=== PATIENT | male | born 1990 | race Caucasian/White ===

== ENCOUNTER → 2017-12-02 12:16 | Outpatient (CLI) | payer OTHER, SELFPAY ==
--- NOTE | 2017-12-02 | VAS_PTH ---
PATIENT: GINA HADDAD LOC: [facility] U#:[id number] AGE/SX: 34/M ROOM: RE12/02/[address]: Dr. Bay Chacon MD : 1990 BED: DIS: SPEC #: [id number] RECD: 12/02/17 12:16 STATUS: CONNOR DORSEY #: [id number] PEEWEE: 12/02/17 00:[address]: Bay Chacon DEPT: SURGICAL PATHOLOGY RECD BY: Yuliya Gillespie ENTERED: 12/02/17 14:01 SP TYPE: VAS OTHR DR: Vannessa Primary Care Phys Tissues: A - Vas deferens, NOS B - Vas deferens, NOS Procedures: Surgery Specimen Level II HEADER OPERATION: Bilateral partial vasectomy PRE-OP DIAGNOSIS: Sterilization TISSUE SUBMITTED: A ? Right vas deferens, B ? Left vas deferens MICROSCOPIC DIAGNOSIS A. Right vas deferens: Completely transected segment of vas deferens, no pathologic diagnosis. B. Left vas deferens: Completely transected segment of vas deferens, no pathologic diagnosis. ROSELYN:alonso 12/03/16 MICROSCOPIC DESCRIPTION Slides are reviewed. GROSS DESCRIPTION A - Received in fixative is one container labeled with the patient's name and designated right vas deferens. The specimen consists of a tubular piece of branch soft tissue measuring 0.6 cm in length and 0.2 cm in diameter. The specimen is totally submitted in one cassette. The specimen will be sectioned at the time of embedding. B - Received in fixative is one container labeled with the patient's name and designated left vas deferens. The specimen consists of a U-shaped piece of branch tubular tissue measuring 1.5 cm in length and 0.2 cm in diameter. The specimen is totally submitted in one cassette. The specimen will be sectioned at the time of embedding. / ROSELYN:alonso 12/02/17 TC:4 CPT: 52000 x2
== END ==
PROVIDERS: Visit Provider Surgery
DX: Z30.2 Encounter for sterilization (principal)
CPT/HCPCS: 88302

== ENCOUNTER → 2020-01-04 15:46 | Outpatient (CLI) | payer OTHER, SELFPAY ==
[2019-07-30 08:21] VITALS: BMI 34.0
[2020-01-04 18:10] LABS: Absolute Lymphocyte Count 2.32 X10^3/uL (0.83-4.51); Absolute Neutrophil Count 4.5 X10^3/uL (2.0-7.7); Basophil# 0.04 X10^3/uL; Basophil% 0.5 % (0-1); Eosinophil# 0.27 X10^3/uL; Eosinophils% 3.5 % (0-5); Hemoglobin 15.1 g/dL (13.0-16.5); Lymphocyte # 2.32 X10^3/ul (4.0); Lymphocyte % 30.4 % (19-41); Mean Corp Hgb Conc 32.8 g/dL (32-36); Mean Corpuscular Hgb 28.8 pg (27.0-32.0); Mean Corpuscular Volume 87.8 fL (80-94); Mean Platelet Vol. 9.6 fl (6.2-12.0); Monocyte# 0.49 X10^3/uL; Monocyte% 6.4 % (0-10); NRBC Flagged by Analyzer 0 % (0-5); Neutrophil % 58.9 % (47-70); Platelet Count 236 K/mm3 (150-450); RBC Distribution Width CV 12.7 % (11.6-14.6); Red Blood Count 5.24 M/mm3 (4.6-6.2); White Blood Count 7.6 K/mm3 (4.4-11.0)
[2020-01-04 18:38] LABS: ALB/GLOB Ratio 1.2 RATIO (0.9-2.4); AST(SGOT) 21 U/L (15-37); Alanine Aminotransfer ALT/SGPT 38 U/L (16-61); Alkaline Phosphatase 86 U/L (45-117); Anion Gap 4 (5-15); BUN 19 mg/dL (7-18); Calcium,Total 8.9 mg/dL (8.5-10.1); Chloride 108 mmol/L (98-107); Cholesterol 180 mg/dL (200); Creatinine, Serum 1.12 mg/dL (0.70-1.30); EST Glomerular Filtration Rate 82 mL/min (>60); Est Glom Filt Rate - Afr Amer 100 mL/min (>60); Globulin 3.3 g/dL (2.2-4.2); Glucose 109 mg/dL (74-106); High Density Lipoprotein 58 mg/dL; Potassium 4.1 mmol/L (3.5-5.1); Protein, Total 7.3 g/dL (6.4-8.2); Sodium Level 141 mmol/L (136-145); Thyroid Stim Hormone (TSH) 2.02 uIU/mL (0.358-3.74)
[2020-01-04 18:42] LABS: Microalbumin:Creatinine Ratio 8.1 mg/g CRE (<30 mg/g CRE)
== END ==
PROVIDERS: PCP Family Medicine; Referring Provider Family Medicine; Visit Provider Family Medicine
DX: I10 Essential (primary) hypertension (principal)
CPT/HCPCS: 36415; 80053; 82043; 82465; 82570; 83718; 84443; 85025

== ENCOUNTER 2020-08-17 11:43 | Observation (INO) | payer OTHER, SELFPAY ==
[2019-07-30 08:21] VITALS: BMI 34.0
[2020-08-17] VITALS (14 sets, daily range): BP systolic 130–167; BP diastolic 69–106; PULSE 57–102; RESP 16–18; TEMP 35.9–36.9; O2SAT 93–99; BMI 37.3
--- NOTE | 2020-08-17 11:49 | CT_ITS ---
STUDY: CT ABDOMEN AND PELVIS WITH CONTRAST REASON FOR EXAM: Male, 29 years old. RLQ PAIN X 3 DAYS RADIATION DOSAGE (If Supplied By Facility): CTDIvol = ( 16.94 ) mGy, DLP = ( 1346.00 ) mGycm TECHNIQUE: Transaxial images were obtained from the dome of the diaphragm to the symphysis pubis without oral contrast. IV 100mL Isovue-300 was administered. Sagittal and coronal images were reconstructed. Individualized dose optimization techniques were used for this CT. COMPARISON: None. FINDINGS: The visualized lung bases are unremarkable. The visualized portions of the heart are within normal limits. Normal liver. The gallbladder is contracted. Normal spleen. Normal pancreas. Normal bilateral adrenal glands. There is a 4.3 cm x 4.4 cm cyst in the inferior midportion of the right kidney. There is a 1.7 cm cyst in the anterior midportion of the right kidney. Normal left kidney. Normal visualized stomach. Normal small intestine. Normal colon. Mild degree of periappendiceal inflammatory changes along its proximal aspect. There is dilatation of the proximal aspect of the appendix. There is also evidence of small retroperitoneal lymph nodes in the right lower quadrant. Normal abdominal aorta. Normal inferior vena cava. There is borderline retroperitoneal lymphadenopathy with enlarged nodes no greater than 10mm in the short axis diameter. Normal urinary bladder. Normal abdominal wall. Normal osseous structures. CT/Abdomen/Pelvis W IV Cont ONLY IMPRESSION: Findings suggestive of early acute noncomplicated appendicitis. Electronically Signed: Harvinder Ventura, at 13:56 EDT , Service support ,
--- NOTE | 2020-08-17 11:53 | ED.VIS.GEN ---
History of Present Illness Chief Complaint: Abd Pain Informant: Patient Narrative: 29-year-old male with past medical history of hypertension presents with concern for right lower quadrant pain. States that 2 days ago he began having diffuse abdominal pain which was aching and nonspecific. States that it is to his right lower quadrant yesterday. Describes a sharp and worse with movement. Admits to nausea without vomiting. Denies any constipation or diarrhea. Denies any urinary symptoms. Denies any trauma. Past Medical History - Allergies and Home Meds Allergies/Adverse Reactions: Allergies No Known Allergies Allergy (Verified 08/17/20 11:45) Past Medical History: - - HTN Surgical History: tonsillectomy Lives: With Family Smoking Status: Former smoker Alcohol: None Drugs: None - Family History Maternal Family History: Family History (Last Reviewed 07/30/19 @ 08:20 by Marian Jenkins) Mother Diabetes Hypertension Father Hypertension Review of Systems General: Denies: Chills, Fever, Sweats Eyes: Denies: Visual changes - bilaterally, Diplopia ENT: Denies: Rhinorrhea, Sore throat Cardiovascular: Denies: Chest pain, Palpitations Respiratory: Denies: Dyspnea, Cough, Dyspnea on exertion Gastrointestinal: Reports: Abdominal pain, Nausea. Denies: Vomiting, Diarrhea, Melena, Hematochezia Genitourinary: Denies: Dysuria, Hematuria, Frequency Musculoskeletal: Denies: Back pain, Extremity Pain Skin: Denies: Rash, Wounds Neurological: Denies: Headache, Weakness, Numbness Physical Exam Vital Signs/Narrative: Vital Signs Temp Pulse Resp BP Pulse Ox 08/17/20 11:44 98 F 102 H 16 156/69 H 98 General: Well nourished, Well developed, No Acute Distress Head: Normocephalic, Atraumatic Eyes: Perrl, EOMI ENT: Moist mucous membranes, No rhinorrhea Neck: Supple, Nontender Cardiovascular: Regular rate, Regular rhythm, No murmurs Respiratory: No distress, CTA bilaterally, Chest nontender Abdomen: Soft, Nondistended, Normal bowel sounds, - - TTP in the RLQ. Back: Nontender, Normal Inspection Extremities: Nontender, No edema Skin: Normal color, No rash Neurological: Alert, Oriented x3, Cranial nerves II-XII grossly intact, Normal Strength, Normal Sensation Psychological: Normal affect, Normal Mood Diagnostic/Tx/Re-eval Clinical Impression(s) from Imaging Studies Abdomen/Pelvis CT 08/17/20 11:49 IMPRESSION: Findings suggestive of early acute noncomplicated appendicitis. Electronically Signed: Harvinder Ventura, at 13:56 EDT , Service support , Laboratory Data 08/17/20 08/17/20 08/17/20 12:00 12:00 12:00 WBC 7.5 RBC 5.70 Hgb 16.8 H Hct 48.8 MCV 85.6 MCH 29.5 MCHC 34.4 RDW Std Deviation 36.6 RDW Coeff of Lor 11.9 Plt Count 224 MPV 9.0 Immature Gran % (Auto) 0.300 Neut % (Auto) 68.3 Lymph % (Auto) 20.4 [place] % (Auto) 7.7 Eos % (Auto) 2.9 Baso % (Auto) 0.4 Absolute Neuts (auto) 5.1 Absolute Lymphs (auto) 1.53 Nucleated RBC % 0 Sodium 141 Potassium 3.9 Chloride 109 H Carbon Dioxide 23.0 Anion Gap 9 BUN 27 H Creatinine 1.11 Estim Creat Clear Calc 107.78 Est GFR (MDRD) Af Amer 100 Est GFR (MDRD) Non-Af 83 BUN/Creatinine Ratio 24.3 H Glucose 107 H Lactic Acid 1.4 Calcium 9.4 Total Bilirubin 0.60 Direct Bilirubin 0.14 AST 16 ALT 37 Alkaline Phosphatase 78 Total Protein 8.1 Albumin 4.4 Globulin 3.7 Albumin/Globulin Ratio 1.2 Urine Color Urine Clarity Urine pH Ur Specific [place] Urine Protein Urine Glucose (UA) Urine Ketones Urine Occult Blood Urine Nitrite Urine Bilirubin Urine Urobilinogen Ur Leukocyte Esterase Urine RBC Urine WBC Ur Squamous Epith Cells Urine Bacteria Urine Mucus 08/17/20 13:30 WBC RBC Hgb Hct MCV MCH MCHC RDW Std Deviation RDW Coeff of Lor Plt Count MPV Immature Gran % (Auto) Neut % (Auto) Lymph % (Auto) [place] % (Auto) Eos % (Auto) Baso % (Auto) Absolute Neuts (auto) Absolute Lymphs (auto) Nucleated RBC % Sodium Potassium Chloride Carbon Dioxide Anion Gap BUN Creatinine Estim Creat Clear Calc Est GFR (MDRD) Af Amer Est GFR (MDRD) Non-Af BUN/Creatinine Ratio Glucose Lactic Acid Calcium Total Bilirubin Direct Bilirubin AST ALT Alkaline Phosphatase Total Protein Albumin Globulin Albumin/Globulin Ratio Urine Color Straw Urine Clarity Clear Urine pH 6.0 Ur Specific [place] 1.020 Urine Protein 15 H Urine Glucose (UA) Normal Urine Ketones Negative Urine Occult Blood Negative Urine Nitrite Negative Urine Bilirubin Negative Urine Urobilinogen Normal Ur Leukocyte Esterase Negative Urine RBC 0 SEEN Urine WBC 0-5 SEEN Ur Squamous Epith Cells 0 SEEN Urine Bacteria 1+ Urine Mucus 0 SEEN - Medical Decision Making Patient appears well nontoxic. Vital signs within normal limits. Tenderness to palpation in the right lower quadrant. Lab work within normal limits. Patient was given 1 L of normal saline, morphine, Zofran. CT shows evidence of acute appendicitis. Patient was given Zosyn. Woke with surgeon on-call Dr. Stuart, who was agreeable to taking the patient to the operating room. Admitted in stable condition. Impression: 1. Acute appendicitis ED Disposition - Plan for ED Patient: Disposition: Acute Care [facility]
[2020-08-17] MEDS: Ondansetron 4 MG/2 ML Vial IV (12:14)
[2020-08-17] MEDS: 0.9% Normal Saline 1,000 ML 1000 ML IV (12:14)
[2020-08-17] MEDS: Morphine 4 MG/ML Syringe IV (12:14)
[2020-08-17 12:18] LABS: Absolute Lymphocyte Count 1.53 X10^3/uL (0.83-4.51); Absolute Neutrophil Count 5.1 X10^3/uL (2.0-7.7); Basophil# 0.03 X10^3/uL; Basophil% 0.4 % (0-1); Eosinophil# 0.22 X10^3/uL; Eosinophils% 2.9 % (0-5); Hematocrit 48.8 % (40-54); Hemoglobin 16.8 g/dL (13.0-16.5); Lymphocyte # 1.53 X10^3/ul (4.0); Lymphocyte % 20.4 % (19-41); Mean Corp Hgb Conc 34.4 g/dL (32-36); Mean Corpuscular Hgb 29.5 pg (27.0-32.0); Mean Corpuscular Volume 85.6 fL (80-94); Monocyte# 0.58 X10^3/uL; Monocyte% 7.7 % (0-10); NRBC Flagged by Analyzer 0 % (0-5); Neutrophil # 5.12 X10^3/uL (2.7-7.7); Neutrophil % 68.3 % (47-70); Platelet Count 224 K/mm3 (150-450); RBC Distribution Width CV 11.9 % (11.6-14.6); RBC Distribution Width SD 36.6 fl (35.1-43.9); White Blood Count 7.5 K/mm3 (4.4-11.0)
[2020-08-17 12:46] LABS: Lactic Acid 1.4 mmol/L (0.4-1.9)
[2020-08-17 12:54] LABS: ALB/GLOB Ratio 1.2 RATIO (0.9-2.4); AST(SGOT) 16 U/L (15-37); Alanine Aminotransfer ALT/SGPT 37 U/L (16-61); Albumin, Serum 4.4 g/dL (3.2-5.0); Alkaline Phosphatase 78 U/L (45-117); Anion Gap 9 (5-15); BUN 27 mg/dL (7-18); BUN/Creat Ratio 24.3 RATIO (10-20); Bilirubin, Direct 0.14 mg/dL (0.00-0.30); Calcium,Total 9.4 mg/dL (8.5-10.1); Chloride 109 mmol/L (98-107); Creatinine, Serum 1.11 mg/dL (0.70-1.30); EST Glomerular Filtration Rate 83 mL/min (>60); Est Glom Filt Rate - Afr Amer 100 mL/min (>60); Estimated Creatinine Clearance 107.78 ml/min; Globulin 3.7 g/dL (2.2-4.2); Glucose 107 mg/dL (74-106); Potassium 3.9 mmol/L (3.5-5.1); Protein, Total 8.1 g/dL (6.4-8.2); Sodium Level 141 mmol/L (136-145)
[2020-08-17 13:37] LABS: Mucous, Urine 0 SEEN /hpf (<or=2+); Red Blood Cells-Urine 0 SEEN /hpf (0-5); Squamous Epithelial Cells - UA 0 SEEN /hpf (0-5)
[2020-08-17 13:38] LABS: Color, Urine Straw (Yellow); Glucose, Dipstick Normal (Normal); Ketone-Dipstick Negative (Negative); Leukocyte Esterase-Dipstick Negative /ul (Negative); Nitrite-Dipstick Negative (Negative); Occult Blood-Urine Negative /ul (Negative); Protein-Dipstick 15 mg/dl (Negative); Urine Bilirubin Dipstick Negative (Negative); Urine Clarity Clear (Clear); Urine Urobilinogen Normal (Normal)
[2020-08-17 13:55] LABS: Bacteria 1+ /hpf (None Seen); White Blood Cells 0-5 SEEN /hpf (0-5)
[2020-08-17] MEDS: fentaNYL 100 MCG/2 ML Ampul IV (14:37)
--- NOTE | 2020-08-17 14:54 | HP.PCM_ITS ---
Problem List (1) Acute appendicitis Status: Acute Qualifiers: Acute appendicitis type: unspecified acute appendicitis type Qualified Code(s): K35.80 - Unspecified acute appendicitis History of Present Illness Date of Admission: 08/17/20 The patient is a 29 year old M presented with abdominal pain. CT scan revealed acute appendicitis. The patient reports no nausea or vomiting only pain in the right lower quadrant. Past Medical History Medical History: Medical History (Last Reviewed 07/30/19 @ 08:20 by Marian Jenkins) Epididymitis (Acute) N45.1 Encounter for sterilization (Acute) Z30.2 Allergies No Known Allergies Allergy (Verified 08/17/20 11:45) Home Medications: Ambulatory Orders Medication Instructions Recorded Unobtainable 08/17/20 Surgical History: Surgical History (Last Updated 07/30/19 @ 08:20 by Marian Jenkins) History of tonsillectomy Z98.890, Z90.89 S/P vasectomy Z98.52 Surgical History: tonsillectomy Lives: With Family Smoking Status: Former smoker Alcohol: None Drugs: None - *Family History Maternal Family History: Family History (Last Reviewed 07/30/19 @ 08:20 by Marian Jenkins) Mother Diabetes Hypertension Father Hypertension Review of Systems Constitutional: Denies: Anorexia, Fever HEENT: Denies: Difficulty Swallowing Cardiovascular: Denies: Chest Pain Respiratory: Denies: Cough, Shortness of Breath Gastrointestinal: Reports: Abdominal Pain. Denies: Nausea, Vomiting Musculoskeletal: Denies: Joint Pain Skin: Denies: Dryness, Jaundice Psychiatric: Denies: Anxiety Hematologic/ Lymphatic: Denies: Anemia VTE Information - Inpt Only VTE Present on Admission: No VTE Mechan Device Prophylaxis: SCD's - Physical Exam Vitals/I&O's: Vital Signs Temp Pulse Resp BP Pulse Ox 98 F 80 16 140/76 H 98 08/17/20 11:44 08/17/20 13:34 08/17/20 11:44 08/17/20 13:34 08/17/20 11:44 Oxygen Delivery Method Room Air Weight: 275 lb Body Mass Index (BMI) 37.3 Intake and Output for Last 24 Hours 08/15/20 08/16/20 08/17/20 23:59 23:59 23:59 Intake Total 1000 / 1000 Balance 1000 / 1000 General: Alert, Oriented x3 Neck: No JVD Lungs: Normal air movement Cardiovascular: Regular rate, Regular Rhythm Abdomen: Soft, Non-Distended, Tender - Tender right lower quadrant Musculoskeletal: No Muscle Wasting Neurological: Cranial nerves II-XII grossly intact Psych/Mental Status: Normal Affect Laboratory Results 08/17/20 12:00: WBC 7.5, RBC 5.70, Hgb 16.8 H, Hct 48.8, MCV 85.6, MCH 29.5, MCHC 34.4, RDW Std Deviation 36.6, RDW Coeff of Lor 11.9, Plt Count 224, MPV 9.0, Immature Gran % (Auto) 0.300, Neut % (Auto) 68.3, Lymph % (Auto) 20.4, [place] % (Auto) 7.7, Eos % (Auto) 2.9, Baso % (Auto) 0.4, Absolute Neuts (auto) 5.1, Absolute Lymphs (auto) 1.53, Nucleated RBC % 0 08/17/20 12:00: Sodium 141, Potassium 3.9, Chloride 109 H, Carbon Dioxide 23.0, Anion Gap 9, BUN 27 H, Creatinine 1.11, Estim Creat Clear Calc 107.78, Est GFR (MDRD) Af Amer 100, Est GFR (MDRD) Non-Af 83, BUN/Creatinine Ratio 24.3 H, Glucose 107 H, Calcium 9.4, Total Bilirubin 0.60, Direct Bilirubin 0.14, AST 16, ALT 37, Alkaline Phosphatase 78, Total Protein 8.1, Albumin 4.4, Globulin 3.7, Albumin/Globulin Ratio 1.2 08/17/20 12:00: Lactic Acid 1.4 08/17/20 13:30: Urine Color Straw, Urine Clarity Clear, Urine pH 6.0, Ur Specific [place] 1.020, Urine Protein 15 H, Urine Glucose (UA) Normal, Urine Ketones Negative, Urine Occult Blood Negative, Urine Nitrite Negative, Urine Artem irubin Negative, Urine Urobilinogen Normal, Ur Leukocyte Esterase Negative, Urine RBC 0 SEEN, Urine WBC 0-5 SEEN, Ur Squamous Epith Cells 0 SEEN, Urine Bacteria 1+, Urine Mucus 0 SEEN Clinical Impression(s) from Imaging Studies Abdomen/Pelvis CT 08/17/20 11:49 IMPRESSION: Findings suggestive of early acute noncomplicated appendicitis. Electronically Signed: Harvinder Ventura, at 13:56 EDT , Service support , Assessment/Plan All Active Problems (Last Reviewed 07/30/19 @ 08:20 by Marian Jenkins) Acute appendicitis (Acute) Epididymitis (Acute) Encounter for sterilization (Acute) 29-year-old male with acute appendicitis 1. The patient has acute appendicitis based on CT scan. I discussed this with the patient in detail. The patient has very proximal inflammation of his appendix. I discussed with the patient that this may necessitate conversion to open therapy and ileocecectomy if I was unable to staple across the base of the appendix. I also discussed laparoscopic appendectomy with the patient in detail as well as the risks including but not limited to bleeding, infection, injury to surrounding organs such as the bowel, bladder, ureter. The patient understands all the risks and is well to proceed. Patient was given Zosyn in the emergency room will be taken out of the OR as soon as possible. Gerry Sims MD Pager: [facility] [address] [place] [address], [address] [place] [address] Office:
[2020-08-17] MEDS: Lactated Ringers 1,000 ML 100 ML IV (16:00)
[2020-08-17] MEDS: Bupiv/Epi 0.25% 30 ML Vial (16:48)
--- NOTE | 2020-08-17 16:55 | OP.PCM_ITS ---
Problem List (1) Acute appendicitis Status: Acute Qualifiers: Acute appendicitis type: unspecified acute appendicitis type Qualified Code(s): K35.80 - Unspecified acute appendicitis Report of Operation Date of Procedure: 08/17/20 Pre-Operative Diagnosis: Acute appendicitis Post-Operative Diagnosis: Same Surgery/Procedure Performed:: Laparoscopic appendectomy Specimen's removed: Appendix Description of Procedure: The patient was brought into the operating room and general anesthesia was induced. The left arm was tucked and the abdomen was prepped and draped in usual sterile fashion. A small midline incision was made superior to the umbilicus and deepened to the level of the fascia. The fascia was elevated and incised. The peritoneum was also elevated and incised. A finger sweep was performed and a balloon trocar was placed into the abdomen and inflated. The abdomen was insufflated to 15 mmHg and the camera was inserted and the abdomen was inspected for any injuries upon entering the abdomen. There were none. The patient was placed in Trendelenburg position and a 5 mm ports placed in the left lower quadrant and suprapubic areas under direct visualization. Next using atraumatic bowel graspers the appendix was identified. The appendix was grasped and elevated and Enseal was used to take down the mesoappendix. A stapler was used to come across the base of the appendix. The appendix was then placed in Endo Catch bag and removed through the umbilical incision. The staple line was inspected and found to be hemostatic and intact. The 2 5 mm ports are removed under direct visualization. The balloon trocar was deflated and removed and all the air was removed from the abdomen. The umbilical incision fascia was closed with an 0 Vicryl [id number] suture. The incisions were then irrigated with saline and dried. Local anesthetic was injected into the incision sites. The skin incisions were then closed with interrupted 4-0 Monocryl suture and Steri- Strips. Bandages were applied and the patient was awoken and taken to PACU in stable condition. Patient tolerated the procedure well. - Admit VTE Documentation VTE Mechan Device Prophylaxis: SCD's
[2020-08-17] MEDS: 0.9% Normal Saline 1,000 ML 100 ML IV (18:25)
[2020-08-17] MEDS: Ketorolac 15 MG/ML Vial IV (19:53)
--- NOTE | 2020-08-17 20:28 | NURSING ---
pt stood and ambulated to brp and voided without difficulty
[2020-08-18 03:34] VITALS: BP 128/78; PULSE 90; RESP 16; TEMP 36.6; O2SAT 98
[2020-08-18] MEDS: oxyCODONE 5 MG Tablet PO ×2 (03:44→08:19)
[2020-08-18] MEDS: 0.9% Normal Saline 1,000 ML 100 ML IV (03:44)
--- NOTE | 2020-08-18 07:11 | PCM.WORK.EX ---
Work/School Excuse Work/School Excuse for:: Patient Please excuse this person from:: Work From: 08/18/20 through: 08/22/20 - May return to light duty on 08/23. No lifting over 20 lbs or strenuous activity. May return to full duty work 08/31 Restrictions: Light Duty
--- NOTE | 2020-08-18 07:12 | DCINST_ITS ---
Discharge Diet: Light diet - advance as tolerated Discharge Activity: May Not Drive - for 3-5 days or while taking narcotic pain meds. May shower in (days): 1 Lifting Restrictions: 20 lbs for 2 weeks Call your doctor if your incision/area has: Continuous Slow Oozing, Sudden Increased Bleeding, Increased Pain/ Swelling, Increased Redness, Foul Smelling Discharge Call your doctor if you observe: Fever of 101 or Higher Suture Line Care: Avoid Pulling/Pushing, Avoid Pinching/Bending Additional Dressing/Incision Instructions:: Keep dressing clean and dry. Change or remove dressing in 2 days. Leave steri strips for 1 week. May protect with a gauze bandaid. Medications to take at Discharge Quinapril HCl [Accupril] 5 mg PO QHS 08/17/20 Docusate Sodium [Colace] 100 mg PO BID 10 Days #20 cap 08/18/20 Oxycodone HCl/Acetaminophen [Percocet 5-325 mg Tablet] 1 - 2 tab PO Q6H PRN PRN 5 Days #30 tablet 08/18/20 Allergies/Adverse Reactions: Allergies No Known Allergies Allergy (Verified 08/17/20 11:45) The following prescriptions were given: Docusate Sodium [Colace] 100 mg PO BID 10 Days #20 cap Transmission Status: Pending to [facility] Oxycodone HCl/Acetaminophen [Percocet 5-325 mg Tablet] 1 - 2 tab PO Q6H PRN PRN 5 Days #30 tablet PRN Reason: Pain Score 4-10/10 Transmission Status: Sent to [facility] Test Results: Test results from this visit will be discussed in further detail at your follow- up appointment, if applicable. Please Follow Up With: Gerry Sims MD When: Please call to schedule 2 week follow up appointment. [phone]
[2020-08-18 08:14] VITALS: BP 137/74; PULSE 83; RESP 18; TEMP 36.4; O2SAT 96
--- NOTE | 2020-08-19 17:50 | APP_PTH ---
PATIENT: GINA HADDAD LOC: [facility] U#:[id number] AGE/SX: 29/M ROOM: MS313 RE08/17/[address]: Dr. Gerry Sims MD : 1990 BED: 1 DIS: 08/18/2020 SPEC #: [id number] RECD: 08/20/20 07:19 STATUS: CONNOR WILLIAN #: [id number] PEEWEE: 08/19/20 17:[address]: Gerry Sims DEPT: SURGICAL PATHOLOGY RECD BY: Yuliya Gillespie ENTERED: 08/20/20 09:11 SP TYPE: APPENDIX OTHR DR: Dr. Quintin Mathis MD Tissues: Appendix, NOS Procedures: Surgery Specimen Level III HEADER OPERATION: Laparoscopic appendectomy PRE-OP DIAGNOSIS: Acute appendicitis TISSUE SUBMITTED: Appendix MICROSCOPIC DIAGNOSIS Appendix, appendectomy: Appendix, negative for acute inflammation in the lumen or appendicular wall. See comment. ROSELYN:alonso 08/22/20 COMMENT The entire appendix is submitted. Multiple levels are examined. Focal fibrous lumimal obliteration of the lumen is noted. Case has been reviewed in consultation with Dr. Downs who concurs with the above diagnosis. IDC:AM MICROSCOPIC DESCRIPTION Slides are reviewed. GROSS DESCRIPTION Received in fixative is one container labeled with the patient's name and designated appendix. The specimen consists of an appendix with attached periappendiceal adipose tissue measuring 3.8 cm in length and up to 1 cm in diameter. The attached periappendiceal adipose tissue measures up to 3.5 cm in width. No obvious perforation is identified. The lumen contains small amount of fecal material. No fecalith is identified. Entry Level Administrative Assistant sections are submitted in one cassette. / SJ:alonso 08/20/20 The rest of the appendix is submitted in one more cassettes, #2. / SJ:alonso 08/21/20 TC:4 CPT: 21812
== END 2020-08-18 10:01 | disposition home or self-care (01) ==
LOC: ED 14:14 → MS3 08-20 10:54
PROVIDERS: Admitting Provider Surgery; Emergency Provider Emergency Medicine; PCP Family Medicine; Visit Provider Surgery
PROC: 0DTJ4ZZ Resection of Appendix, Percutaneous Endoscopic Approach (ICD-10-PCS; CPT 44970; principal; 2020-08-17 17:30)
DX: K35.80 Unspecified acute appendicitis (principal); I10 Essential (primary) hypertension; Z87.891 Personal history of nicotine dependence
CPT/HCPCS: 00840; 44970; 74177; 80053; 80076; 81001; 83605; 85025; 88304; 96361; 96365; 96375; 99218; 99284; J7030; J7050; J7120; Q9967; A4216; C1760; G0378; J2405

== ENCOUNTER → 2020-09-18 16:56 | Outpatient (CLI) | payer OTHER, SELFPAY ==
[2020-08-17 19:21] VITALS: BMI 37.3
[2020-09-18 17:50] LABS: Absolute Lymphocyte Count 1.87 X10^3/uL (0.83-4.51); Absolute Neutrophil Count 7.4 X10^3/uL (2.0-7.7); Basophil# 0.02 X10^3/uL; Basophil% 0.2 % (0-1); Eosinophil# 0.11 X10^3/uL; Eosinophils% 1.1 % (0-5); Hematocrit 45.4 % (40-54); Hemoglobin 15.4 g/dL (13.0-16.5); Lymphocyte # 1.87 X10^3/ul (4.0); Lymphocyte % 18.3 % (19-41); Mean Corp Hgb Conc 33.9 g/dL (32-36); Mean Corpuscular Hgb 28.7 pg (27.0-32.0); Mean Corpuscular Volume 84.5 fL (80-94); Mean Platelet Vol. 8.8 fl (6.2-12.0); Monocyte# 0.73 X10^3/uL; Monocyte% 7.2 % (0-10); NRBC Flagged by Analyzer 0 % (0-5); Neutrophil # 7.44 X10^3/uL (2.7-7.7); Neutrophil % 72.9 % (47-70); Platelet Count 204 K/mm3 (150-450); RBC Distribution Width CV 11.8 % (11.6-14.6); RBC Distribution Width SD 35.8 fl (35.1-43.9); Red Blood Count 5.37 M/mm3 (4.6-6.2); White Blood Count 10.2 K/mm3 (4.4-11.0)
[2020-09-18 18:20] LABS: ALB/GLOB Ratio 1.3 RATIO (0.9-2.4); AST(SGOT) 20 U/L (15-37); Alanine Aminotransfer ALT/SGPT 37 U/L (16-61); Albumin, Serum 4.2 g/dL (3.2-5.0); Alkaline Phosphatase 95 U/L (45-117); Anion Gap 5 (5-15); BUN 19 mg/dL (7-18); BUN/Creat Ratio 18.6 RATIO (10-20); Calcium,Total 9.3 mg/dL (8.5-10.1); Chloride 105 mmol/L (98-107); Creatinine, Serum 1.02 mg/dL (0.70-1.30); EST Glomerular Filtration Rate 91 mL/min (>60); Est Glom Filt Rate - Afr Amer 110 mL/min (>60); Globulin 3.3 g/dL (2.2-4.2); Glucose 89 mg/dL (74-106); Potassium 3.9 mmol/L (3.5-5.1); Protein, Total 7.5 g/dL (6.4-8.2); Sodium Level 137 mmol/L (136-145)
[2020-09-21 16:07] LABS: ANTINUCLEAR ANTIBODIES DIRECT Negative (Negative)
[2020-09-22 08:04] LABS: Immunoglobulin E 181 IU/mL (6-495)
== END ==
PROVIDERS: PCP Family Medicine; Referring Provider Family Medicine; Visit Provider Family Medicine
DX: L50.9 Urticaria, unspecified (principal); R79.82 Elevated C-reactive protein (CRP)
CPT/HCPCS: 36415; 80053; 82785; 85025; 86038; 86140

== ENCOUNTER → 2021-09-03 09:36 | Outpatient (CLI) | payer OTHER, SELFPAY ==
--- NOTE | 2021-09-03 09:38 | US_ITS ---
STUDY: SCROTUM ULTRASOUND REASON FOR EXAM: Male, 30 years old. Left testicular pain. TECHNIQUE: Ultrasound evaluation of the scrotum was performed with color Doppler and static carbajal-scale imaging. COMPARISON: None. FINDINGS: RIGHT TESTICLE INTRATESTICULAR: There is a normal size of the right testicle. The right testicle measures 4.6 cm x 3 cm x 2.5 cm. There is a homogenous echotexture. There is normal arterial and normal venous vascularity. There is no demonstrated right testicular mass or cyst. EXTRATESTICULAR: The epididymis is normal in size. The epididymis head measures 1.5 cm x 0.9 cm x 0.6 cm. There is normal vascularity of the epididymis. There is no demonstrated epididymal cystic structure. There is no demonstrated hydrocele. There is no demonstrated varicocele. There is no demonstrated extratesticular mass or cyst. LEFT TESTICLE INTRATESTICULAR: There is a normal size of the left testicle. The left testicle measures 4.4 cm x 3.2 cm x 2.4 cm. There is a homogenous echotexture. There is normal arterial and normal venous vascularity. There is no demonstrated left testicular mass or cyst. EXTRATESTICULAR: The epididymis is normal in size. The epididymis head measures 1 cm x 0.7 cm x 1 cm. There is normal vascularity of the epididymis. There is no demonstrated epididymal cystic structure. There is no demonstrated hydrocele. There is no demonstrated varicocele. There is no demonstrated extratesticular mass or cyst. US/Testicular with Arterial Flow IMPRESSION: Normal bilateral testicles. Electronically Signed: Harvinder Ventura MD at 13:46 EST , Service support ,
== END ==
PROVIDERS: PCP Family Medicine; Referring Provider Surgery; Visit Provider Surgery
DX: N50.812 Left testicular pain (principal); N45.1 Epididymitis
CPT/HCPCS: 76870; 93976

== ENCOUNTER → 2022-07-31 | Outpatient (CLI) | payer OTHER, SELFPAY ==
[2022-07-31 18:33] LABS: ALB/GLOB Ratio 1.2 RATIO (0.9-2.4); AST(SGOT) 20 U/L (15-37); Alanine Aminotransfer ALT/SGPT 38 U/L (16-61); Alkaline Phosphatase 79 U/L (45-117); Anion Gap 5 (5-15); BUN 21 mg/dL (7-18); BUN/Creat Ratio 17.4 RATIO (10-20); Calcium,Total 9.2 mg/dL (8.5-10.1); Chloride 108 mmol/L (98-107); Creatinine, Serum 1.21 mg/dL (0.70-1.30); EST Glomerular Filtration Rate 74 mL/min (>60); Est Glom Filt Rate - Afr Amer 90 mL/min (>60); Globulin 3.2 g/dL (2.2-4.2); Glucose 80 mg/dL (74-106); Potassium 4.2 mmol/L (3.5-5.1); Protein, Total 7.2 g/dL (6.4-8.2); Sodium Level 140 mmol/L (136-145)
== END | disposition home or self-care (01) ==
PROVIDERS: PCP Family Medicine; Referring Provider Family Medicine; Visit Provider Nurse Practitioner Family
DX: R10.9 Unspecified abdominal pain (principal)
CPT/HCPCS: 36415; 80053

== ENCOUNTER → 2022-12-18 | Outpatient (CLI) | payer OTHER, SELFPAY ==
--- NOTE | 2022-12-18 06:30 | MRI_ITS ---
STUDY: MRI LEFT ANKLE WITHOUT CONTRAST REASON FOR EXAM: Male, 32 years old. Fall. Ankle pain. TECHNIQUE: Standardized fat and water weighted pulse sequences were obtained in all 3 orthogonal planes. COMPARISON: X-rays of the right ankle dated June 11, 2013 FINDINGS: Normal subcutis adipose space. Normal posterior tibialis tendon. Normal flexor digitorum longus tendon. Normal flexor hallucis longus tendon. Normal peroneus longus and brevis tendons. Normal tibialis anterior tendon. Normal extensor hallucis longus tendon. Normal extensor digitorum longus tendons. Normal Achilles tendon and teno-osseous insertion. Normal plantar fascia. Normal plantar calcaneal tubercles. Normal intrinsic muscles of the rearfoot. Normal distal tibiofibular syndesmotic ligamentous complex. Normal lateral ligamentous complex. Normal subtalar ligaments and sinus tarsi. Normal deltoid ligamentous complexes. Normal plantar calcaneonavicular (spring) ligament. Moderate arthrosis of the tibiotalar joint with a moderate-sized tibiotalar joint effusion. Bone marrow edema in the talar dome (sagittal series 7 image 16). Moderate arthrosis of the subtalar joint with reactive bone marrow edema and osteophytes (sagittal series 7 images 8-14). Mild arthrosis of the talonavicular joint. Normal calcaneocuboid articulation. Normal navicular-cuneiform articulations. 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 Focal bone marrow edema in the talar dome. No other abnormality. Electronically Signed: Schuyler Mandujano, at 10:04 EST ,
== END | disposition home or self-care (01) ==
PROVIDERS: PCP Family Medicine; Referring Provider Podiatrist Foot & Ankle Surgery; Visit Provider Podiatrist Foot & Ankle Surgery
DX: S92.132A Displaced fracture of posterior process of left talus, initial encounter for closed fracture (principal)
CPT/HCPCS: 73721

== ENCOUNTER → 2023-04-30 | Outpatient (CLI) | payer OTHER, SELFPAY ==
[2023-04-30 18:13] LABS: Microalbumin,Random Urine 22.5 mg/L (NO RANGE EST.); Microalbumin:Creatinine Ratio 6.7 mg/g CRE (<30 mg/g CRE)
[2023-04-30 18:29] LABS: ALB/GLOB Ratio 1.1 RATIO (0.9-2.4); AST(SGOT) 14 U/L (15-37); Alanine Aminotransfer ALT/SGPT 29 U/L (16-61); Albumin, Serum 3.9 g/dL (3.2-5.0); Alkaline Phosphatase 89 U/L (45-117); Anion Gap 8 (5-15); BUN 15 mg/dL (7-18); BUN/Creat Ratio 14.6 RATIO (10-20); Calcium,Total 9.1 mg/dL (8.5-10.1); Chloride 107 mmol/L (98-107); Creatinine, Serum 1.03 mg/dL (0.70-1.30); EST Glomerular Filtration Rate 89 mL/min (>60); Est Glom Filt Rate - Afr Amer 107 mL/min (>60); Globulin 3.6 g/dL (2.2-4.2); Glucose 98 mg/dL (74-106); Potassium 3.7 mmol/L (3.5-5.1); Protein, Total 7.5 g/dL (6.4-8.2); Sodium Level 137 mmol/L (136-145); Thyroid Stim Hormone (TSH) 2.05 uIU/mL (0.358-3.74)
== END | disposition home or self-care (01) ==
LOC: MFPLAB 17:02
PROVIDERS: PCP Family Medicine; Visit Provider Family Medicine
DX: I10 Essential (primary) hypertension (principal)
CPT/HCPCS: 36415; 80053; 82043; 82570; 84443

== ENCOUNTER → 2024-06-23 | Outpatient (CLI) | payer OTHER, SELFPAY ==
[2024-06-23 17:44] LABS: Hematocrit 42.2 % (40-54); Hemoglobin 14.7 g/dL (13.0-16.5); Mean Corp Hgb Conc 34.8 g/dL (32-36); Mean Corpuscular Hgb 29.4 pg (27.0-32.0); Mean Corpuscular Volume 84.4 fL (80-94); Mean Platelet Vol. 9.3 fl (6.2-12.0); Platelet Count 261 K/mm3 (150-450); RBC Distribution Width SD 36.1 fl (35.1-43.9); White Blood Count 9.7 K/mm3 (4.4-11.0)
[2024-06-23 18:17] LABS: ALB/GLOB Ratio 1.2 RATIO (0.9-2.4); AST(SGOT) 20 U/L (15-37); Alanine Aminotransfer ALT/SGPT 43 U/L (16-61); Alkaline Phosphatase 76 U/L (45-117); Anion Gap 7 (5-15); BUN 19 mg/dL (7-18); BUN/Creat Ratio 19.3 RATIO (10-20); Calcium,Total 9.2 mg/dL (8.5-10.1); Chloride 107 mmol/L (98-107); Cholesterol 204 mg/dL (200); Creatinine, Serum 0.98 mg/dL (0.70-1.30); EST Glomerular Filtration Rate 93 mL/min (>60); Est Glom Filt Rate - Afr Amer 112 mL/min (>60); Globulin 3.2 g/dL (2.2-4.2); Glucose 94 mg/dL (74-106); High Density Lipoprotein 52 mg/dL; Potassium 3.8 mmol/L (3.5-5.1); Protein, Total 7.2 g/dL (6.4-8.2); Sodium Level 137 mmol/L (136-145); Triglycerides 205 mg/dL; Very Low Density Lipoprotein 41 mg/dL (5-40)
[2024-06-23 18:31] LABS: Microalbumin,Random Urine 11.4 mg/L (NO RANGE EST.); Microalbumin:Creatinine Ratio 7.5 mg/g CRE (<30 mg/g CRE)
== END | disposition home or self-care (01) ==
LOC: MFPLAB 15:44
PROVIDERS: PCP Family Medicine; Visit Provider Family Medicine
DX: I10 Essential (primary) hypertension (principal); E66.01 Morbid (severe) obesity due to excess calories
CPT/HCPCS: 36415; 80053; 80061; 82043; 82570; 84443; 85027

== ENCOUNTER 2024-07-06 09:17 | Emergency (ER) | payer OTHER, SELFPAY ==
[2024-07-06 09:17] VITALS: BP 131/93; PULSE 74; RESP 16; TEMP 35.9; O2SAT 94; BMI 40.8
--- NOTE | 2024-07-06 09:48 | EX.ED.GENINJ ---
HPI History of Present Illness Chief Complaint: Laceration Detail of Chief Complaint: Laceration dorsal surface right ring finger, PIP joint Informant: patient Onset/Context/Timing Onset: Hours Mechanism/Context: Blunt Injury Location of pain/injuries: - (Right ring finger) Quality of Pain: - (None unless patient moves) Location: Dorsal surface right ring finger, PIP joint Current Severity: Gone Maximum Severity: Mild Worsened by: Movement Relieved by: Rest Associated Symptoms Associated Symptoms: Negative for Parasthesias, Weakness, Loss of function or Inability to ambulate Narrative Narrative: Patient is a 33-year-old [id number] male who presents with laceration that occurred at work to the dorsal surface of his right ring finger. This over the PIP joint. He denies paresthesia, anesthesia motors. He was seen at [facility] and sent to the emergency room since there is no physician until 1 PM. He is on no antithrombotic or anticoagulant. He is on blood pressure medication. Tetanus Immunization: Unknown Prior similar symptoms: No Recent Illness/Hospitalization: No [facility] Medical History (Updated 07/06/24 @ 10:[address] Ivan Hauser MD) Epididymitis Encounter for sterilization Home Medications ?Medication ?Instructions ?Recorded ?Last Taken ?Type quinapril 5 mg tablet 5 mg PO QHS blood pressure 08/17/20 08/16/20 History sulfamethoxazole 800 1 tab PO BID #14 tabs 08/28/21 Unknown Rx mg-trimethoprim 160 mg tablet (Bactrim DS) Allergy/AdvReac Type Severity Reaction Status Date / Time No Known Allergies Allergy Verified 07/06/24 09:19 Family History Mother Diabetes Hypertension Father Hypertension Surgical History S/P appendectomy S/P vasectomy History of tonsillectomy Social History Smoking Status: Former smoker alcohol intake: never ROS ROS ED Musculoskeletal Musculoskeletal: Reports other Details: Laceration dorsal surface right ring finger over the PIP joint Neurologic Neurologic: Denies paresthesias or weakness Hematologic/Lymphatic Hematologic/Lymphatic: Denies easy bleeding or easy bruising EXAM Physical Exam Const Vital Signs: 07/06/24 09:17 Temperature 96.7 F L Temperature Source Temporal Pulse Rate 74 Respiratory Rate 16 Blood Pressure 131/93 H Blood Pressure Mean 105 Pulse Ox 94 Oxygen Delivery Method Room Air Positive well nourished and well developed General Appearance ED: well developed and NAD HEENT HEENT Narrative: Head is normocephalic. atraumatic Eyes PERRL and EOMs intact bilaterally Resp normal respiratory effort Cardio regular rhythm Rate: regular rate Extremity full ROM; Negative for normal to inspection Extremity Narrative: The extensor commonness tendon is functionally intact. The laceration does not appear to penetrate the joint capsule. Will evaluate more closely after patient has been anesthetized. Sensation is normal. Neuro oriented x3 and CN's II-XII intact bilaterally Neuro Narrative: Median, radial and ulnar function intact. Capillary refill is normal. Psych mental status grossly normal and thought process normal Skin Skin Narrative: Curvilinear laceration over the PIP joint dorsal surface right ring finger PROC Procedures Other Procedures Procedure(s): Patient was prepped draped sterile manner. The wound was incised with 1% lidocaine. There is also a linear laceration noted that was 6 mm in length. The wounds were irrigated with 100 cc of normal saline. Using 5-0 Ethilon a total of 3 stitches placed. 2 per the curvilinear laceration 1 for the linear. 1 was placed in the linear because every time the patient flex his finger it with open the wound and would begin to bleed. Patient tolerated procedure. MDM MDM MDM Narrative Medical decision making narrative: Wound that gapes when he flexes his fingers. Will anesthetize and suture. Please see procedure note in my opinion there is no indication for imaging. Discharge Plan Triage Chief Complaint: Laceration ED Provider: Ivan Hauser Dx/Rx/DC Orders Clinical Impression: Laceration of right ring finger, Hypertension Instructions: ED Laceration, Hand: All Closures Prescriptions: No Action sulfamethoxazole-trimethoprim [Bactrim DS] 800-160 mg tablet 1 tab PO BID Qty: 14 0RF quinapril 5 MG tablet 5 mg PO QHS Primary Care Provider: Quintin Mathis Referrals: Quintin Mathis MD [Primary Care Provider] - [facility] - 10 Day for suture removal Print Language: Portuguese Disposition Disposition: Home, Self Care
[2024-07-06] MEDS: Lidocaine 1% (20 ml mdv) 20 ML Vial INFILT (09:58)
== END 2024-07-06 10:54 | disposition home or self-care (01) ==
LOC: ED 10:14
PROVIDERS: Emergency Provider Emergency Medicine; PCP Family Medicine; Visit Provider Emergency Medicine
DX: S61.214A Laceration without foreign body of right ring finger without damage to nail, initial encounter (principal); I10 Essential (primary) hypertension; Z87.891 Personal history of nicotine dependence; X58.XXXA Exposure to other specified factors, initial encounter
CPT/HCPCS: 12001; 99282

== ENCOUNTER → 2025-03-23 | Outpatient (CLI) | payer OTHER, SELFPAY ==
[2025-03-23 18:01] LABS: ALB/GLOB Ratio 1.7 RATIO (0.9-2.4); AST(SGOT) 24 U/L (<=37); Alanine Aminotransfer ALT/SGPT 32 U/L (<=46); Albumin, Serum 4.7 g/dL (3.5-5.0); Alkaline Phosphatase 82 U/L (40-129); Anion Gap 13 (5-15); BUN 17 mg/dL (4-19); BUN/Creat Ratio 17.6 RATIO (10-20); Calcium,Total 9.9 mg/dL (7.6-11.0); Carbon Dioxide 22.4 mmol/L (21.0-32.0); Chloride 102 mmol/L (98-108); Creatinine, Serum 0.97 mg/dL (0.70-1.20); EST Glomerular Filtration Rate 105 (>60); Globulin 2.7 g/dL (2.2-4.2); Glucose 96 mg/dL (70-99); Potassium 3.8 mmol/L (3.3-5.1); Protein, Total 7.4 g/dL (5.9-8.4); Sodium Level 138 mmol/L (133-145); Total Bilirubin 0.44 mg/dL (0.00-1.30)
== END | disposition home or self-care (01) ==
LOC: MTLAB 16:58
PROVIDERS: PCP Family Medicine; Referring Provider Family Medicine; Visit Provider Family Medicine
DX: I10 Essential (primary) hypertension (principal)
CPT/HCPCS: 36415; 80053

== ENCOUNTER 2025-09-06 18:36 | Emergency (ER) | payer OTHER, SELFPAY ==
[2025-09-06 18:38] VITALS: BP 170/111; PULSE 83; RESP 16; TEMP 36.1; O2SAT 99; BMI 41.3
[2025-09-06 23:40] VITALS: PULSE 74; RESP 18; O2SAT 99
--- OUTSIDE RECORDS SUMMARY | 2025-09-06 23:55 | XMS RPT_ITS | CCD ---
Author Organization [facility] Care Team Providers Care Gsa Coordinator Name Role Phone Dr. Micah Mathis Primary Care Provider Dr. Micah Mathis Referring Provider SUMMER Fair Attending Provider Unavailable Primary Care Provider UnavailMICAH Luo MD Primary Care Physician [phone] SUPPEAMON DPM, GUSTAVO Mccarty Attending Unavailable MICAH MATHIS MD Primary Care Unavailable SUPPEAMON DPM, GUSTAVO Mccarty Attending Unavailable MICAH MATHIS MD Primary Care Unavailable Micah Mathis MD Primary Care Provider [phone] MICAH MATHIS Primary Care Unavailable MICAH MATHIS Primary Care Unavailable Dr. Micah Mathis MD Primary Care Provider Dr. Micah Mathis MD Attending Provider Dr. Micah Mathis MD Referring Provider Micah Mathis Attending Micah Weston Primary Care Unavailable Micah Mathis Primary Care Unavailable Micah Mathis Referring Micah Weston Attending Unavailable Ivan Hauser Attending Unavailable Micah Mathis Primary Care Unavailable Medications Current Medications Medication Drug Class(es) Dates Sig (Normalized) Sig (Original) [id number] 200 actuat albuterol 0.09 mg/actuat metered dose inhaler (6 sources) beta2-Adrenergic Agonist Start: 10-07-2022 take 2 puff(s) by inhalation every four hours as needed albuterol HFA (PROVENTIL HFA, VENTOLIN HFA) 90 mcg/actuation inhaler Indications: SOB (shortness of breath) Inhale 2 Puffs as instructed every 4 hours as needed. 1 Each 1 10/07/2022 Active Comment on above: Inhale 2 Puffs as in structed every 4 hours as needed. amoxicillin 875 mg / clavulanate 125 mg oral tablet (1 source) Penicillin-class Antibacterial Start: 04-15-2024 End: 04-22-2024 take 1 tablet by mouth twice daily amoxicillin-clavula helen potassium (AUGMENTIN) 875-125 mg per tablet Indications: Bacterial sinusitis Take 1 tablet by mouth two times a day for 7 days. 14 tablet 0 04/15/2024 04/22/2024 Active betamethasone 0.5 mg/ml / clotrimazole 10 mg/ml topical cream (6 sources) Azole Antifungal, Corticosteroid Start: 06-19-2011 clotrimazole-betame thasone (LOTRISONE) TOPICAL cream Indications: Rash Apply 1 application to affected area twice daily. UNTIL CLEAR FOR UP TO 2-3 WEEKS 30 g 1 06/19/2011 Active Comment on above: Apply 1 application to affected area twice daily. UNTIL CLEAR FOR UP TO 2-3 WEEKS cyclobenzaprine hydrochloride 10 mg oral tablet (6 sources) Muscle Relaxant Start: 11-18-2018 take 1 tablet by mouth every eight hours as needed cyclobenzaprine (FLEXERIL) 10 mg tablet Take 1 tablet by mouth three times daily as needed for Muscle Spasm. 15 tablet 11/18/2018 Active Comment on above: Take 1 tablet by edi three times daily as needed for Muscle Spasm. dextromethorphan hydrobromide 3 mg/ml / promethazine hydrochloride 1.25 mg/ml oral solution (6 sources) Phenothiazine, Uncompetitive Y-orltkl-B-aspartat e Receptor Antagonist, Sigma-1 Agonist Start: 10-07-2022 take 5 mL by mouth four times daily as needed for cough Promethazine-DM (PHENERGAN-DM) 6.25-15 mg/5 mL syrup Indications: Flu-like symptoms , SOB (shortness of breath) Take 5 mL by mouth four times daily as needed for cough. 120 mL 1 10/07/2022 Active Comment on above: Take 5 mL by mouth f our times daily as needed for cough. escitalopram 5 mg oral tablet (4 sources) Serotonin Reuptake Inhibitor Start: 09-18-2023 take 1 tablet by mouth once escitalopram oxalate (LEXAPRO) 5 mg tablet Take 1 tablet by mouth every afternoon. 09/18/2023 Active fluticasone propionate 0.05 mg/actuat metered dose nasal spray (4 sources) Corticosteroid Start: 04-15-2024 take 2 spray(s) by mouth once daily fluticasone (FLONASE) 50 mcg/actuation nasal spray Indications: Bacterial sinusitis Use 2 Sprays in each nostril once daily. Rinse mouth after use. 1 Each 04/15/2024 Active predniSONE 20 mg oral tablet (2 sources) Start: 10-07-2022 End: 10-12-2022 take 2 tablets by mouth once daily predniSONE (DELTASONE) 20 mg tablet Indications: Flu-like symptoms Take 2 tablets by mouth once daily for 5 days. 10 tablet 0 10/07/2022 10/12/2022 Active Comment on above: Take 2 tablets by [facility] once daily for 5 days. quinapril 5 mg oral tablet (10 sources) Angiotensin Converting Enzyme Inhibitor Start: 08-17-2020 take 1 tablet by mouth at bedtime Quinapril 5 MG tablet Active 5 mg PO AT BEDTIME August 17, 2020 12:00am Comment on above: Take 5 mg by mouth. ramipril 5 mg oral capsule (6 sources) Angiotensin Converting Enzyme Inhibitor Start: 09-17-2023 take 1 capsule by mouth once ramipril (ALTACE) 5 mg capsule Take 1 capsule by mouth every afternoon. 09/17/2023 Active Start: 03-04-2023 take 1 capsule by [facility] once daily ramipril 5 mg oral capsule TAKE 1 CAPSULE BY MOUTH EVERY DAY Start Date: 03/04/23 Status: Ordered sulfamethoxazole 800 mg / trimethoprim 160 mg oral tablet (10 sources) Dihydrofolate Reductase Inhibitor Antibacterial, Sulfonamide Antimicrobial Start: 06-19-2011 Sulfamethoxazole-Trimethopri m (Bactrim Ds) 800-160 mg tablet Active 1 {tbl} PO TWICE A DAY August 28, 2021 12:00am Comment on above: Take 2 tablets by [facility] twice daily. tiZANidine 4 mg oral tablet (6 sources) Central alpha-2 Adrenergic Agonist Start: 06-05-2019 take 1 tablet by mouth every six hours as needed tiZANidine (ZANAFLEX) 4 mg tablet Take 1 tablet by mouth every 6 hours as needed. 15 tablet 06/05/2019 Active Comment on above: Take 1 tablet by [facility] every 6 hours as needed. Completed/Discontinued Medications Medication Drug Class(es) Dates Sig (Normalized) Sig (Original) acetaminophen 300 mg / codeine phosphate 30 mg oral tablet (4 sources) Opioid Agonist Start: 12-01-2017 End: 12-09-2017 Acetaminophen-Codei ne (Tylenol-Codeine #3) 300-30 mg tablet Discontinued 1 {tbl} PO EVERY 6 HOURS as needed for pain December 01, 2017 1:00am December 09, 2017 4:43pm acetaminophen 325 mg / oxyCODONE hydrochloride 5 mg oral tablet (8 sources) Opioid Agonist Start: 08-18-2020 End: 08-23-2020 Oxycodone-Acetamino phen 1 EACH tablet Discontinued 1 - 2 {tbl} PO EVERY 6 HOURS NEEDED as needed for Pain Score 4-10/10 24 03August 18, 2020 August 22, 2020 12:00am August 23, 2020 12:03am Start: 08-18-2020 End: 08-23-2020 take 1 tablet by mouth every six hours as needed Oxycodone-Acetaminophen Discontinued 1 - 2 TABLET PO EVERY 6 HOURS NEEDED 24 03August 18, 2020 August 23, 2020 12:03am Start: 12-29-2015 End: 11-25-2017 Oxycodone-Acetaminophen 1 TA BLET tablet Discontinued 1 - 2 {tbl} PO EVERY 4 HOURS NEEDED as needed for Pain December 29, 2015 1:00am November 25, 2017 2:11pm Start: 12-29-2015 End: 11-25-2017 take 1 tablet by mouth every four hours as needed Oxycodone-Acetaminophen Discontinued 1 - 2 TABLET PO EVERY 4 HOURS NEEDED December 29, 2015 1:00am November 25, 2017 2:11pm ciprofloxacin 500 mg oral tablet (16 sources) Quinolone Antimicrobial Start: 08-27-2021 End: 08-28-2021 take 1 tablet by mouth twice daily Ciprofloxacin Hcl (Cipro) 500 mg tablet Discontinued 500 mg PO TWICE A DAY August 27, 2021 12:00am August 28, 2021 2:00pm Start: 07-21-2018 End: 08-02-2019 take 1 tablet by mouth twice daily Ciprofloxacin Hcl (Cipro) 500 mg tablet Discontinued 500 mg PO TWICE A DAY 07 30July 28, 2019 12:00am August 01, 2019 12:00am August 02, 2019 12:07am dicyclomine hydrochloride 20 mg oral tablet (4 sources) Anticholinergic Start: 12-23-2013 End: 11-25-2017 take 1 tablet by mouth four times daily Dicyclomine 20 MG tablet Discontinued 20 mg PO 4 TIMES DAILY December 23, 2013 1:00am November 25, 2017 2:11pm docusate sodium 100 mg oral capsule (4 sources) Start: 08-18-2020 End: 08-28-2020 take 1 capsule by mouth twice daily Docusate Sodium 100 MG capsule Discontinued 100 mg PO TWICE A DAY 14 08August 18, 2020 12:00am August 27, 2020 1:00am August 28, 2020 1:02am LORazepam 1 mg oral tablet (4 sources) Benzodiazepine Start: 11-24-2017 End: 12-09-2017 take 1 tablet by mouth once Lorazepam (Ativan) 1 mg tablet Discontinued 1 mg PO As Directed November 24, 2017 1:00am December 09, 2017 4:43pm 1 hour prior to procedure penicillin v potassium 500 mg oral tablet (4 sources) Start: 12-29-2015 End: 11-25-2017 take 1 tablet by mouth four times daily Penicillin V Potassium 500 MG tablet Discontinued 500 mg PO 4 TIMES DAILY December 29, 2015 1:00am November 25, 2017 2:11pm Problems Active Problems Problem Classification Problem Date Documented Da te Episodic/Chronic Appendicitis and other appendiceal conditions (4 sources) Acute appendicitis; Translations: [Unspecified acute appendicitis] 08-17-2020 Episodic Contraceptive and procreative management (4 sources) Patient encounter status; Translations: [Encounter for sterilization] 12-09-2017 Episodic Essential hypertension (5 sources) Hypertensive disorder; Translations: [Essential (primary) hypertension] Onset: 03-28-2025 06-18-2021 Chronic Fracture of lower limb (2 sources) Displaced fracture of posterior process of left talus, subsequent encounter for fracture with delayed healing; Translations: [Displaced fracture of posterior process of left talus, subsequent encounter for fracture with delaye] Onset: 03-20-2023 Episodic Immunizations and screening for infectious disease (4 sources) Contact with or exposure to other viral diseases; Translations: [Exposure to COVID-19 virus] 06-18-2021 Episodic Inflammatory conditions of male genital organs (4 sources) Epididymitis; Translations: [Epididymitis] 07-21-2018 Episodic Other eye disorders (1 source) Discharge from eye; Translations: [Other specified disorders of eye and adnexa] 04-15-2024 Episodic Other lower respiratory disease (1 source) Dyspnea; Translations: [Shortness of breath] Episodic Other male genital disorders (4 sources) Pain of left testicle; Translations: [Left testicular pain] 08-28-2021 Episodic Other upper respiratory disease (4 sources) Respiratory tract congestion; Translations: [Nasal congestion] 07-04-2021 Episodic Other upper respiratory disease (1 source) Other specified disorders of nose and nasal sinuses; Translations: [Other disease of nasal cavity and sinuses] 04-15-2024 Episodic Other upper respiratory infections (1 source) Bacterial sinusitis; Translations: [Chronic sinusitis, unspecified] 04-15-2024 Chronic Other upper respiratory infections (5 sources) Acute upper respiratory infection; Translations: [Acute upper respiratory infection, unspecified] 06-18-2021 Episodic Residual codes; unclassified (1 source) Influenza-like symptoms; Translations: [Other general symptoms and signs] Episodic Past or Other Problems Problem Classification Problem Date Documented Da te Episodic/Chronic Open wounds of extremities (2 sources) Laceration of right ring finger; Translations: [Laceration without foreign body of right ring finger without damage to nail, initial encounter] Onset: 07-27-2024 07-14-2024 Episodic Results Test Name Value Interpretation Reference Range Facility Anion gap in Serum or Plasma Ordered By: Micah Mathis on 03-23-2025 Anion gap [Moles/Vol] 13 mmol/L 5-15 [facility] BUN/creatinine ratioOrdered By: Micah Mathis on 03-23-2025 Urea nitrogen/Creatinine [Mass ratio] 17.6 mg/mg 10- [facility] Bilirubin, totalOrdered By: Micah Mathis on 03-23-2025 Bilirubin [Mass/Vol] 0.44 mg/dL 0.00-1.30 [facility] Carbon dioxide, total [Moles /volume] in Central venous bloodOrdered By: Micah Mathis on 03-23-2025 CO2 [Moles/Vol] 22.4 mmol/L 21.0-32.0 [facility] Chloride assayOrdered By: Mao Mathis on 03-23-2025 Chloride [Moles/Vol] 102 mmol/L 98-108 [facility] Comprehensive Metabolic Prof ilon 03-23-2025 Albumin [Mass/Vol] 4.7 g/dL Normal 3.5-5.0 [facility] Comment on above: Order Comment: Order Date: 03/23/25 Order Info: 0786-1 - CMP Performed By: #### [id number] #### [facility] [address] [place], [address] Albumin/Globulin [Mass ratio] 1.7 {ratio} Normal 0.9-2.4 [facility] Comment on above: Order Comment: Order Date: 03/23/25 Order Info: 0786-1 - CMP Performed By: #### [id number] #### [facility] [address] [place], [address] ALK PHOS 82 U/L Normal 40-129 [facility] Comment on above: Order Comment: Order Date: 03/23/25 Order Info: 0786-1 - CMP Performed By: #### [id number] #### [facility] [address] [place], [address] ALT [Catalytic activity/Vol] 32 U/L Normal <=46 [facility] Comment on above: Order Comment: Order Date: 03/23/25 Order Info: 0786-1 - CMP Performed By: #### [id number] #### [facility] [address] [place], [address] AST [Catalytic activity/Vol] 24 U/L Normal <=37 [facility] Comment on above: Order Comment: Order Date: 03/23/25 Order Info: 0786-1 - CMP Performed By: #### [id number] #### [facility] [address] [place], [address] Bilirubin [Mass/Vol] 0.44 mg/dL Normal 0.00-1.30 [facility] Comment on above: Order Comment: Order Date: 03/23/25 Order Info: 0786-1 - CMP Performed By: #### [id number] #### [facility] [address] [place], [address] BUN/CRE 17.6 RATIO Normal 10-20 [facility] Comment on above: Order Comment: Order Date: 03/23/25 Order Info: 0786-1 - CMP Performed By: #### [id number] #### [facility] [address] [place], [address] Calcium [Mass/Vol] 9.9 mg/dL Normal 7.6-11.0 [facility] Comment on above: Order Comment: Order Date: 03/23/25 Order Info: 0786-1 - CMP Performed By: #### [id number] #### [facility] [address] [place], [address] Chloride [Moles/Vol] 102 mmol/L Normal 98-108 [facility] Comment on above: Order Comment: Order Date: 03/23/25 Order Info: 0786-1 - CMP Performed By: #### L [id number] #### [facility] [address] [place], [address] CO2 [Moles/Vol] 22.4 mmol/L Normal 21.0-32.0 [facility] Comment on above: Order Comment: Order Date: 03/23/25 Order Info: 0786-1 - CMP Performed By: #### L [id number] #### [facility] [address] [place], [address] Creatinine [Mass/Vol] 0.97 mg/dL Normal 0.70-1.20 [facility] Comment on above: Order Comment: Order Date: 03/23/25 Order Info: 0786-1 - CMP Performed By: #### L [id number] #### [facility] [address] [place], [address] GAP 13 Normal 5-15 [facility] Comment on above: Order Comment: Order Date: 03/23/25 Order Info: 0786-1 - CMP Performed By: #### L [id number] #### [facility] [address] [place] [place], [address] GFR/1.73 sq M.predicted among non-blacks MDRD (S/P/Bld) [Vol rate/Area] 105 mL/min/{1.73_m2} Normal >60 [facility] Comment on above: Order Comment: Order Date: 03/23/25 Order Info: 0786-1 - CMP Result Comment: mL/m in/1.73m2 CKD-EPI Creatinine Equation (2020) Performed By: #### L [id number] #### [facility] [address] [place], [address] Globulin (S) [Mass/Vol] 2.7 g/dL Normal 2.2-4.2 [facility] Comment on above: Order Comment: Order Date: 03/23/25 Order Info: 0786-1 - CMP Performed By: #### L [id number] #### [facility] [address] [place], [address] Glucose [Mass/Vol] 96 mg/dL Normal 70-99 [facility] Comment on above: Order Comment: Order Date: 03/23/25 Order Info: 0786-1 - CMP Performed By: #### L [id number] #### [facility] [address] [place], [address] Potassium [Moles/Vol] 3.8 mmol/L Normal 3.3-5.1 [facility] Comment on above: Order Comment: Order Date: 03/23/25 Order Info: 0786-1 - CMP Performed By: #### L [id number] #### [facility] [address] [place], [address] Sodium [Moles/Vol] 138 mmol/L Normal 133-145 [facility] Comment on above: Order Comment: Order Date: 03/23/25 Order Info: 0786-1 - CMP Performed By: #### L [id number] #### [facility] [address] [place] [place], [address] T PROT 7.4 g/dL Normal 5.9-8.4 [facility] Comment on above: Order Comment: Order Date: 03/23/25 Order Info: 0786-1 - CMP Performed By: #### L [id number] #### [facility] [address] [place], [address] Urea nitrogen [Mass/Vol] 17 mg/dL Normal 4-19 [facility] Comment on above: Order Comment: Order Date: 03/23/25 Order Info: 0786-1 - CMP Performed By: #### L [id number] #### [facility] [address] [place], [address] Glomerular filtration rate ( GFR) estimation/1.73 sq m using serum, plasma, or whole bOrdered By: Micah Mathis on 03-23-2025 GFR/1.73 sq M.predicted among non-blacks MDRD (S/P/Bld) [Vol rate/Area] 105 mL/min/{1.73_m2} >60 [facility] Comment on above: mL/min/1.73m2 CKD-EP I Creatinine Equation (2020) Laboratory - Chemistry and C hemistry - challengeOrdered By: Micah Mathis on 03-23-2025 AST [Catalytic activity/Vol] 24 U/L <38 [facility] Potassium measurement (mass/ volume)Ordered By: Micah Mathis on 03-23-2025 Potassium (Unsp spec) [Mass/Vol] 3.8 mmol/L 3.3-5.1 [facility] Serum creatinine measurement (mass/volume)Ordered By: Micah Mathis on 03-23-2025 Creatinine [Mass/Vol] 0.97 mg/dL 0.70-1.20 [facility] Serum globulin measurementOr dered By: Micah Mathis on 03-23-2025 Globulin (S) [Mass/Vol] 2.7 g/dL 2.2-4.2 [facility] Serum glucose measurement (m ass/volume)Ordered By: Micah Mathis on 03-23-2025 Glucose [Mass/Vol] 96 mg/dL 70-99 [facility] Serum or plasma alanine vo otransferase (ALT) measurementOrdered By: Micah Mathis on 03-23-2025 ALT [Catalytic activity/Vol] 32 U/L <47 [facility] Serum or plasma albumin ev urement (mass/volume)Ordered By: Micah Mathis on 03-23-2025 Albumin [Mass/Vol] 4.7 g/dL 3.5-5.0 [facility] Serum or plasma albumin/glob ulin mass ratioOrdered By: Micah Mathis on 03-23-2025 Albumin/Globulin [Mass ratio] 1.7 {ratio} 0.9-2.4 [facility] Serum or plasma alkaline suman sphatase measurementOrdered By: Micah Mathis on 03-23-2025 ALP [Catalytic activity/Vol] 82 U/L 40-129 [facility] Serum or plasma calcium ev urement (mass/volume)Ordered By: Micah Mathis on 03-23-2025 Calcium [Mass/Vol] 9.9 mg/dL 7.6-11.0 [facility] Serum or plasma urea nitroge n measurement (mass/volume)Ordered By: Micah Mathis on 03-23-2025 Urea nitrogen [Mass/Vol] 17 mg/dL 4-19 [facility] Sodium levelOrdered By: Micah Mathis on 03-23-2025 Sodium [Moles/Vol] 138 mmol/L 133-145 [facility] Total proteinOrdered By: Dyan Mathis on 03-23-2025 Protein [Mass/Vol] 7.4 g/dL 5.9-8.4 [facility] CNOVon 02-06-2025 CNOV Office Visit ([facility]) GINA GILMAN ([id number]) 1990 M Date Time Provider Department 02/06/25 9:00 AM [facility]CE [facility] During your visit today, we recorded the following information about you: Temperature Pulse Respiration Blood pressure 97 degrees 75/minute 16/minute 122/78 Weight 133.7 kg Angie Arce APRN.[facility] 02/06/2025 9:39 AM Signed [facility] Subjective Gina Gilman is a 34 year old male. Patient presents with: Cough: Cough, chest congestion, bodyaches and RAE x 1 day Cough Associated symptoms include chills, headaches, sore throat and wheezing. Pertinent negatives include no chest pain and no shortness of breath. patient is a 34-year-old male with no major medical history that presents with bodyaches, cough and a headache that came on gradually for 1 day. He denies any changes in his vision, fever. He did take some Tylenol last night. That did seem to help with the symptoms. There has been flu and COVID at work and just wants to be sure that not what it is. He denies any chest pain shortness of breath no nausea vomiting or abdominal pain. Review of Systems Constitutional: Positive for chills and fatigue. HENT: Positive for congestion and sore throat. Respiratory: Positive for cough and wheezing. Negative for shortness of breath. Cardiovascular: Negative for chest pain. Neurological: Positive for headaches. Objective BP 122/78 Pulse 75 Temp 36.1 ?C (97 ?F) (Tympanic) Resp 16 Wt 133.7 kg (294 lb 12.1 oz) SpO2 96% Physical Exam Vitals reviewed. Constitutional: Appearance: Normal appearance. HENT: Head: Normocephalic and atraumatic. Right Ear: Tympanic membrane, ear canal and external ear normal. Left Ear: Tympanic membrane, ear canal and external ear normal. Nose: Congestion present. No rhinorrhea. Mouth/Throat: Mouth: Mucous membranes are moist. Pharynx: Oropharynx is clear. No oropharyngeal exudate or posterior oropharyngeal erythema. Cardiovascular: Rate and Rhythm: Normal rate and regular rhythm. Pulses: Normal pulses. Heart sounds: Normal heart sounds. Pulmonary: Effort: Pulmonary effort is normal. No respiratory distress. Breath sounds: Normal breath sounds. No stridor. Chest: Chest wall: No tenderness. Abdominal: General: Bowel sounds are normal. Lymphadenopathy: Cervical: No cervical adenopathy. Neurological: Mental Status: He is alert. {ASSESSMENT/PLAN: 1. Viral URI with cough - ICD9: 465.9, ICD10: J06.9 - Discussed viral etiology and rationale for treatment. - Symptomatic treatment with prn analgesia - Supportive care with fluids and rest - The patient may also use OTC cough and cold meds as needed, warm salt water gargles, throat lozenges and/or OTC throat spray as needed, nasal saline gtts and suction prn, and Flonase/Nasicort. - COVID AND INFLUENZA A/B AND RSV PCR, ROUTINE Angie Arce APRN.CNP History and Record Review External record(s) reviewed: prior outpatient record. Findings from review of outpatient records: previous urgent care record Differential Diagnoses - viral infection is more likely for the following reason(s): suggested by HANDP - pneumonia is less likely for the following reason(s): HANDP not suggestive Additional Tests or Interventions The following testing was considered but ultimately not selected after discussion with patient/family: Chest x-ray not clinically indicated The following medication(s) were considered but not ordered: Antibiotics not clinically indicated at this time. Disposition The patient was discharged. OTC Medications were advised: Tylenol ibuprofen, Nasacort Flonase, decongestant such as Claritin-D patient is well-appearing nontoxic in no acute respiratory distress. He presents with a viral upper respiratory infection. No concern for pneumonia or acute cardiopulmonary process today. COVID and flu are pending. Recommend [id number] symptom management such as Tylenol ibuprofen Flonase Nasacort decongestants as needed. Return with any new or worsening symptoms patient verbalized understanding discharged home. Angie Arce APRN.CNP 02/06/2025 9:39 AM Signed Patient presents with: Cough: Cough, chest congestion, bodyaches and RAE x 1 day I recommend you follow up with your Primary Care Provider (Physician, Nurse Practitioner, or Physician [facility]). YOU SHOULD SEEK MEDICAL ATTENTION IMMEDIATELY AT THE NEAREST EMERGENCY DEPARTMENT IF ANY OF THE FOLLOWING OCCURS Call 911 if you have chest pain, heaviness or discomfort Fever (temperature higher than 100.4? F / 38? C) and it doesn't go away or gets worse after 2-3 days of antibiotics Unusual or increasing pain Lightheadedness Feeling sicker at any time or not getting better as expected Can't catch your breath or have shortness of breath Were seen for eye problems and have eye pain, marlene (more content not included)... [facility]) GINA GILMAN ([id number]) 1990 M Date Time Provider Department 02/06/25 ANGIE ARCE [facility] During your visit today, we recorded the following information about you: Fahad Puente, CARMELO 02/06/2025 3:32 PM Signed Pt called in asking for the results of his Covid test. I let him know that were not back, and they they would call him once they cam in. Pt verbalized understanding. Allergies As of Date: 02/06/2025 (No Known Allergies) Date Reviewed: 02/06/2025 Reviewed by: Rossy Connors LPN - Fully Assessed Reason for Visit: Results [95] Prescriptions as of 02/06/2025 - fluticasone (FLONASE) 50 mcg/actuation nasal spray Use 2 Sprays in each nostril once daily. Rinse mouth after use. - escitalopram oxalate (LEXAPRO) 5 mg tablet Take 1 tablet by mouth every afternoon. - ramipril (ALTACE) 5 mg capsule Take 1 capsule by mouth every afternoon. - quinapril (ACCUPRIL) 5 mg tablet Take 5 mg by mouth. - Promethazine-DM (PHENERGAN-DM) 6.25-15 mg/5 mL syrup Take 5 mL by mouth four times daily as needed for cough. - albuterol HFA (PROVENTIL HFA, VENTOLIN HFA) 90 mcg/actuation inhaler Inhale 2 Puffs as instructed every 4 hours as needed. - tiZANidine (ZANAFLEX) 4 mg tablet Take 1 tablet by mouth every 6 hours as needed. - cyclobenzaprine (FLEXERIL) 10 mg tablet Take 1 tablet by mouth three times daily as needed for Muscle Spasm. - sulfamethoxazole-tri methoprim (BACTRIM DS) 800-160 mg ORAL per tablet Take 2 tablets by mouth twice daily. - clotrimazole-betamet hasone (LOTRISONE) TOPICAL cream Apply 1 application to affected area twice daily. UNTIL CLEAR FOR UP TO 2-3 WEEKS Problem List As Of Date: 02/06/2025 (None) Encounter Status:Closed by FAHAD PUENTE on 02/06/25 [facility] Emergency Department Summary on 07-06-2024 Emergency Department Summary [facility] Medical Records Department [address] [place] [address] Emergency Department Summary 07/06/24 MR#: [id number] Acct: [id number] Name: GINA GILMAN Rep #: [id number] : 1990 33 From: Ivan Hauser MD PCP: Dr. Micah Mathis MD Status:PRE ER Location: ED HPI History of Present Illness Chief Complaint: Laceration Detail of Chief Complaint: Laceration dorsal surface right ring finger, PIP joint Informant: patient Onset/Context/Timing Onset: Hours Mechanism/Context: Blunt Injury Location of pain/injuries: - (Right ring finger) Quality of Pain: - (None unless patient moves) Location: Dorsal surface right ring finger, PIP joint Current Severity: Gone Maximum Severity: Mild Worsened by: Movement Relieved by: Rest Associated Symptoms Associated Symptoms: Negative for Parasthesias, Weakness, Loss of function or Inability to ambulate Narrative Narrative: Patient is a 33-year-old vrzwr-zttf-ldqfjkvd male who presents with laceration that occurred at work to the dorsal surface of his right ring finger. This over the PIP joint. He denies paresthesia, anesthesia motors. He was seen at [facility] and sent to the emergency room since there is no physician until 1 PM. He is on no antithrombotic or anticoagulant. He is on blood pressure medication. Tetanus Immunization: Unknown Prior similar symptoms: No Recent Illness/Hospitalizat ion: No [facility] Medical History (Updated 07/06/24 @ 10:[address] Ivan Hauser MD) Epididymitis Encounter for sterilization Home Medications ???Medication ???Instructions ???Recorded ???Last Taken ???Type quinapril 5 mg tablet 5 mg PO QHS blood pressure 08/17/20 08/16/20 History sulfamethoxazole 800 1 tab PO BID #14 tabs 08/28/21 Unknown Rx mg-trimethoprim 160 mg tablet (Bactrim DS) Allergy/AdvReac Type Severity Reaction Status Date / Time No Known Allergies Allergy Verified 07/06/24 09:19 Family History Mother Diabetes Hypertension Father Hypertension Surgical History S/P appendectomy S/P vasectomy History of tonsillectomy Social History Smoking Status: Former smoker alcohol intake: never ROS ROS ED Musculoskeletal Musculoskeletal: Reports other Details: Laceration dorsal surface right ring finger over the PIP joint Neurologic Neurologic: Denies paresthesias or weakness Hematologic/Lymphati c Hematologic/Lymphati c: Denies easy bleeding or easy bruising EXAM Physical Exam Const Vital Signs: 07/06/24 09:17 Temperature 96.7 F L Temperature Source Temporal Pulse Rate 74 Respiratory Rate 16 Blood Pressure 131/93 H Blood Pressure Mean 105 Pulse Ox 94 Oxygen Delivery Method Room Air Positive well nourished and well developed General Appearance ED: well developed and NAD HEENT HEENT Narrative: Head is normocephalic. atraumatic Eyes PERRL and EOMs intact bilaterally Resp normal respiratory effort Cardio regular rhythm Rate: regular rate Extremity full ROM; Negative for normal to inspection Extremity Narrative: The extensor commonness tendon is functionally intact. The laceration does not appear to penetrate the joint capsule. Will evaluate more closely after patient has been anesthetized. Sensation is normal. Neuro oriented x3 and CN's II-XII intact bilaterally Neuro Narrative: Median, radial and ulnar function intact. Capillary refill is normal. Psych mental status grossly normal and thought process normal Skin Skin Narrative: Curvilinear laceration over the PIP joint dorsal surface right ring finger PROC Procedures Other Procedures Procedure(s): Patient was prepped draped sterile manner. The wound was incised with 1% lidocaine. There is also a linear laceration noted that was 6 mm in length. The wounds were irrigated with 100 cc of normal saline. Using 5-0 Ethilon a total of 3 stitches placed. 2 per the curvilinear laceration 1 for the linear. 1 was placed in the linear because every time the patient flex his finger it with open the wound and would begin to bleed. Patient tolerated procedure. MDM MDM MDM Narrative Medical decision making narrative: Wound that gapes when he flexes his fingers. Will anesthetize and suture. Please see procedure note in my opinion there is no indication for imaging. Discharge Plan Triage Chief Complaint: Laceration ED Provider: Ivan Hauser Dx/Rx/DC Orders Clinical Impression: Laceration of right ring finger, Hypertension Instructions: ED Laceration, Hand: All Closures Prescriptions: No Action sulfamethoxazole-tri methoprim [Bactrim DS] 800-160 mg tablet 1 tab PO BID Qty: 14 0RF quinapril 5 MG tablet (more content not included)... Normal [facility] CBC-Complete Blood Cnt No Di ffon 06-23-2024 Erythrocyte distribution width (RBC) [Ratio] 12.0 % Normal 11.6-14.6 [facility] Comment on above: Order Comment: Order Date: 06/20/24 Order Info: [id number] - CBC Performed By: #### L 100.0500, L501.9520, L500.4050, L502.0250 #### [facility] [address] [place] [place], [address] (362) Hematocrit (Bld) [Volume fraction] 42.2 % Normal 40-54 [facility] Comment on above: Order Comment: Order Date: 06/20/24 Order Info: [id number] - CBC Performed By: #### L 100.0500, L501.9520, L500.4050, L502.0250 #### [facility] [address] [place], [address] Hemoglobin (Bld) [Mass/Vol] 14.7 g/dL Normal 13.0-16.5 [facility] Comment on above: Order Comment: Order Date: 06/20/24 Order Info: [id number] - CBC Performed By: #### L 100.0500, L501.9520, L500.4050, L502.0250 #### [facility] [address] [place], [address] MCH (RBC) [Entitic mass] 29.4 pg Normal 27.0-32.0 [facility] Comment on above: Order Comment: Order Date: 06/20/24 Order Info: [id number] - CBC Performed By: #### L 100.0500, L501.9520, L500.4050, L502.0250 #### [facility] [address] [place], [address] MCHC (RBC) [Mass/Vol] 34.8 g/dL Normal 32-36 [facility] Comment on above: Order Comment: Order Date: 06/20/24 Order Info: [id number] - CBC Performed By: #### L 100.0500, L501.9520, L500.4050, L502.0250 #### [facility] [address] [place], [address] MCV (RBC) [Entitic vol] 84.4 fL Normal 80-94 [facility] Comment on above: Order Comment: Order Date: 06/20/24 Order Info: [id number] - CBC Performed By: #### L 100.0500, L501.9520, L500.4050, L502.0250 #### [facility] [address] [place], [address] Platelet mean volume (Bld) [Entitic vol] 9.3 fL Normal 6.2-12.0 [facility] Comment on above: Order Comment: Order Date: 06/20/24 Order Info: [id number] - CBC Performed By: #### L 100.0500, L501.9520, L500.4050, L502.0250 #### [facility] [address] [place], [address] Platelets (Bld) [#/Vol] 261 10*3/uL Normal 150-450 [facility] Comment on above: Order Comment: Order Date: 06/20/24 Order Info: [id number] - CBC Performed By: #### L 100.0500, L501.9520, L500.4050, L502.0250 #### [facility] [address] [place], [address] RBC (Bld) [#/Vol] 5.00 10*6/uL Normal 4.6-6.2 [facility] Comment on above: Order Comment: Order Date: 06/20/24 Order Info: [id number] - CBC Performed By: #### L 100.0500, L501.9520, L500.4050, L502.0250 #### [facility] [address] [place], [address] RDW SD 36.1 fl Normal 35.1-43.9 [facility] Comment on above: Order Comment: Order Date: 06/20/24 Order Info: [id number] - CBC Performed By: #### L 100.0500, L501.9520, L500.4050, L502.0250 #### [facility] [address] [place], [address] WBC (Bld) [#/Vol] 9.7 10*3/uL Normal 4.4-11.0 [facility] Comment on above: Order Comment: Order Date: 06/20/24 Order Info: [id number] - CBC Performed By: #### L 100.0500, L501.9520, L500.4050, L502.0250 #### [facility] [address] [place], [address] Comprehensive Metabolic Prof ilon 06-23-2024 Albumin [Mass/Vol] 4.0 g/dL Normal 3.2-5.0 [facility] Comment on above: Order Comment: Order Date: 06/20/24 Order Info: 785-1 - CMP Order Info: [id number] - LIPID Order Info: [id number] - TSH Performed By: #### L 100.0500, L501.9520, L500.4050, L502.0250 #### [facility] [address] [place], [address] Albumin/Globulin [Mass ratio] 1.2 {ratio} Normal 0.9-2.4 [facility] Comment on above: Order Comment: Order Date: 06/20/24 Order Info: [id number] - CMP Order Info: [id number] - LIPID Order Info: 3 - TSH Performed By: #### L 100.0500, L501.9520, L500.4050, L502.0250 #### [facility] [address] [place], [address] ALK P 76 U/L Normal 45-117 [facility] Comment on above: Order Comment: Order Date: 06/20/24 Order Info: [id number]- - CMP Order Info: [id number] - LIPID Order Info: [id number] - TSH Performed By: #### L 100.0500, L501.9520, L500.4050, L502.0250 #### [facility] [address] [place], [address] ALT [Catalytic activity/Vol] 43 U/L Normal 16-61 [facility] Comment on above: Order Comment: Order Date: 06/20/24 Order Info: [id number] - CMP Order Info: [id number] - LIPID Order Info: 3 - TSH Performed By: #### L 100.0500, L501.9520, L500.4050, L502.0250 #### [facility] [address] [place], [address] AST [Catalytic activity/Vol] 20 U/L Normal 15-37 [facility] Comment on above: Order Comment: Order Date: 06/20/24 Order Info: [id number] - CMP Order Info: - LIPID Order Info: [id number] - TSH Performed By: #### L 100.0500, L501.9520, L500.4050, L502.0250 #### [facility] [address] [place], [address] Bilirubin [Mass/Vol] 0.50 mg/dL Normal 0.20-1.00 [facility] Comment on above: Order Comment: Order Date: 06/20/24 Order Info: 785-10 - CMP Order Info: - LIPID Order Info: [id number] - TSH Result Comment: For patients on eltrombopag therapy, use of Dimension [place] TBIL is not recommended. Performed By: #### L 100.0500, L501.9520, L500.4050, L502.0250 #### [facility] [address] [place], [address] BUN/CRE 19.3 RATIO Normal 10-20 [facility] Comment on above: Order Comment: Order Date: 06/20/24 Order Info: [id number] - CMP Order Info: - LIPID Order Info: [id number] - TSH Performed By: #### L 100.0500, L501.9520, L500.4050, L502.0250 #### [facility] [address] [place], [address] CA,Total 9.2 mg/dL Normal 8.5-10.1 [facility] Comment on above: Order Comment: Order Date: 06/20/24 Order Info: 07 - CMP Order Info: - LIPID Order Info: [id number] - TSH Performed By: #### L 100.0500, L501.9520, L500.4050, L502.0250 #### [facility] [address] [place], [address] Chloride [Moles/Vol] 107 mmol/L Normal 98-107 [facility] Comment on above: Order Comment: Order Date: 06/20/24 Order Info: [id number] - CMP Order Info: - LIPID Order Info: [id number] - TSH Performed By: #### L 100.0500, L501.9520, L500.4050, L502.0250 #### [facility] [address] [place], [address] CO2 [Moles/Vol] 23.0 mmol/L Normal 21.0-32.0 [facility] Comment on above: Order Comment: Order Date: 06/20/24 Order Info: [id number] - CMP Order Info: - LIPID Order Info: [id number] - TSH Performed By: #### L 100.0500, L501.9520, L500.4050, L502.0250 #### [facility] [address] [place], [address] Creatinine [Mass/Vol] 0.98 mg/dL Normal 0.70-1.30 [facility] Comment on above: Order Comment: Order Date: 06/20/24 Order Info: 785-10 - CMP Order Info: - LIPID Order Info: [id number] - TSH Result Comment: The validity of the calculated GFR GFRAA in patients over 70 years has not been determined. Clinical correlation is essential. Performed By: #### L 100.0500, L501.9520, L500.4050, L502.0250 #### [facility] [address] [place], [address] EST GFR - AA 112 mL/min Normal >60 [facility] Comment on above: Order Comment: Order Date: 06/20/24 Order Info: 785-10 - CMP Order Info: - LIPID Order Info: [id number] - TSH Result Comment: Afri can Russian GFR Calc Performed By: #### L 100.0500, L501.9520, L500.4050, L502.0250 #### [facility] [address] [place], [address] GAP 7 Normal 5-15 [facility] Comment on above: Order Comment: Order Date: 06/20/24 Order Info: 785- - CMP Order Info: - LIPID Order Info: [id number] - TSH Performed By: #### L 100.0500, L501.9520, L500.4050, L502.0250 #### [facility] [address] [place], [address] GFR/1.73 sq M.predicted among non-blacks MDRD (S/P/Bld) [Vol rate/Area] 93 mL/min/{1.73_m2} Normal >60 [facility] Comment on above: Order Comment: Order Date: 06/20/24 Order Info: [id number] - CMP Order Info: - LIPID Order Info: [id number] - TSH Result Comment: Non- GFR Calc Performed By: #### L 100.0500, L501.9520, L500.4050, L502.0250 #### [facility] [address] [place], [address] Globulin (S) [Mass/Vol] 3.2 g/dL Normal 2.2-4.2 [facility] Comment on above: Order Comment: Order Date: 06/20/24 Order Info: [id number] - CMP Order Info: - LIPID Order Info: [id number] - TSH Performed By: #### L 100.0500, L501.9520, L500.4050, L502.0250 #### [facility] [address] [place], [address] Glucose [Mass/Vol] 94 mg/dL Normal 74-106 [facility] Comment on above: Order Comment: Order Date: 06/20/24 Order Info: 07 - CMP Order Info: - LIPID Order Info: 3 - TSH Performed By: #### L 100.0500, L501.9520, L500.4050, L502.0250 #### [facility] [address] [place], [address] Potassium [Moles/Vol] 3.8 mmol/L Normal 3.5-5.1 [facility] Comment on above: Order Comment: Order Date: 06/20/24 Order Info: 785-10 - CMP Order Info: [id number] - LIPID Order Info: 3015-12 - TSH Performed By: #### L 100.0500, L501.9520, L500.4050, L502.0250 #### [facility] [address] [place], [address] Sodium [Moles/Vol] 137 mmol/L Normal 136-145 [facility] Comment on above: Order Comment: Order Date: 06/20/24 Order Info: 785-10 - CMP Order Info: - LIPID Order Info: [id number] - TSH Performed By: #### L 100.0500, L501.9520, L500.4050, L502.0250 #### [facility] [address] [place], [place], [address] T PROT 7.2 g/dL Normal 6.4-8.2 [facility] Comment on above: Order Comment: Order Date: 06/20/24 Order Info: 785-10 - CMP Order Info: - LIPID Order Info: [id number] - TSH Performed By: #### L 100.0500, L501.9520, L500.4050, L502.0250 #### [facility] [address] [place], [address] Urea nitrogen [Mass/Vol] 19 mg/dL High 7-18 [facility] Comment on above: Order Comment: Order Date: 06/20/24 Order Info: 785-10 - CMP Order Info: - LIPID Order Info: 3015-12 - TSH Performed By: #### L 100.0500, L501.9520, L500.4050, L502.0250 #### [facility] [address] [place], [address] Lipid Profileon 06-23-2024 Cholesterol [Mass/Vol] 204 mg/dL High 200 [facility] Comment on above: Order Comment: Order Date: 06/20/24 Order Info: 785-10 - CMP Order Info: - LIPID Order Info: 3015-12 - TSH Result Comment: <200 mg/dL Desirable 200-240 mg/dL Borderline >240 mg/dL High Risk Performed By: #### L 500.4100 #### [facility] [address] [place], [address] Cholesterol in HDL [Mass/Vol] 52 mg/dL Normal [facility] Comment on above: Order Comment: Order Date: 06/20/24 Order Info: 785-10 - CMP Order Info: - LIPID Order Info: [id number] - TSH Result Comment: The drugs N-Acetylcysteine and Metamizole may falsely depress this assay. Reference Range HDL <40 mg/dL Low HDL Cholesterol HDL >or= 60 mg/dL High HDL Cholesterol Performed By: #### L 500.4100 #### [facility] [address] [place], [address] Cholesterol in LDL [Mass/Vol] 111 mg/dL Normal 0-130 [facility] Comment on above: Order Comment: Order Date: 06/20/24 Order Info: 785-10 - CMP Order Info: - LIPID Order Info: [id number] - TSH Performed By: #### L 500.4100 #### [facility] [address] [place], [address] Cholesterol in VLDL [Mass/Vol] 41 mg/dL High 5-40 [facility] Comment on above: Order Comment: Order Date: 06/20/24 Order Info: 785-10 - CMP Order Info: - LIPID Order Info: [id number] - TSH Performed By: #### L 500.4100 #### [facility] [address] [place], [address] Triglyceride [Mass/Vol] 205 mg/dL High [facility] Comment on above: Order Comment: Order Date: 06/20/24 Order Info: 0786-1 - CMP Order Info: [id number] - LIPID Order Info: 3016-3 - TSH Result Comment: The drugs N-Acetylcysteine and Metamizole may falsely depress this assay. Serum Triglycerides Reference Interval Normal <150 mg/dL Borderline high 150 - 199 mg/dL High 200 - 499 mg/dL Very High > or = 500 mg/dL Performed By: #### L 500.4100 #### [facility] [address] [place], [address] Microalb:Creat Ratio,Random URon 06-23-2024 Creatinine [Mass/Vol] 152.00 mg/dL Normal NO RANGE EST . [facility] Comment on above: Order Comment: Order Date: 06/20/24 Order Info: 0779-1 - MIACRE Performed By: #### L 100.0500, L501.9520, L500.4050, L502.0250 #### [facility] [address] [place], [address] MALB:CRE 7.5 mg/g CRE Normal <30 mg/g CRE [facility] Comment on above: Order Comment: Order Date: 06/20/24 Order Info: 0779-1 - MIACRE Performed By: #### L 100.0500, L501.9520, L500.4050, L502.0250 #### [facility] [address] [place], [address] MICROALBUMIN,UR 11.4 mg/L Normal NO RANGE EST. [facility] Comment on above: Order Comment: Order Date: 06/20/24 Order Info: 0779-1 - MIACRE Performed By: #### L 100.0500, L501.9520, L500.4050, L502.0250 #### [facility] [address] [place], [address] Thyroid Stim Hormone (TSH)on 06-23-2024 TSH 1.270 uIU/mL Normal 0.358-3.740 [facility] Comment on above: Order Comment: Order Date: 06/20/24 Order Info: 0786-1 - CMP Order Info: [id number] - LIPID Order Info: [id number] - TSH Performed By: #### L 100.0500, L501.9520, L500.4050, L502.0250 #### [facility] [address] [place] [place], [address] CNOVon 04-15-2024 CNOV Office Visit (UCWSTR) GINA GILMAN ([id number]) 1990 M Date Time Provider Department 04/15/24 1:15 PM RENATA SHERMAN [facility] During your visit today, we recorded the following information about you: Temperature Pulse Respiration Blood pressure 98.1 degrees 73/minute 16/minute 146/74 Weight 140 kg Renata Sherman, LULU 04/15/2024 1:14 PM Signed ASSESSMENT/PLAN: 1. Bacterial sinusitis - ICD9: 473.9, 041.9, ICD10: J32.9, B96.89 (primary diagnosis) - Will begin treatment with as per antibiotic as written, see orders - Supportive care with plenty of fluids, rest, and analgesia prn. - AMOXICILLIN 875 MG-POTASSIUM CLAVULANATE 125 MG TABLET - FLUTICASONE PROPIONATE 50 MCG/ACTUATION NASAL SPRAY,SUSPENSION 2. Eye drainage - ICD9: 379.93, ICD10: H57.89 - low suspicion for pinkeye, likely due to sinusitis and should respond to antibiotic treatment. 3. Sinus pressure - ICD9: 478.19, ICD10: J34.89 - flonase nasal spray as prescribed. - Follow-up with your PCP in 3-5 days if symptoms have not improved or sooner if symptoms worsen - Discussed red flags and need for immediate medical evaluation if any occur. - Discussed supportive care treatment with fluids, rest and analgesia. - Discussed expected course of illness Renata Sherman APRN.MURALI Adult Sinusitis Patient Education What is Sinusitis? Sinusitis [rwsa-mso-esqk-tis] is inflammation of the sinuses or swelling of the lining of the sinus cavity or nose. During an infection the sinuses become blocked with fluid causing swelling of the lining of the sinuses. Symptoms: (viral and bacterial infections) Stuffy nose Runny nose Postnasal drip Fever Toothache Headache Tiredness Cough Sore throat Face and head pressure and or pain Common causes: 98% of sinus infections are viral caused by viruses. Risk Factors of Sinusitis Include: Allergies, air pollution, indoor humidity and outdoor temperature changes, andstructural changes in the nose may contribute to sinus pain, pressure and congestion. When to get help? Temperature greater than 100.4 ?F Symptoms lasting more than 10 days or worsening symptoms greater than 7-10 days. If you do not improve or worsen after a course of antibiotics, you should be re-examined. Diagnosis and Treatment: Your healthcare provider will ask a number of questions about your symptoms and how long they have occurred. If symptoms of sinusitis persist greater than 10 days, it is possible you have a bacterial sinus infection and an antibiotic is prescribed. If it is viral, antibiotics will not help. You may be instructed to take zyky-uxa-zocjqki medications for symptoms. including fever reducers acetaminophen or ibuprofen, nasal saline spray, cough and cold preparations and decongestants as prescribed by the physician, nurse practitioner or physician administrative assistant data entry. Self-Care and Prevention: Rest Fluids for hydration Good hand washing Humidifier Avoid smoking and exposure to second hand smoke Avoid sick contacts Renata Sherman APRN.CENTRAL SUPPLY TECHNICIAN SUPERVISOR 04/15/2024 1:18 PM Signed Subjective Cough Associated symptoms include headaches and sore throat. Pertinent negatives include no chest pain, no chills, no ear pain, no myalgias, no shortness of breath and no eye redness. Gina Gilman is a 33 year old male who presents with one month of sinus congestion, pressure, headache, sinus drainage. States he was eating Chipotle a month ago and sneezed, "pretty sure I got a piece of rice stuck in my nose". He has been using Netti Pot at home. No fever. Last night he started having discharge from his left eye. Denies eye redness or pain or loss of vision. Review of Systems Constitutional: Negative for chills, fever and malaise/fatigue. HENT: Positive for congestion, sinus pain and sore throat. Negative for ear pain. Eyes: Positive for discharge. Negative for photophobia, pain and redness. Respiratory: Negative for cough, sputum production and shortness of breath. Cardiovascular: Negative for chest pain. Gastrointestinal: Negative for diarrhea, nausea and vomiting. Musculoskeletal: Negative for myalgias. Neurological: Positive for headaches. BP 146/74 Pulse 73 Temp 36.7 ?C (98.1 ?F) Resp 16 Wt (!) 140 kg (308 lb 10.3 oz) SpO2 97% PAST MEDICAL HISTORY Diagnosis Date NEGATIVE MEDICAL HISTORY PAST SURGICAL HISTORY Procedure Laterality Date ADENOIDECTOMY PRIMARY Adenoidectomy TONSILLECTOMY PRIMARY/SECONDARY Tonsillectomy ALLERGIES Patient has no known allergies. MEDICATIONS escitalopram oxalate (LEXAPRO) 5 mg tablet Take 1 tablet by mouth every afternoon. ramipril (ALTACE) 5 mg capsule Take 1 capsule by mouth every afternoon. amoxicillin-clavulan ate potassium (AUGMENTIN) 875-125 mg per tablet Take 1 tablet by mouth two times a day for 7 days. fluticasone (FLON (more content not included)... Normal [facility] [place] Basophil percentageOrdered B y: Micah Mathis on 04-30-2023 Bilirubin [Mass/Vol] 0.30 mg/dL 0.20-1.00 [facility] Comment on above: For patients on eltr ombopag therapy, use of Dimension [place] TBIL is not recommended. Chloride [Moles/Vol] 107 mmol/L 98-107 [facility] Glucose [Mass/Vol] 98 mg/dL 74-106 [facility] Potassium [Moles/Vol] 3.7 mmol/L 3.5-5.1 [facility] Protein [Mass/Vol] 7.5 g/dL 6.4-8.2 [facility] Sodium [Moles/Vol] 137 mmol/L 136-145 [facility] Laboratory - Chemistry and C hemistry - challengeOrdered By: Micah Mathis on 04-30-2023 ALP [Catalytic activity/Vol] 89 U/L 45-117 [facility] ALT [Catalytic activity/Vol] 29 U/L 16-61 [facility] CO2 [Moles/Vol] 22.0 mmol/L 21.0-32.0 [facility] Globulin (S) [Mass/Vol] 3.6 g/dL 2.2-4.2 [facility] Urea nitrogen/Creatinine [Mass ratio] 14.6 mg/mg 10-20 [facility] No Panel InformationOrdered By: Micah Mathis on 04-30-2023 Estimated GFR (MDRD) Amer 107 mL/min >60 [facility] Comment on above: GFR Calc Estimated GFR (MDRD) Non-Af Amer 89 mL/min >60 [facility] Comment on above: Non- GFR Calc Thyroid Stimulating Hormone (TSH) 2.05 uIU/mL 0.358-3.74 [facility] Urine Microalbumin/Creatinine Ratio 6.7 mg/g CRE <30 [facility] Serum or plasma albumin ev urement (mass/volume)Ordered By: Micah Mathis on 04-30-2023 Albumin [Mass/Vol] 3.9 g/dL 3.2-5.0 [facility] Serum or plasma albumin/glob ulin mass ratioOrdered By: Micah Mathis on 04-30-2023 Albumin/Globulin [Mass ratio] 1.1 {ratio} 0.9-2.4 [facility] Serum or plasma calcium ev urement (mass/volume)Ordered By: Micah Mathis on 04-30-2023 Calcium [Mass/Vol] 9.1 mg/dL 8.5-10.1 [facility] Serum or plasma creatinine m easurement (mass/volume)Ordered By: Micah Mathis on 04-30-2023 Creatinine [Mass/Vol] 1.03 mg/dL 0.70-1.30 [facility] Comment on above: The validity of the calculated GFR & GFRAA in patients over 70 years has not been determined. Clinical correlation is essential. Serum or plasma urea nitroge n measurement (mass/volume)Ordered By: Micah Mathis on 04-30-2023 Urea nitrogen [Mass/Vol] 15 mg/dL 7-18 [facility] Thin prep Papanicolaou smear with manual screeningOrdered By: Micah Mathis on 04-30-2023 Thin prep Papanicolaou smear with manual screening 14 U/L 15-37 [facility] Thin prep Papanicolaou smear with manual screening 8 5-15 [facility] Thin prep Papanicolaou smear with manual screening 22.5 mg/L NO RANGE EST. [facility] Urine creatinine measurement (mass/volume)Ordered By: Micah Mathis on 04-30-2023 Creatinine (U) [Mass/Vol] 337.00 mg/dL NO RANGE EST. [facility] Basophil percentageon 2021 Bilirubin [Mass/Vol] 0.50 mg/dL 0.20-1.00 [facility] Work Phone: Comment on above: For patients on eltr ombopag therapy, use of Dimension [place] TBIL is not recommended. Chloride [Moles/Vol] 108 mmol/L 98-107 [facility] Work Phone: Glucose [Mass/Vol] 80 mg/dL 74-106 [facility] Work Phone: Potassium [Moles/Vol] 4.2 mmol/L 3.5-5.1 [facility] Work Phone: Protein [Mass/Vol] 7.2 g/dL 6.4-8.2 [facility] Work Phone: [phone] Sodium [Moles/Vol] 140 mmol/L 136-145 [facility] Work Phone: [phone] Laboratory - Chemistry and C hemistry - challengeon 07-31-2022 ALP [Catalytic activity/Vol] 79 U/L 45-117 [facility] Work Phone: [phone] ALT [Catalytic activity/Vol] 38 U/L 16-61 [facility] Work Phone: CO2 [Moles/Vol] 27.0 mmol/L 21.0-32.0 [facility] Work Phone: Globulin (S) [Mass/Vol] 3.2 g/dL 2.2-4.2 [facility] Work Phone: Urea nitrogen/Creatinine [Mass ratio] 17.4 mg/mg 10-20 [facility] Work Phone: No Panel Informationon 07-31 Estimated GFR (MDRD) Amer 90 mL/min >60 [facility] Work Phone: Comment on above: GFR Calc Estimated GFR (MDRD) Non-Af Amer 74 mL/min >60 [facility] Work Phone: Comment on above: Non- GFR Calc Serum or plasma albumin ev urement (mass/volume)on 07-31-2022 Albumin [Mass/Vol] 4.0 g/dL 3.2-5.0 [facility] Work Phone: Serum or plasma albumin/glob ulin mass ratioon 07-31-2022 Albumin/Globulin [Mass ratio] 1.2 {ratio} 0.9-2.4 [facility] Work Phone: Serum or plasma calcium ev urement (mass/volume)on 07-31-2022 Calcium [Mass/Vol] 9.2 mg/dL 8.5-10.1 [facility] Work Phone: Serum or plasma creatinine m easurement (mass/volume)on 07-31-2022 Creatinine [Mass/Vol] 1.21 mg/dL 0.70-1.30 [facility] Work Phone: Comment on above: The validity of the calculated GFR & GFRAA in patients over 70 years has not been determined. Clinical correlation is essential. Serum or plasma urea nitroge n measurement (mass/volume)on 07-31-2022 Urea nitrogen [Mass/Vol] 21 mg/dL 7-18 [facility] Work Phone: Thin prep Papanicolaou smear with manual screeningon 07-31-2022 Thin prep Papanicolaou smear with manual screening 20 U/L 15-37 [facility] Work Phone: Thin prep Papanicolaou smear with manual screening 5 5-15 [facility] Work Phone: Laboratory - Microbiology an d Antimicrobial susceptibilityon 06-09-2022 SARS-CoV-2 (COVID-19) RNA THONY+probe Ql (Unsp spec) Not detected [facility] Work Phone: No Panel Informationon 06-09 POC Nasal Swab Influenza A,B Not detected [facility] Work Phone: POC Nasal Swab RSV Not detected [facility] Work Phone: Vital Signs Date Time Vital Sign Value Performing Clinician Facility 02-06-2025 09:04-0400 Body temperature 97 [degF] Angie Swank MRI SUPERVISOR.CENTRAL SUPPLY TECHNICIAN SUPERVISOR Work Phone: [facility] 02-06-2025 09:04-0400 Body weight 133.7 kg Angie Swank MRI SUPERVISOR.CENTRAL SUPPLY TECHNICIAN SUPERVISOR Work Phone: [facility] 02-06-2025 09:04-0400 Diastolic blood pressure 78 mm[Hg] Angie Swank MRI SUPERVISOR.CENTRAL SUPPLY TECHNICIAN SUPERVISOR Work Phone: [facility] 02-06-2025 09:04-0400 Heart rate 75 /min Angie Swank MRI SUPERVISOR.CENTRAL SUPPLY TECHNICIAN SUPERVISOR Work Phone: [facility] 02-06-2025 09:04-0400 Respiratory rate 16 /min Angie Swank MRI SUPERVISOR.CENTRAL SUPPLY TECHNICIAN SUPERVISOR Work Phone: [facility] 02-06-2025 09:04-0400 SaO2% (BldA) [Mass fraction] 96 % Angie Swank MRI SUPERVISOR.CENTRAL SUPPLY TECHNICIAN SUPERVISOR Work Phone: [facility] 02-06-2025 09:04-0400 Systolic blood pressure 122 mm[Hg] Angie Swank MRI SUPERVISOR.CENTRAL SUPPLY TECHNICIAN SUPERVISOR Work Phone: [facility] 04-15-2024 12:56-0400 Body temperature 98.1 [degF] Renata Praisler-Wood MRI SUPERVISOR.CENTRAL SUPPLY TECHNICIAN SUPERVISOR Work Phone: [facility] 04-15-2024 12:56-0400 Body weight 140 kg Renata Praisler-Wood MRI SUPERVISOR.CENTRAL SUPPLY TECHNICIAN SUPERVISOR Work Phone: [facility] 04-15-2024 12:56-0400 Diastolic blood pressure 74 mm[Hg] Renata Praisler-Wood MRI SUPERVISOR.CENTRAL SUPPLY TECHNICIAN SUPERVISOR Work Phone: [facility] 04-15-2024 12:56-0400 Heart rate 73 /min Renata Praisler-Wood MRI SUPERVISOR.CENTRAL SUPPLY TECHNICIAN SUPERVISOR Work Phone: [facility] 04-15-2024 12:56-0400 Respiratory rate 16 /min Renata Praisler-Wood MRI SUPERVISOR.CENTRAL SUPPLY TECHNICIAN SUPERVISOR Work Phone: [facility] 04-15-2024 12:56-0400 SaO2% (BldA) [Mass fraction] 97 % Renata Praisler-Wood MRI SUPERVISOR.CENTRAL SUPPLY TECHNICIAN SUPERVISOR Work Phone: [facility] 04-15-2024 12:56-0400 Systolic blood pressure 146 mm[Hg] Renata Praisler-Wood MRI SUPERVISOR.CENTRAL SUPPLY TECHNICIAN SUPERVISOR Work Phone: [facility] 03-20-2023 10:26-0400 Diastolic Blood Pressure Non-Invasive 62 1 GUSTAVO SUPPAN DPM [facility] 03-20-2023 10:26-0400 Heart rate 65 /min GUSTAVO SUPPAN DPM [facility] 03-20-2023 10:26-0400 Respiratory rate 15 /min GUSTAVO SUPPAN DPM [facility] 03-20-2023 10:26-0400 Systolic Blood Pressure Non-Invasive 108 1 GUSTAVO SUPPAN DPM [facility] 03-20-2023 10:15-0400 Diastolic Blood Pressure Non-Invasive 60 1 GUSTAVO SUPPAN DPM [facility] 03-20-2023 10:15-0400 Heart rate 70 /min GUSTAVO SUPPAN DPM [facility] 03-20-2023 10:15-0400 Respiratory rate 14 /min GUSTAVO SUPPAN DPM [facility] 03-20-2023 10:15-0400 Systolic Blood Pressure Non-Invasive 104 1 GUSTAVO SUPPAN DPM [facility] 03-20-2023 10:00-0400 Diastolic Blood Pressure Non-Invasive 58 1 GUSTAVO SUPPAN DPM [facility] 03-20-2023 10:00-0400 Heart rate 85 /min GUSTAVO SUPPAN DPM [facility] 03-20-2023 09:23-0400 Body temperature 96.8 [degF] GUSTAVO SUPPAN DPM [facility] 03-20-2023 09:15-0400 Respiratory Rate - Anes 20 br/min GUSTAVO SUPPAN DPM [facility] 03-20-2023 09:10-0400 Respiratory Rate - Anes 19 br/min GUSTAVO SUPPAN DPM [facility] 03-20-2023 09:05-0400 Respiratory Rate - Anes 18 br/min GUSTAVO SUPPAN DPM [facility] 03-20-2023 07:15-0400 Body height 185.4 cm GUSTAVO SUPPAN DPM [facility] 03-20-2023 07:15-0400 Body temperature 97.34 [degF] GUSTAVO SUPPAN DPM [facility] 03-20-2023 07:15-0400 Body weight 131.8 kg GUSTAVO SUPPAN DPM [facility] 03-20-2023 07:15-0400 Heart rate 68 /min GUSTAVO SUPPAN DPM [facility] 03-04-2023 14:00-0400 Blood Pressure Cuff Size GUSTAVO SUPPAN DPM [facility] 03-04-2023 14:00-0400 Blood Pressure Location GUSTAVO SUPPAN DPM [facility] 03-04-2023 14:00-0400 Blood Pressure Method GUSTAVO SUPPAN DPM [facility] 03-04-2023 14:00-0400 Body height 185.4 cm GUSTAVO SUPPAN DPM [facility] 03-04-2023 14:00-0400 Body weight 135.4 kg GUSTAVO SUPPAN DPM [facility] 03-04-2023 14:00-0400 Body weight 39.39 kg/m2 GUSTAVO SUPPAN DPM [facility] 03-04-2023 14:00-0400 Diastolic Blood Pressure Non-Invasive 76 1 GUSTAVO SUPPAN DPM [facility] 03-04-2023 14:00-0400 Heart rate 75 /min GUSTAVO SUPPAN DPM [facility] 03-04-2023 14:00-0400 Systolic Blood Pressure Non-Invasive 126 1 GUSTAVO SUPPAN DPM [facility] 10-07-2022 19:30-0500 Body temperature 99.39 [degF] Elyse Denbow PA-C Work Phone: [facility] 10-07-2022 19:30-0500 Body weight 139.71 kg Elyse Denbow PA-C Work Phone: [facility] 10-07-2022 19:30-0500 Diastolic blood pressure 86 mm[Hg] Elyse Denbow PA-C Work Phone: [facility] 10-07-2022 19:30-0500 Heart rate 102 /min Elyse Denbow PA-C Work Phone: [facility] 10-07-2022 19:30-0500 Respiratory rate 16 /min Elyse Denbow PA-C Work Phone: [facility] 10-07-2022 19:30-0500 SaO2% (BldA) [Mass fraction] 96 % Elyse Denbow PA-C Work Phone: [facility] 10-07-2022 19:30-0500 Systolic blood pressure 136 mm[Hg] Elyse Denbow PA-C Work Phone: [facility] Encounters Encounter Date Encounter Type Care Provider Facility Start: 03-23-2025 End: 03-23-[address] Micah Mathis MD Work Phone: [facility] Work Phone: Start: 03-23-2025 End: 03-23-[address] Micah Mathis MD [facility] Work Phone: Start: 03-23-2025 End: 03-23-2025 ambulatory Micah Mathis Facility:[facility] Start: 02-07-2025 End: 02-07-2025 Follow-up encounter Angie Arce APRN.CNP Work Phone: [facility] Start: 02-06-2025 End: 02-06-2025 Telephone encounter Angie Arce APRN.CNP Work Phone: [facility] Comment on above: Results Start: 02-06-2025 End: 02-06-2025 ambulatory MICAH Viraj MATHIS Facility:[facility] Start: 02-06-2025 End: 02-06-2025 Patient encounter procedure Angie Arce APRN.CENTRAL SUPPLY TECHNICIAN SUPERVISOR Work Phone: [facility] Comment on above: Viral URI with cough (Primary Dx) Start: 07-06-2024 End: 07-06-2024 Emergency department patient visit Ivan Hauser Facility:[facility] Start: 06-23-2024 End: 06-23-2024 ambulatory Micah Mathis Facility:[facility] Start: 04-15-2024 End: 04-15-2024 ambulatory MICAH Viraj MATHIS Facility:[facility] Start: 04-15-2024 End: 04-15-2024 Patient encounter procedure Renata Sherman APRN.CENTRAL SUPPLY TECHNICIAN SUPERVISOR Work Phone: [facility] Comment on above: Bacterial sinusitis (Primary Dx); Eye drainage; Sinus pressure Start: 04-30-2023 End: 04-30-2023 ambulatory [facility] Work Phone: Start: 04-30-2023 End: 04-30-2023 Patient encounter procedure [facility] Start: 03-20-2023 End: 03-20-2023 ambulatory GUSTAVO N LILIANAAN DPM Facility:B Start: 03-20-2023 End: 03-20-2023 SAME DAY STAY GUSTAVO N SUPPAN DPM [facility] Start: 03-04-2023 End: 03-05-2023 ambulatory GUSTAVO N SUPPAN DPM Facility:[facility] Start: 03-04-2023 End: 03-04-2023 Admission to establishment GUSTAVO N SUPPAN DPM [facility] Start: 12-18-2022 End: 12-18-2022 ambulatory [facility] Work Phone: Start: 12-18-2022 End: 12-18-2022 Patient encounter procedure [facility] Start: 10-08-2022 Telephone encounter Denice Webb LULU Work Phone: [facility] Comment on above: Results Start: 10-07-2022 End: 10-07-2022 Patient encounter procedure Elyse Akbar PA-C Work Phone: [facility] Comment on above: Flu-like symptoms (P rimary Dx); SOB (shortness of breath) Start: 07-31-2022 End: 07-31-[address] Micah Mathis Work Phone: [facility] Work Phone: Start: 07-31-2022 End: 07-31-[address] Micah Mathis Work Phone: [facility] Start: 06-09-2022 End: 06-09-[address] Micah Mathis Work Phone: [facility] Procedures Date Procedure Procedure Detail Performing Clinician Start: 12-18-2022 MRI of joint of lowe r extremity Appendectomy GUSTAVO TAVERA M Tonsillectomy GUSTAVO PLATA D PM Vasectomy GUSTAVO PLATA DP M Plan of Treatment Date Care Activity Detail Author Start: 04-30-2033 Urine microalbumin profile DTaP,Tdap,Td Vaccine (2 - Td or Tdap) [facility] Start: 06-26-2024 Covid-19 Vaccine () Covid-19 Vaccine () [facility] Start: 06-26-2024 Influenza vaccination C [facility] Start: 10-26-2023 Behavioral Health Screening Behavioral Health Screening [facility] Start: 06-26-2023 Covid-19 Vaccine () Covid-19 Vaccine () [facility] Start: 10-07-2022 End: 10-21-2022 Influenza virus A and B RNA and SARS-CoV-2 (COVID-19) N gene panel - Respiratory specimen by THONY with probe detection COVID WITH FLUA+B, ROUTINE Microbiology Routine Flu-like symptoms SOB (shortness of breath) Expected: 10/07/2022, Expires: 10/21/2022 [facility] Work Phone: Comment on above: Expected: 10/07/2022 , Expires: 10/21/2022 Start: 06-26-2022 Influenza vaccination INFLUENZA (#1) [facility] Start: 10-26-2021 DEPRESSION ASSESSMENT DEPRESSION ASS ESSMENT [facility] Start: 2009 Urine microalbumin profile DTAP,TDAP,TD (1 - Tdap) [facility] Start: 2008 Anxiety Screening Anxiety Screening [facility] Start: 2008 Depression Screening Depression Scre ening [facility] Start: 2008 HEPATITIS C SCREENING HEPATITIS C [facility] Start: 2008 Hepatitis C screening Hepatitis C [facility] Start: 2008 HIV SCREENING HIV SCREENING [facility] Start: 2008 HIV screening HIV Screening [facility] Start: 09-27-2004 Hepatitis B Vaccine (2 of 3 - 3-dose series) Hepatitis B Vaccine (2 of 3 - 3-dose series) [facility] Start: 03-22-1991 COVID-19 VACCINE (#1) COVID-19 VACCI NE (#1) [facility] Start: 1990 HEPATITIS B (1 of 3 - 3-dose series) HEPATITIS B (1 of 3 - 3-dose series) [facility] COVID & INFLUENZA A/ B & RSV PCR, ROUTINE COVID & INFLUENZA A/B & RSV PCR, ROUTINE Microbiology Routine Viral URI with cough 02/06/2025 11:27 AM EDT [facility] Work Phone: Immunizations Immunization Date Immunization Notes Care Provider Fa cility 04-30-2023 tetanus toxoid, redu kassy diphtheria toxoid, and acellular pertussis vaccine, adsorbed Dr. Mciah Mathis MD Work Phone: [facility] 08-14-[address] Micah Mathis Work Phone: [facility] 08-14-2020 influenza virus vaccine, unspecified formulation Renata Sherman APRN.CNP Work Phone: [facility] Payers Date Payer Category Payer Unknown [id number] 2024 Self-pay [id number] 2018 Private Health Insurance [id number] 2018 Private Health Insurance [id number] 1990 Unknown [id number] 1990 Unknown [id number] Private Health Insurance [employer] [id number] Unknown ANTHEM [id number] Unknown [id number] Unknown [id number] Unknown [id number] Social History Date Type Detail Facility Start: 11-10-2021 End: 11-10-2021 Tobacco smoking status VTIS Unknown if ever smoked [facility] Start: 08-17-2020 None [facility] Start: 08-17-2020 With Family [facility] Start: 08-17-2020 Cigarettes [facility] Start: 1990 Sex Assigned At Male [facility] Start: 10-07-2022 End: 07-06-2024 Tobacco smoking status VTIS Ex-smoker [facility] Work Phone: End: 01-02-2013 History of tobacco use Current smoker [facility] Work Phone: End: 01-02-2013 History of tobacco use Cigarette Smoker [facility] Work Phone: Start: 10-03-2020 End: 10-07-2022 Cigarettes smoked current (pack per day) - Reported 0.5 [facility] Start: 10-07-2022 Tobacco use and exposure Smokeless tobacco non-user [facility] Work Phone: Start: 10-07-2022 End: 02-06-2025 Alcohol intake Current non-drinker of alcohol (finding) [facility] Start: 1990 Sex Assigned At Not on file [facility] Start: 03-04-2023 Tobacco smoking status Never s moked tobacco (finding) [facility] Start: 10-03-2020 End: 04-15-2024 Tobacco use panel [facility] National Score (1-10 0), lower number is lower risk Not on file [facility] Medical Equipment Procedure Code Equipment Code Equipment Origin al Text Equipment Identifier Dates Appendectomy, laparoscopic 45mm Standard Reload FDA Start: 08-17-2020 Appendectomy, laparoscopic 45mm Standard Reload FDA Start: 08-17-2020 Appendectomy, laparoscopic 45mm Standard Reload FDA Start: 08-17-2020 Appendectomy, laparoscopic 45mm Standard Reload FDA Start: 08-17-2020 Functional Status Date Assessment Result Facility 03-20-2023 Functional Status Activity Status ADL Leonor ke [facility] 03-20-2023 Functional Status elevated on pi clarkews, ice on [facility] 03-20-2023 Functional Status Maintained [facility] 03-04-2023 Functional Status Sensory Deficits None A [facility] Mental Status Date Assessment Result Facility 03-20-2023 Mental Status Oriented x 4 [facility] 03-20-2023 Mental Status [facility] Clinical Notes 10-07-2022 to 02-07-2025 Telephone Encounter - Rossy Connors LPN - 02/07/2025 7:54 AM EDTTelephone Encounter - Rossy Connors LPN - 02/07/2025 7:54 AM EDTPatient InstructionsPatient Instructions Note Date & Type Note Facility 02-07-2025 Telephone encounter Note Left message for patient with negative results.Rossy Connors LPN [facility] 02-07-2025 Telephone encounter Note ----- Message from Angie Arce APRN.CENTRAL SUPPLY TECHNICIAN SUPERVISOR sent at 02/07/2025 7:09 AM EDT ----- Please advise patient of negative flu/covid/rsv [facility] 02-07-2025 Miscellaneous Notes Left message for patient with negative results.Rossy Connors LPN ----- Message from Angie Arce APRN.CENTRAL SUPPLY TECHNICIAN SUPERVISOR sent at 02/07/2025 7:09 AM EDT ----- Please advise patient of negative flu/covid/rsv documented in this encounter [facility] 02-06-2025 Telephone encounter Note Pt called in asking for the results of his Covid test. I let him know that were not back, and they they would call him once they cam in. Pt verbalized understanding. [facility] 02-06-2025 Miscellaneous Notes Pt called in asking for the results of his Covid test. I let him know that were not back, and they they would call him once they cam in. Pt verbalized understanding. documented in this encounter [facility] 02-06-2025 Note SARS-COV-2 (AGENT OF COVID-19) RNA: Not detected INFLUENZA A RNA: Not detected INFLUENZA B RNA: Not detected RESPIRATORY SYNCYTIAL VIRUS (RSV) RNA: Not detected [facility] Comment on above: Performed By: #### 9 [id number] #### [facility] CLIA [id number] [address] [place] [address] [place] 02-06-2025 Instructions Angie Arce APRN.CENTRAL SUPPLY TECHNICIAN SUPERVISOR - 02/06/2025 9:39 AM EDT Patient presents with: Cough: Cough, chest congestion, bodyaches and RAE x 1 day I recommend you follow up with your Primary Care Provider (Physician, Nurse Practitioner, or Physician [facility]). YOU SHOULD SEEK MEDICAL ATTENTION IMMEDIATELY AT THE NEAREST EMERGENCY DEPARTMENT IF ANY OF THE FOLLOWING OCCURS Call 911 if you have chest pain, heaviness or discomfort Fever (temperature higher than 100.4 F / 38 C) and it doesn't go away or gets worse after 2-3 days of antibiotics Unusual or increasing pain Lightheadedness Feeling sicker at any time or not getting better as expected Can't catch your breath or have shortness of breath Were seen for eye problems and have eye pain, changes/blurring of vision, or the light hurts your eyes and/or you have a fever Were seen for wound/skin infection issues and your wound/infection has increasing redness/swelling/pain, red streaking towards your heart, or green/yellow drainage Were seen for a headache and have any worsening of headache/dizziness or you develop a stiff neck or any other concerns about your headache Were seen for stomach/abdominal complaints and your diarrhea/vomiting/pain worsens and/or you don't urinate in an 8 hour period of time Develop swelling of your lips/face/tongue/throat or think you are having an allergic reaction to any medications Please read all pharmacy handouts regarding possible medication side effects and/or adverse reactions. Call your Primary Care Provider with any questions or concerns. Follow up with your Primary Care Provider if you require any follow up care. Urgent/Express Care and Walk In Clinics do not provide follow up care. documented in this encounter [facility] 02-06-2025 Note HNO ID: [id number] Author: ANGIE ARCE APRN.CNP Service: ? Author Type: Nurse Practitioner Type: Progress Notes Filed: 02/06/2025 09:39 Note Text: [facility] Subjective Gina Gilman is a 34 year old male. Patient presents with: Cough: Cough, chest congestion, bodyaches and RAE x 1 day Cough Associated symptoms include chills, headaches, sore throat and wheezing. Pertinent negatives include no chest pain and no shortness of breath. patient is a 34-year-old male with no major medical history that presents with bodyaches, cough and a headache that came on gradually for 1 day. He denies any changes in his vision, fever. He did take some Tylenol last night. That did seem to help with the symptoms. There has been flu and COVID at work and just wants to be sure that not what it is. He denies any chest pain shortness of breath no nausea vomiting or abdominal pain. Review of Systems Constitutional: Positive for chills and fatigue. HENT: Positive for congestion and sore throat. Respiratory: Positive for cough and wheezing. Negative for shortness of breath. Cardiovascular: Negative for chest pain. Neurological: Positive for headaches. Objective BP 122/78 Pulse 75 Temp 36.1 ?C (97 ?F) (Tympanic) Resp 16 Wt 133.7 kg (294 lb 12.1 oz) SpO2 96% Physical Exam Vitals reviewed. Constitutional: Appearance: Normal appearance. HENT: Head: Normocephalic and atraumatic. Right Ear: Tympanic membrane, ear canal and external ear normal. Left Ear: Tympanic membrane, ear canal and external ear normal. Nose: Congestion present. No rhinorrhea. Mouth/Throat: Mouth: Mucous membranes are moist. Pharynx: Oropharynx is clear. No oropharyngeal exudate or posterior oropharyngeal erythema. Cardiovascular: Rate and Rhythm: Normal rate and regular rhythm. Pulses: Normal pulses. Heart sounds: Normal heart sounds. Pulmonary: Effort: Pulmonary effort is normal. No respiratory distress. Breath sounds: Normal breath sounds. No stridor. Chest: Chest wall: No tenderness. Abdominal: General: Bowel sounds are normal. Lymphadenopathy: Cervical: No cervical adenopathy. Neurological: Mental Status: He is alert. {ASSESSMENT/PLAN: 1. Viral URI with cough - ICD9: 465.9, ICD10: J06.9 - Discussed viral etiology and rationale for treatment. - Symptomatic treatment with prn analgesia - Supportive care with fluids and rest - The patient may also use OTC cough and cold meds as needed, warm salt water gargles, throat lozenges and/or OTC throat spray as needed, nasal saline gtts and suction prn, and Flonase/Nasicort. - COVID AND INFLUENZA A/B AND RSV PCR, ROUTINE Angie Arce APRN.CENTRAL SUPPLY TECHNICIAN SUPERVISOR History and Record Review External record(s) reviewed: prior outpatient record. Findings from review of outpatient records: previous urgent care record Differential Diagnoses - viral infection is more likely for the following reason(s): suggested by HANDP - pneumonia is less likely for the following reason(s): HANDP not suggestive Additional Tests or Interventions The following testing was considered but ultimately not selected after discussion with patient/family: Chest x-ray not clinically indicated The following medication(s) were considered but not ordered: Antibiotics not clinically indicated at this time. Disposition The patient was discharged. OTC Medications were advised: Tylenol ibuprofen, Nasacort Flonase, decongestant such as Claritin-D patient is well-appearing nontoxic in no acute respiratory distress. He presents with a viral upper respiratory infection. No concern for pneumonia or acute cardiopulmonary process today. COVID and flu are pending. Recommend [id number] symptom management such as Tylenol ibuprofen Flonase Nasacort decongestants as needed. Return with any new or worsening symptoms patient verbalized understanding discharged home. [facility] 02-06-2025 History of Presen t illness Narrative [facility] Subjective Gina Gilman is a 34 year old male. Patient presents with: Cough: Cough, chest congestion, bodyaches and RAE x 1 day Cough Associated symptoms include chills, headaches, sore throat and wheezing. Pertinent negatives include no chest pain and no shortness of breath. patient is a 34-year-old male with no major medical history that presents with bodyaches, cough and a headache that came on gradually for 1 day. He denies any changes in his vision, fever. He did take some Tylenol last night. That did seem to help with the symptoms. There has been flu and COVID at work and just wants to be sure that not what it is. He denies any chest pain shortness of breath no nausea vomiting or abdominal pain. Review of Systems Constitutional: Positive for chills and fatigue. HENT: Positive for congestion and sore throat. Respiratory: Positive for cough and wheezing. Negative for shortness of breath. Cardiovascular: Negative for chest pain. Neurological: Positive for headaches. Objective BP 122/78 Pulse 75 Temp 36.1 C (97 F) (Tympanic) Resp 16 Wt 133.7 kg (294 lb 12.1 oz) SpO2 96% Physical Exam Vitals reviewed. Constitutional: Appearance: Normal appearance. HENT: Head: Normocephalic and atraumatic. Right Ear: Tympanic membrane, ear canal and external ear normal. Left Ear: Tympanic membrane, ear canal and external ear normal. Nose: Congestion present. No rhinorrhea. Mouth/Throat: Mouth: Mucous membranes are moist. Pharynx: Oropharynx is clear. No oropharyngeal exudate or posterior oropharyngeal erythema. Cardiovascular: Rate and Rhythm: Normal rate and regular rhythm. Pulses: Normal pulses. Heart sounds: Normal heart sounds. Pulmonary: Effort: Pulmonary effort is normal. No respiratory distress. Breath sounds: Normal breath sounds. No stridor. Chest: Chest wall: No tenderness. Abdominal: General: Bowel sounds are normal. Lymphadenopathy: Cervical: No cervical adenopathy. Neurological: Mental Status: He is alert. {ASSESSMENT/PLAN: 1. Viral URI with cough - ICD9: 465.9, ICD10: J06.9 - Discussed viral etiology and rationale for treatment. - Symptomatic treatment with prn analgesia - Supportive care with fluids and rest - The patient may also use OTC cough and cold meds as needed, warm salt water gargles, throat lozenges and/or OTC throat spray as needed, nasal saline gtts and suction prn, and Flonase/Nasicort. - COVID & INFLUENZA A/B & RSV PCR, ROUTINE Angie Arce APRN.CENTRAL SUPPLY TECHNICIAN SUPERVISOR History and Record Review External record(s) reviewed: prior outpatient record. Findings from review of outpatient records: previous urgent care record Differential Diagnoses - viral infection is more likely for the following reason(s): suggested by H&P - pneumonia is less likely for the following reason(s): H&P not suggestive Additional Tests or Interventions The following testing was considered but ultimately not selected after discussion with patient/family: Chest x-ray not clinically indicated The following medication(s) were considered but not ordered: Antibiotics not clinically indicated at this time. Disposition The patient was discharged. OTC Medications were advised: Tylenol ibuprofen, Nasacort Flonase, decongestant such as Claritin-D patient is well-appearing nontoxic in no acute respiratory distress. He presents with a viral upper respiratory infection. No concern for pneumonia or acute cardiopulmonary process today. COVID and flu are pending. Recommend [id number] symptom management such as Tylenol ibuprofen Flonase Nasacort decongestants as needed. Return with any new or worsening symptoms patient verbalized understanding discharged home. documented in this encounter [facility] 04-15-2024 Note HNO ID: [id number] Author: RENATA SHERMAN APRN.MURALI Service: ? Author Type: Nurse Practitioner Type: Progress Notes Filed: 04/15/2024 13:18 Note Text: Subjective Cough Associated symptoms include headaches and sore throat. Pertinent negatives include no chest pain, no chills, no ear pain, no myalgias, no shortness of breath and no eye redness. Gina Gilman is a 33 year old male who presents with one month of sinus congestion, pressure, headache, sinus drainage. States he was eating Chipotle a month ago and sneezed, "pretty sure I got a piece of rice stuck in my nose". He has been using Netti Pot at home. No fever. Last night he started having discharge from his left eye. Denies eye redness or pain or loss of vision. Review of Systems Constitutional: Negative for chills, fever and malaise/fatigue. HENT: Positive for congestion, sinus pain and sore throat. Negative for ear pain. Eyes: Positive for discharge. Negative for photophobia, pain and redness. Respiratory: Negative for cough, sputum production and shortness of breath. Cardiovascular: Negative for chest pain. Gastrointestinal: Negative for diarrhea, nausea and vomiting. Musculoskeletal: Negative for myalgias. Neurological: Positive for headaches. BP 146/74 Pulse 73 Temp 36.7 ?C (98.1 ?F) Resp 16 Wt (!) 140 kg (308 lb 10.3 oz) SpO2 97% PAST MEDICAL HISTORY Diagnosis Date NEGATIVE MEDICAL HISTORY PAST SURGICAL HISTORY Procedure Laterality Date ADENOIDECTOMY PRIMARY Adenoidectomy TONSILLECTOMY PRIMARY/SECONDARY Tonsillectomy ALLERGIES Patient has no known allergies. MEDICATIONS escitalopram oxalate (LEXAPRO) 5 mg tablet Take 1 tablet by mouth every afternoon. ramipril (ALTACE) 5 mg capsule Take 1 capsule by mouth every afternoon. amoxicillin-clavulanate potassium (AUGMENTIN) 875-125 mg per tablet Take 1 tablet by mouth two times a day for 7 days. fluticasone (FLONASE) 50 mcg/actuation nasal spray Use 2 Sprays in each nostril once daily. Rinse mouth after use. quinapril (ACCUPRIL) 5 mg tablet Take 5 mg by mouth. (Patient not taking: Reported on 11/06/2023) Promethazine-DM (PHENERGAN-DM) 6.25-15 mg/5 mL syrup Take 5 mL by mouth four times daily as needed for cough. (Patient not taking: Reported on 11/06/2023) albuterol HFA (PROVENTIL HFA, VENTOLIN HFA) 90 mcg/actuation inhaler Inhale 2 Puffs as instructed every 4 hours as needed. (Patient not taking: Reported on 11/06/2023) tiZANidine (ZANAFLEX) 4 mg tablet Take 1 tablet by mouth every 6 hours as needed. (Patient not taking: Reported on 10/07/2022) cyclobenzaprine (FLEXERIL) 10 mg tablet Take 1 tablet by mouth three times daily as needed for Muscle Spasm. (Patient not taking: Reported on 03/09/2019 ) sulfamethoxazole-trimethoprim (BACTRIM DS) 800-160 mg ORAL per tablet Take 2 tablets by mouth twice daily. (Patient not taking: Reported on 03/09/2019 ) clotrimazole-betamethasone (LOTRISONE) TOPICAL cream Apply 1 application to affected area twice daily. UNTIL CLEAR FOR UP TO 2-3 WEEKS (Patient not taking: Reported on 03/09/2019 ) FAMILY HISTORY Problem Relation Age of Onset Diabetes Mother Hypertension Father Psychiatry Mother Social History Tobacco Use Smoking status: Former Packs/day: .5 Types: Cigarettes Quit date: 01/02/2013 Years since quittin.2 Smokeless tobacco: Never Substance Use Topics Alcohol use: No Drug use: No Objective Physical Exam Vitals and nursing note reviewed. Constitutional: Appearance: Normal appearance. HENT: Right Ear: Tympanic membrane, ear canal and external ear normal. Left Ear: Tympanic membrane, ear canal and external ear normal. Nose: Mucosal edema, congestion and rhinorrhea present. Rhinorrhea is clear. Mouth/Throat: Mouth: Mucous membranes are moist. Pharynx: Oropharynx is clear. Uvula midline. No oropharyngeal exudate or posterior oropharyngeal erythema. Eyes: General: Vision grossly intact. Gaze aligned appropriately. No allergic shiner. Right eye: No discharge. Left eye: No discharge. Conjunctiva/sclera: Right eye: Right conjunctiva is not injected. Left eye: Left conjunctiva is not injected. Cardiovascular: Rate and Rhythm: Normal rate and regular rhythm. Heart sounds: Normal heart sounds. Pulmonary: Effort: Pulmonary effort is normal. No respiratory distress. Breath sounds: Normal breath sounds. No wheezing or rales. Musculoskeletal: Cervical back: Neck supple. Lymphadenopathy: Cervical: No cervical adenopathy. Skin: General: Skin is warm and dry. Findings: No erythema or rash. Neurological: Mental Status: He is alert. ASSESSMENT/PLAN: 1. Bacterial sinusitis - ICD9: 473.9, 041.9, ICD10: J32.9, B96.89 (primary diagnosis) - Will begin treatment with as per antibiotic as written, see orders - Supportive care with plenty of fluids, rest, and analgesia prn. - AMOXICILLIN 875 MG-POTASSIUM CLAVULANATE 125 MG TABLET (more content not included)... [facility] 04-15-2024 History of Presen t illness Narrative Images from the original note were not included. Subjective Cough Associated symptoms include headaches and sore throat. Pertinent negatives include no chest pain, no chills, no ear pain, no myalgias, no shortness of breath and no eye redness. Gina Gilman is a 33 year old male who presents with one month of sinus congestion, pressure, headache, sinus drainage. States he was eating Chipotle a month ago and sneezed, "pretty sure I got a piece of rice stuck in my nose". He has been using Netti Pot at home. No fever. Last night he started having discharge from his left eye. Denies eye redness or pain or loss of vision. Review of Systems Constitutional: Negative for chills, fever and malaise/fatigue. HENT: Positive for congestion, sinus pain and sore throat. Negative for ear pain. Eyes: Positive for discharge. Negative for photophobia, pain and redness. Respiratory: Negative for cough, sputum production and shortness of breath. Cardiovascular: Negative for chest pain. Gastrointestinal: Negative for diarrhea, nausea and vomiting. Musculoskeletal: Negative for myalgias. Neurological: Positive for headaches. BP 146/74 Pulse 73 Temp 36.7 C (98.1 F) Resp 16 Wt (!) 140 kg (308 lb 10.3 oz) SpO2 97% PAST MEDICAL HISTORY Diagnosis Date NEGATIVE MEDICAL HISTORY PAST SURGICAL HISTORY Procedure Laterality Date ADENOIDECTOMY PRIMARY <AGE 12 Adenoidectomy TONSILLECTOMY PRIMARY/SECONDARY <AGE 12 Tonsillectomy ALLERGIES Patient has no known allergies. MEDICATIONS escitalopram oxalate (LEXAPRO) 5 mg tablet Take 1 tablet by mouth every afternoon. ramipril (ALTACE) 5 mg capsule Take 1 capsule by mouth every afternoon. amoxicillin-clavulanate potassium (AUGMENTIN) 875-125 mg per tablet Take 1 tablet by mouth two times a day for 7 days. fluticasone (FLONASE) 50 mcg/actuation nasal spray Use 2 Sprays in each nostril once daily. Rinse mouth after use. quinapril (ACCUPRIL) 5 mg tablet Take 5 mg by mouth. (Patient not taking: Reported on 11/06/2023) Promethazine-DM (PHENERGAN-DM) 6.25-15 mg/5 mL syrup Take 5 mL by mouth four times daily as needed for cough. (Patient not taking: Reported on 11/06/2023) albuterol HFA (PROVENTIL HFA, VENTOLIN HFA) 90 mcg/actuation inhaler Inhale 2 Puffs as instructed every 4 hours as needed. (Patient not taking: Reported on 11/06/2023) tiZANidine (ZANAFLEX) 4 mg tablet Take 1 tablet by mouth every 6 hours as needed. (Patient not taking: Reported on 10/07/2022) cyclobenzaprine (FLEXERIL) 10 mg tablet Take 1 tablet by mouth three times daily as needed for Muscle Spasm. (Patient not taking: Reported on 03/09/2019 ) sulfamethoxazole-trimethoprim (BACTRIM DS) 800-160 mg ORAL per tablet Take 2 tablets by mouth twice daily. (Patient not taking: Reported on 03/09/2019 ) clotrimazole-betamethasone (LOTRISONE) TOPICAL cream Apply 1 application to affected area twice daily. UNTIL CLEAR FOR UP TO 2-3 WEEKS (Patient not taking: Reported on 03/09/2019 ) FAMILY HISTORY Problem Relation Age of Onset Diabetes Mother Hypertension Father Psychiatry Mother Social History Tobacco Use Smoking status: Former Packs/day: .5 Types: Cigarettes Quit date: 01/02/2013 Years since quittin.2 Smokeless tobacco: Never Substance Use Topics Alcohol use: No Drug use: No Objective Physical Exam Vitals and nursing note reviewed. Constitutional: Appearance: Normal appearance. HENT: Right Ear: Tympanic membrane, ear canal and external ear normal. Left Ear: Tympanic membrane, ear canal and external ear normal. Nose: Mucosal edema, congestion and rhinorrhea present. Rhinorrhea is clear. Mouth/Throat: Mouth: Mucous membranes are moist. Pharynx: Oropharynx is clear. Uvula midline. No oropharyngeal exudate or posterior oropharyngeal erythema. Eyes: General: Vision grossly intact. Gaze aligned appropriately. No allergic shiner. Right eye: No discharge. Left eye: No discharge. Conjunctiva/sclera: Right eye: Right conjunctiva is not injected. Left eye: Left conjunctiva is not injected. Cardiovascular: Rate and Rhythm: Normal rate and regular rhythm. Heart sounds: Normal heart sounds. Pulmonary: Effort: Pulmonary effort is normal. No respiratory distress. Breath sounds: Normal breath sounds. No wheezing or rales. Musculoskeletal: Cervical back: Neck supple. Lymphadenopathy: Cervical: No cervical adenopathy. Skin: General: Skin is warm and dry. Findings: No erythema or rash. Neurological: Mental Status: He is alert. ASSESSMENT/PLAN: 1. Bacterial sinusitis - ICD9: 473.9, 041.9, ICD10: J32.9, B96.89 (primary diagnosis) - Will begin treatment with as per antibiotic as written, see orders - Supportive care with plenty of fluids, rest, and analgesia prn. - AMOXICILLIN 875 MG-POTASSIUM CLAVULANATE 125 MG TABLET - FLUTICASONE PROPIONATE 50 MCG/ACTUATION NASAL SPRAY,SUSPENSION 2. Eye drainage - ICD9: 379.93, ICD10: H57.89 - low suspicion for pinkeye, likely due to sinusitis and should respond to antibiotic treatment. 3. Sinus pressure - ICD9: 478.19, ICD10: J34.89 - flonase nasal spray as prescribed. - Follow-up with your PCP in 3-5 days if symptoms have not improved or sooner if symptoms worsen - Discussed red flags and need for immediate medical evaluation if any occur. - Discussed supportive care treatment with fluids, rest and analgesia. - Discussed expected course of illness Renata Sherman APRN.CENTRAL SUPPLY TECHNICIAN SUPERVISOR documented in this encounter [facility] 04-15-2024 Instructions Renata Sherman APRN.CENTRAL SUPPLY TECHNICIAN SUPERVISOR - 04/15/2024 1:14 PM EDT Images from the original note were not included. ASSESSMENT/PLAN: 1. Bacterial sinusitis - ICD9: 473.9, 041.9, ICD10: J32.9, B96.89 (primary diagnosis) - Will begin treatment with as per antibiotic as written, see orders - Supportive care with plenty of fluids, rest, and analgesia prn. - AMOXICILLIN 875 MG-POTASSIUM CLAVULANATE 125 MG TABLET - FLUTICASONE PROPIONATE 50 MCG/ACTUATION NASAL SPRAY,SUSPENSION 2. Eye drainage - ICD9: 379.93, ICD10: H57.89 - low suspicion for pinkeye, likely due to sinusitis and should respond to antibiotic treatment. 3. Sinus pressure - ICD9: 478.19, ICD10: J34.89 - flonase nasal spray as prescribed. - Follow-up with your PCP in 3-5 days if symptoms have not improved or sooner if symptoms worsen - Discussed red flags and need for immediate medical evaluation if any occur. - Discussed supportive care treatment with fluids, rest and analgesia. - Discussed expected course of illness Renata Sherman APRN.CENTRAL SUPPLY TECHNICIAN SUPERVISOR Adult Sinusitis Patient Education What is Sinusitis? Sinusitis [qnti-bsm-axqv-tis] is inflammation of the sinuses or swelling of the lining of the sinus cavity or nose. During an infection the sinuses become blocked with fluid causing swelling of the lining of the sinuses. Symptoms: (viral and bacterial infections) Stuffy nose Runny nose Postnasal drip Fever Toothache Headache Tiredness Cough Sore throat Face and head pressure and or pain Common causes: 98% of sinus infections are viral caused by viruses. Risk Factors of Sinusitis Include: Allergies, air pollution, indoor humidity and outdoor temperature changes, andstructural changes in the nose may contribute to sinus pain, pressure and congestion. When to get help? Temperature greater than 100.4 F Symptoms lasting more than 10 days or worsening symptoms greater than 7-10 days. If you do not improve or worsen after a course of antibiotics, you should be re-examined. Diagnosis and Treatment: Your healthcare provider will ask a number of questions about your symptoms and how long they have occurred. If symptoms of sinusitis persist greater than 10 days, it is possible you have a bacterial sinus infection and an antibiotic is prescribed. If it is viral, antibiotics will not help. You may be instructed to take qocw-ayo-tszinqw medications for symptoms. including fever reducers acetaminophen or ibuprofen, nasal saline spray, cough and cold preparations and decongestants as prescribed by the physician, nurse practitioner or physician administrative assistant data entry. Self-Care and Prevention: Rest Fluids for hydration Good hand washing Humidifier Avoid smoking and exposure to second hand smoke Avoid sick contacts documented in this encounter [facility] 03-20-2023 Evaluation + Plan note Extrac andres from: Title:Clinical Document Author:GUSTAVO PLATA PM Date:03/20/23 [facility] ADMISSION HISTORY AN D PHYSICIAL CHIEF COMPLAINT: HISTORY OF PRESENT ILLNESS: REVIEW OF SYSTEMS: ACTIVE PROBLEMS: (2) Anxiety ([id number]) HTN (hypertension) ([id number]) MEDICATIONS: Active Inpt Meds: None Active PRN Meds: None One Time Meds: (Completed) acetaminophen (Ofirmev IVPB (ANES)) IV Piggyback, Once, Stop: 03/20/23 8:53:00 EDT (Completed) dexAMETHasone (Decadron (ANES)) IV Push, Once, Stop: 03/20/23 8:53:00 EDT (Completed) fentaNYL (Sublimaze (ANES)) IV Push, Once, Stop: 03/20/23 8:48:00 EDT (Completed) glycopyrrolate (glycopyrrolate (ANES)) IV Push, Once, Stop: 03/20/23 8:48:00 EDT (Completed) lidocaine (Xylocaine 2% 5 mL syringe (ANES) (ANES)) IV Push, Once, Stop: 03/20/23 8:48:00 EDT (Completed) midazolam (Versed (ANES)) IV Push, Once, Stop: 03/20/23 8:48:00 EDT (Completed) ondansetron (Zofran (ANES)) IV Push, Once, Stop: 03/20/23 8:53:00 EDT (Completed) propofol (propofol (ANES)) IV Push, Once, Stop: 03/20/23 8:48:00 EDT Active IV Meds: Lactated Ringers Infusion 1,000 mL (LR 1,000 mL) Start: 03/20/23 7:06:00 EDT, Rate: 125 mL/hr, 03/20/23 7:06:00 EDT ALLERGIES: (1) No Known Medication Allergies FAMILY HISTORY: SOCIAL HISTORY: PHYSICAL EXAM: VITALS: [id number](kg) 03/20 09:15----113--98--88944.8 03/20 09:10----64--98-- 03/20 09:05----63--98-- 03/20 09:00----59--98-- 03/20 08:55----59--98-- 24 Hr Tmax: 36.3 at 03/20 07:15 36 Hr Tmax: 36.3 at 03/20 07:15 Vital Signs are the last 5 in the past 48 hours. Weights display the last 5 within 7 days. Initial Wt: 03/20 131.8 kg 290 lb Current Wt: 03/20 131.8 kg 290 lb GENERAL: HEENT: CARDIOVASCULAR: RESPIRATORY: ABDOMEN: EXREMETIES: NEUROLOGICAL: PSYCHIATRIC: LABS: No 36hr Lab Data DIAGNOSTICS: IMPRESSION: PLAN: History and Physical Update I have examined the patient; reviewed the H&P and there are no changes to the H&P unless noted below. Extracted from: Title:Clinical Document Author:GUSTAVO PLATA PM Date:03/20/23 [facility] ADMISSION HISTORY AN D PHYSICIAL CHIEF COMPLAINT: HISTORY OF PRESENT ILLNESS: REVIEW OF SYSTEMS: ACTIVE PROBLEMS: (2) Anxiety ([id number]) HTN (hypertension) ([id number]) MEDICATIONS: Active Inpt Meds: None Active PRN Meds: None One Time Meds: None Active IV Meds: Lactated Ringers Infusion 1000 mL (LR 1000 mL) Start: 03/20/23 7:06:00 EDT, Rate: 125 mL/hr, 03/20/23 7:06:00 EDT ALLERGIES: (1) No Known Medication Allergies FAMILY HISTORY: SOCIAL HISTORY: PHYSICAL EXAM: VITALS: No Data Available 24 Hr Tmax: No Data Available 36 Hr Tmax: No Data Available Vital Signs are the last 5 in the past 48 hours. Weights display the last 5 within 7 days. Initial Wt: No Data Available Current Wt: No Data Available GENERAL: HEENT: CARDIOVASCULAR: RESPIRATORY: ABDOMEN: EXREMETIES: NEUROLOGICAL: PSYCHIATRIC: LABS: No 36hr Lab Data DIAGNOSTICS: IMPRESSION: PLAN: History and Physical Update I have examined the patient; reviewed the H&P and there are no changes to the H&P unless noted below. [facility] 05-26-2023 Hospital Discharge instructions Patient Education 03/20/2023 10:06:54 Complex Ankle Fracture Complex Ankle Fracture A complex ankle fracture is a break that affects the parts of your ankle joint that carry your bodyweight (weight-bearing parts). The fracture causes the bones to break into fragments. A complex ankle fracture may also be called a pilon fracture. There are two bones in the lower leg (tibia and fibula). A complex ankle fracture always affects the tibia, and often affects the end of the fibula as well. Other bones may also be fractured, such asthe heel bone (calcaneus). What are the causes? This condition is usually caused by: Falling from very high up and landing on your feet. Skiing accidents. Car or motorcycle accidents. What increases the risk? You are more likely to have a complex ankle fracture if you: Do high-risk activities like car or motorcycle racing or downhill skiing. Are male, especially if you are 30 40 years old. Are older, especially if you have lost bone density from conditions such as osteopenia or osteoporosis. What are the signs or symptoms? Signs and symptoms of a complex ankle fracture may include: Severe pain. Being unable to walk. Change in the shape of your ankle. Severe swelling and bruising. Feeling cold or numb (or both) in your foot below the fracture site. Cuts (lacerations) at or around the fracture site. How is this diagnosed? This condition may be diagnosed based on: A physical exam. X-rays. CT scans. How is this treated? Treatment for this condition depends on how bad the fracture is and whether a bone has moved out ofplace. Non-surgical treatment You may have non-surgical treatment if: Your bones are lined up properly. There are few bone fragments. Non-surgical treatment is done in three steps: 1.First, you will wear a short leg splint. This protects the area and allows swelling to go down. 2.After your swelling goes down, your leg will be placed in a short leg cast. Usually, you will wear this cast for 6 weeks. This holds your bones in place while the bones heal. 3.When your health care provider determines that your bones have healed enough, your cast will be removed and replaced with a removable brace. Surgical treatment You may need surgery if your bones have moved from their normal positions (are displaced) and if there are many bone fragments. Surgical repair of a complex ankle fracture may include various combinations of the following: Realigning and holding bone fragments together by applying wires, plates, and screws (internal hardware) directly to the bones. Combining internal hardware with external, adjustable pins and screws that are applied to the bonesthrough the skin (external fixator). You will not be able to move your ankle until the external fixator is removed. After surgery, your health care provider will place your leg in a cast or splint. Follow these instructions at home: If you have a splint or brace: Wear and remove the splint or brace only as told by your health care provider. If you have a removable brace, your health care provider may instruct you to remove it before bathing. Loosen the splint or brace if your toes tingle, become numb, or turn cold and blue. Keep the splint or brace clean and dry. If you have a cast: Do not stick anything inside the cast to scratch your skin. Doing that increases your risk of infection. Check the skin around the cast every day. Tell your health care provider about any concerns. You may put lotion on dry skin around the edges of the cast. Do not put lotion on the skin underneath the cast. Keep the cast clean and dry. Bathing Do not take baths, swim, or use a hot tub until your health care provider approves. Ask your healthcare provider if you can take showers. If your foot support is not waterproof: ?Do not let it get wet. ?Cover it with a watertight covering when you take a bath or a shower. Managing pain, stiffness, and swelling If directed, put ice on painful areas: ?If you have a removable brace, remove it as told by your health care provider. ?Put ice in a plastic bag. ?Place a towel between your skin and the bag, or between your cast and the bag. ?Leave the ice on for 20 minutes, 2 3 times a day. Move your toes often to avoid stiffness and to lessen swelling. Raise (elevate) your ankle above the level of your heart while you are sitting or lying down. Driving Do not drive until your health care provider approves. You should not drive or use heavy machinery while taking pain medicine. Ask your health care provider when it is safe to drive if you have a cast, splint, or brace. Activity Do not use your leg to support your body weight until your health care provider says that you can. Follow weight-bearing restrictions and use assistive devices to help you move around. Ask your health care provider what activities are safe for you and what activities you need to avoid. If physical therapy was prescribed, do exercises as directed. General instructions Do not put pressure on any part of the cast or splint until it is fully hardened, if applicable. This may take several hours. Do not use any products that contain nicotine or tobacco, such as cigarettes and e-cigarettes. These can delay bone healing. If you need help quitting, ask your health care provider. Take xonq-khu-tkiehmh and prescription medicines only as told by your health care provider. If you are taking prescription pain medicine, take actions to prevent or treat constipation. Your health care provider may recommend that you: ?Drink enough fluid to keep your urine pale yellow. ?Eat foods that are high in fiber, such as fresh fruits and vegetables, whole grains, and beans. ?Limit foods that are high in fat and processed sugars, such as fried or sweet foods. ?Take an xjga-igm-gborcbi or prescription medicine for constipation. Keep all follow-up visits as told by your health care provider. This is important. Contact a health care provider if: You have a fever or chills. Your splint, cast, or brace gets damaged or breaks. Get help right away if: You suddenly develop worsening pain or swelling in your leg or foot. You have chest pain. You have shortness of breath. You develop redness around the fracture site. Fluid or blood starts draining from the fracture site. You have new numbness or tingling at or around the fracture site. Summary A complex ankle fracture, or pilon fracture, is a break that affects the parts of your ankle joint that carry your body weight. With this type of fracture, the bones break into fragments. Treatment depends on how bad the fracture is and whether a bone has moved out of place. Do not use your leg to support your body weight until your health care provider says that you can. This information is not intended to replace advice given to you by your health care provider. Make sure you discuss any questions you have with your health care provider. Document Released: 05/09/2015 Document Revised: 09/30/2018 Document Reviewed: 09/30/2018 [employer] Patient Education 2020 IM5. 03/20/2023 10:04:43 How to Use Cold Therapy, Lqaq-tp-Ukkx How to Use Cold Therapy Cold therapy, or cryotherapy, is a treatment that uses cold temperatures to treat an injury or medical condition. It includes using cold packs or ice packs to reduce pain and swelling. Only use cold therapy if your doctor says it is okay. What are the risks? Generally, cold therapy is a safe treatment. However, it is not safe for: People who are not able to say they are in pain. These include small children and people who have memory problems. People who have certain conditions, such as: ?A problem in the vessels that slows blood flow to the fingers and toes (Raynaud's syndrome). ?Feeling very cold easily (cold hypersensitivity). ?Lack of feeling in the area being iced. Cold therapy may not be safe for people who have other conditions. Do not use it without talking toyour doctor if you have: A heart condition. High blood pressure. Open or healing wounds. An infection. Pain and swelling in your joints (rheumatoid arthritis). Poor blood flow in the body. Diabetes. Certain skin conditions. How can I make a cold pack? When using a cold pack at home to reduce pain and swelling, you can use: A silica gel cold pack that has been left in the freezer. You can buy this online or in stores. A sealable plastic bag that has been filled with crushed ice. A washcloth or paper towels soaked in cold (or ice) water. A plastic bag of frozen vegetables. Throw them away when you are finished using them as a cold pack. Supplies needed: A cold pack. A towel. This can be dry or damp, based on what you like. How to use cold therapy 1.Have your cold pack ready. 2.Place a towel between the cold pack and your skin. You may also wrap the cold pack in a towel. 3.Put the cold pack on the affected area. Keep it on for no more than 20 minutes at a time. 4.Check your skin after 5 minutes to make sure that there is no damage to the area. Check for: White spots on your skin. Your skin may look blotchy or mottled. Skin that looks blue or pale. Skin that feels waxy or hard. 5.Repeat these steps as many times each day as told by your doctor. Always use a towel to avoid direct contact with your skin. Contact a doctor if: You start to have white spots on your skin. This may give your skin a blotchy or mottled look. Your skin turns blue or pale. Your skin becomes waxy or hard. Your swelling gets worse. Summary Cold therapy, or cryotherapy, is used to treat an injury or other conditions. It includes using cold packs or ice packs to reduce pain and swelling. Cold therapy is not safe for people who are not able to say they are in pain. When using cold packs or ice packs, always place a towel between the cold source and your skin. Check your skin after 5 minutes of icing it. This is to make sure that there is no skin damage. Contact your doctor if you notice changes in your skin or your swelling gets worse. This information is not intended to replace advice given to you by your health care provider. Make sure you discuss any questions you have with your health care provider. Document Released: 03/30/2009 Document Revised: 07/11/2019 Document Reviewed: 07/11/2019 [employer] Patient Education 2020 IM5. 03/20/2023 10:03:57 General Anesthesia, Adult, Care After General Anesthesia, Adult, Care After This sheet gives you information about how to care for yourself after your procedure. Your health care provider may also give you more specific instructions. If you have problems or questions, contact your health care provider. What can I expect after the procedure? After the procedure, the following side effects are common: Pain or discomfort at the IV site. Nausea. Vomiting. Sore throat. Trouble concentrating. Feeling cold or chills. Weak or tired. Sleepiness and fatigue. Soreness and body aches. These side effects can affect parts of the body that were not involved in surgery. Follow these instructions at home: For at least 24 hours after the procedure: Have a responsible adult stay with you. It is important to have someone help care for you until youare awake and alert. Rest as needed. Do not: ?Participate in activities in which you could fall or become injured. ?Drive. ?Use heavy machinery. ?Drink alcohol. ?Take sleeping pills or medicines that cause drowsiness. ?Make important decisions or sign legal documents. ?Take care of children on your own. Eating and drinking Follow any instructions from your health care provider about eating or drinking restrictions. When you feel hungry, start by eating small amounts of foods that are soft and easy to digest (bland), such as toast. Gradually return to your regular diet. Drink enough fluid to keep your urine pale yellow. If you vomit, rehydrate by drinking water, juice, or clear broth. General instructions If you have sleep apnea, surgery and certain medicines can increase your risk for breathing problems. Follow instructions from your health care provider about wearing your sleep device: ?Anytime you are sleeping, including during daytime naps. ?While taking prescription pain medicines, sleeping medicines, or medicines that make you drowsy. Return to your normal activities as told by your health care provider. Ask your health care provider what activities are safe for you. Take qbau-qrz-ksjdckl and prescription medicines only as told by your health care provider. If you smoke, do not smoke without supervision. Keep all follow-up visits as told by your health care provider. This is important. Contact a health care provider if: You have nausea or vomiting that does not get better with medicine. You cannot eat or drink without vomiting. You have pain that does not get better with medicine. You are unable to pass urine. You develop a skin rash. You have a fever. You have redness around your IV site that gets worse. Get help right away if: You have difficulty breathing. You have chest pain. You have blood in your urine or stool, or you vomit blood. Summary After the procedure, it is common to have a sore throat or nausea. It is also common to feel tired. Have a responsible adult stay with you for the first 24 hours after general anesthesia. It is important to have someone help care for you until you are awake and alert. When you feel hungry, start by eating small amounts of foods that are soft and easy to digest (bland), such as toast. Gradually return to your regular diet. Drink enough fluid to keep your urine pale yellow. Return to your normal activities as told by your health care provider. Ask your health care provider what activities are safe for you. This information is not intended to replace advice given to you by your health care provider. Make sure you discuss any questions you have with your health care provider. Document Released: 01/18/2002 Document Revised: 10/15/2018 Document Reviewed: 05/28/2018 [employer] Patient Education 2020 IM5. Follow Up Care 02/23/2023 13:54:07 With:GUSTAVO PLATA DPM, Surgery Address: [address] [place] [address], [address] [facility] [place] [address]- When: Unknown Comments:CALL DR PLATA WITH ANY QUESTIONS OR CONCERNS. GO TO THE EMERGENCY ROOM WITH ANY URGENT CONCERNS. ICE AND ELEVATE ABOVE THE HIP LEVEL [facility] 05-26-2023 Summary of episode note Discharge Instructions Thank you for allowing [facility] to assist you with your healthcare needs. The following is importantdischarge information regarding your hospital visit. Your Care Team MICAH MATHIS MD, DR. What to do next Follow Up Appointments Follow Up with GUSTAVO PLATA DPM, Surgery When Why: CALL DR PLATA WITH ANY QUESTIONS OR CONCERNS. GO TO THE EMERGENCY ROOM WITH ANY URGENT CONCERNS. ICE AND ELEVATE ABOVE THE HIP LEVEL Where: [address], [address] [facility] [place] [address]- The Following Activity and Diet Have Been Ordered for You Discharge Activity - Ordered -- Other, Follow the post-operative/post-procedure activity instructions provided by your physician's office., 03/20/23 9:25:00 EDT No qualifying data available. The Following Equipment Has Been Ordered for You Discharge Home Equipment Discharge Wound Care - Ordered -- Follow the post-operative/post-procedure wound care instructions provided by your physician's office., 03/20/23 9:25:00 EDT Allergies No Known Medication Allergies Medications Please ask your primary doctor or pharmacist before taking any other medication not listed, including over the counter drugs, herbal medications, vitamins and or supplements as they may interact withyour home medications. What When Instructions Last Dose Unchanged ramipril (ramipril 5 mg oral capsule) TAKE 1 CAPSULE BY MOUTH EVERY DAY Please take this list to your next doctor s visit. Bring all medications you take, including over the counter medications, herbals and other supplements with you to your doctor s visit. Patients and families are reminded to discard old lists and to update any records with all medication providers or retail pharmacies. Education Materials Complex Ankle Fracture A complex ankle fracture is a break that affects the parts of your ankle joint that carry your bodyweight (weight-bearing parts). The fracture causes the bones to break into fragments. A complex ankle fracture may also be called a pilon fracture. There are two bones in the lower leg (tibia and fibula). A complex ankle fracture always affects the tibia, and often affects the end of the fibula as well. Other bones may also be fractured, such asthe heel bone (calcaneus). What are the causes? This condition is usually caused by: Falling from very high up and landing on your feet. Skiing accidents. Car or motorcycle accidents. What increases the risk? You are more likely to have a complex ankle fracture if you: Do high-risk activities like car or motorcycle racing or downhill skiing. Are male, especially if you are 30 40 years old. Are older, especially if you have lost bone density from conditions such as osteopenia or osteoporosis. What are the signs or symptoms? Signs and symptoms of a complex ankle fracture may include: Severe pain. Being unable to walk. Change in the shape of your ankle. Severe swelling and bruising. Feeling cold or numb (or both) in your foot below the fracture site. Cuts (lacerations) at or around the fracture site. How is this diagnosed? This condition may be diagnosed based on: A physical exam. X-rays. CT scans. How is this treated? Treatment for this condition depends on how bad the fracture is and whether a bone has moved out ofplace. Non-surgical treatment You may have non-surgical treatment if: Your bones are lined up properly. There are few bone fragments. Non-surgical treatment is done in three steps: 1. First, you will wear a short leg splint. This protects the area and allows swelling to go down. 2. After your swelling goes down, your leg will be placed in a short leg cast. Usually, you will wear this cast for 6 weeks. This holds your bones in place while the bones heal. 3. When your health care provider determines that your bones have healed enough, your cast will be removed and replaced with a removable brace. Surgical treatment You may need surgery if your bones have moved from their normal positions (are displaced) and if there are many bone fragments. Surgical repair of a complex ankle fracture may include various combinations of the following: Realigning and holding bone fragments together by applying wires, plates, and screws (internal hardware) directly to the bones. Combining internal hardware with external, adjustable pins and screws that are applied to the bonesthrough the skin (external fixator). You will not be able to move your ankle until the external fixator is removed. After surgery, your health care provider will place your leg in a cast or splint. Follow these instructions at home: If you have a splint or brace: Wear and remove the splint or brace only as told by your health care provider. If you have a removable brace, your health care provider may instruct you to remove it before bathing. Loosen the splint or brace if your toes tingle, become numb, or turn cold and blue. Keep the splint or brace clean and dry. If you have a cast: Do not stick anything inside the cast to scratch your skin. Doing that increases your risk of infection. Check the skin around the cast every day. Tell your health care provider about any concerns. You may put lotion on dry skin around the edges of the cast. Do not put lotion on the skin underneath the cast. Keep the cast clean and dry. Bathing Do not take baths, swim, or use a hot tub until your health care provider approves. Ask your healthcare provider if you can take showers. If your foot support is not waterproof: ? Do not let it get wet. ? Cover it with a watertight covering when you take a bath or a shower. Managing pain, stiffness, and swelling If directed, put ice on painful areas: ? If you have a removable brace, remove it as told by your health care provider. ? Put ice in a plastic bag. ? Place a towel between your skin and the bag, or between your cast and the bag. ? Leave the ice on for 20 minutes, 2 3 times a day. Move your toes often to avoid stiffness and to lessen swelling. Raise (elevate) your ankle above the level of your heart while you are sitting or lying down. Driving Do not drive until your health care provider approves. You should not drive or use heavy machinery while taking pain medicine. Ask your health care provider when it is safe to drive if you have a cast, splint, or brace. Activity Do not use your leg to support your body weight until your health care provider says that you can. Follow weight-bearing restrictions and use assistive devices to help you move around. Ask your health care provider what activities are safe for you and what activities you need to avoid. If physical therapy was prescribed, do exercises as directed. General instructions Do not put pressure on any part of the cast or splint until it is fully hardened, if applicable. This may take several hours. Do not use any products that contain nicotine or tobacco, such as cigarettes and e-cigarettes. These can delay bone healing. If you need help quitting, ask your health care provider. Take sgsi-nlu-cqhbzfg and prescription medicines only as told by your health care provider. If you are taking prescription pain medicine, take actions to prevent or treat constipation. Your health care provider may recommend that you: ? Drink enough fluid to keep your urine pale yellow. ? Eat foods that are high in fiber, such as fresh fruits and vegetables, whole grains, and beans. ? Limit foods that are high in fat and processed sugars, such as fried or sweet foods. ? Take an wnlm-cnm-ocwdkjz or prescription medicine for constipation. Keep all follow-up visits as told by your health care provider. This is important. Contact a health care provider if: You have a fever or chills. Your splint, cast, or brace gets damaged or breaks. Get help right away if: You suddenly develop worsening pain or swelling in your leg or foot. You have chest pain. You have shortness of breath. You develop redness around the fracture site. Fluid or blood starts draining from the fracture site. You have new numbness or tingling at or around the fracture site. Summary A complex ankle fracture, or pilon fracture, is a break that affects the parts of your ankle joint that carry your body weight. With this type of fracture, the bones break into fragments. Treatment depends on how bad the fracture is and whether a bone has moved out of place. Do not use your leg to support your body weight until your health care provider says that you can. This information is not intended to replace advice given to you by your health care provider. Make sure you discuss any questions you have with your health care provider. Document Released: 05/09/2015 Document Revised: 09/30/2018 Document Reviewed: 09/30/2018 [employer] Patient Education 2020 [employer] How to Use Cold Therapy Cold therapy, or cryotherapy, is a treatment that uses cold temperatures to treat an injury or medical condition. It includes using cold packs or ice packs to reduce pain and swelling. Only use cold therapy if your doctor says it is okay. What are the risks? Generally, cold therapy is a safe treatment. However, it is not safe for: People who are not able to say they are in pain. These include small children and people who have memory problems. People who have certain conditions, such as: ? A problem in the vessels that slows blood flow to the fingers and toes (Raynaud's syndrome). ? Feeling very cold easily (cold hypersensitivity). ? Lack of feeling in the area being iced. Cold therapy may not be safe for people who have other conditions. Do not use it without talking toyour doctor if you have: A heart condition. High blood pressure. Open or healing wounds. An infection. Pain and swelling in your joints (rheumatoid arthritis). Poor blood flow in the body. Diabetes. Certain skin conditions. How can I make a cold pack? When using a cold pack at home to reduce pain and swelling, you can use: A silica gel cold pack that has been left in the freezer. You can buy this online or in stores. A sealable plastic bag that has been filled with crushed ice. A washcloth or paper towels soaked in cold (or ice) water. A plastic bag of frozen vegetables. Throw them away when you are finished using them as a cold pack. Supplies needed: A cold pack. A towel. This can be dry or damp, based on what you like. How to use cold therapy 1. Have your cold pack ready. 2. Place a towel between the cold pack and your skin. You may also wrap the cold pack in a towel. 3. Put the cold pack on the affected area. Keep it on for no more than 20 minutes at a time. 4. Check your skin after 5 minutes to make sure that there is no damage to the area. Check for: White spots on your skin. Your skin may look blotchy or mottled. Skin that looks blue or pale. Skin that feels waxy or hard. 5. Repeat these steps as many times each day as told by your doctor. Always use a towel to avoid direct contact with your skin. Contact a doctor if: You start to have white spots on your skin. This may give your skin a blotchy or mottled look. Your skin turns blue or pale. Your skin becomes waxy or hard. Your swelling gets worse. Summary Cold therapy, or cryotherapy, is used to treat an injury or other conditions. It includes using cold packs or ice packs to reduce pain and swelling. Cold therapy is not safe for people who are not able to say they are in pain. When using cold packs or ice packs, always place a towel between the cold source and your skin. Check your skin after 5 minutes of icing it. This is to make sure that there is no skin damage. Contact your doctor if you notice changes in your skin or your swelling gets worse. This information is not intended to replace advice given to you by your health care provider. Make sure you discuss any questions you have with your health care provider. Document Released: 03/30/2009 Document Revised: 07/11/2019 Document Reviewed: 07/11/2019 [employer] Patient Education 2020 IM5. General Anesthesia, Adult, Care After This sheet gives you information about how to care for yourself after your procedure. Your health care provider may also give you more specific instructions. If you have problems or questions, contact your health care provider. What can I expect after the procedure? After the procedure, the following side effects are common: Pain or discomfort at the IV site. Nausea. Vomiting. Sore throat. Trouble concentrating. Feeling cold or chills. Weak or tired. Sleepiness and fatigue. Soreness and body aches. These side effects can affect parts of the body that were not involved in surgery. Follow these instructions at home: For at least 24 hours after the procedure: Have a responsible adult stay with you. It is important to have someone help care for you until youare awake and alert. Rest as needed. Do not: ? Participate in activities in which you could fall or become injured. ? Drive. ? Use heavy machinery. ? Drink alcohol. ? Take sleeping pills or medicines that cause drowsiness. ? Make important decisions or sign legal documents. ? Take care of children on your own. Eating and drinking Follow any instructions from your health care provider about eating or drinking restrictions. When you feel hungry, start by eating small amounts of foods that are soft and easy to digest (bland), such as toast. Gradually return to your regular diet. Drink enough fluid to keep your urine pale yellow. If you vomit, rehydrate by drinking water, juice, or clear broth. General instructions If you have sleep apnea, surgery and certain medicines can increase your risk for breathing problems. Follow instructions from your health care provider about wearing your sleep device: ? Anytime you are sleeping, including during daytime naps. ? While taking prescription pain medicines, sleeping medicines, or medicines that make you drowsy. Return to your normal activities as told by your health care provider. Ask your health care provider what activities are safe for you. Take faav-fak-ngeurvz and prescription medicines only as told by your health care provider. If you smoke, do not smoke without supervision. Keep all follow-up visits as told by your health care provider. This is important. Contact a health care provider if: You have nausea or vomiting that does not get better with medicine. You cannot eat or drink without vomiting. You have pain that does not get better with medicine. You are unable to pass urine. You develop a skin rash. You have a fever. You have redness around your IV site that gets worse. Get help right away if: You have difficulty breathing. You have chest pain. You have blood in your urine or stool, or you vomit blood. Summary After the procedure, it is common to have a sore throat or nausea. It is also common to feel tired. Have a responsible adult stay with you for the first 24 hours after general anesthesia. It is important to have someone help care for you until you are awake and alert. When you feel hungry, start by eating small amounts of foods that are soft and easy to digest (bland), such as toast. Gradually return to your regular diet. Drink enough fluid to keep your urine pale yellow. Return to your normal activities as told by your health care provider. Ask your health care provider what activities are safe for you. This information is not intended to replace advice given to you by your health care provider. Make sure you discuss any questions you have with your health care provider. Document Released: 01/18/2002 Document Revised: 10/15/2018 Document Reviewed: 05/28/2018 [employer] Patient Education 2020 [employer] Additional Information VACCINATE! IT SAVES LIVES! Members of the community who have not yet received the COVID-19 vaccine and would like to receive it can visit one of [facility] vaccine clinics. There are many vaccine clinic locations within the [facility]. For locations and available times, please visit [email or web address] It is important to note that some COVID mobile vaccine clinics are held outdoors and may be canceled in rainy or stormy conditions. To learn more about pediatric vaccinations (ages 5-11), we invite you to visit the [facility] webpage. [email or web address] learn more about the COVID-19 vaccine, we invite you to visit the CDC website for a list of frequently asked questions.https://www.cdc.gov/coronavirus/2019-ncov/vaccines/faq.html [facility] Patient Portal Access Instructions: Stay connected with your healthcare team and access your personal medical information anytime with the [facility] Patient Portal. Please follow the directions below to create your [facility] account: 1.Access the email account you provided upon registration to the hospital/physician office.2.Look for an invitation email from [facility].3.Open the email and access the invitation link: AcceptInvitation to [facility].4.Fill in the required timmons to create your account. To access your account, visit [employer]. Click the blue button labeled "Access Patient Portal" and then log in with the username and password that you created in the steps above. You will be able to view your test results, lab results, a summary of your visits, upcoming appointments and more. There is also a convenient messaging option where you can send secure messages to your p [employer]. In addition, you will have the ability to download any documents or summaries to your computer and/or send the information securely to a physician. Remember that your healthcare information is confidential, so carefully consider who you will allowto register on the [facility] Patient Portal for access to your information. You can also access the [facility] Patient Portal on the [facility] osiel. Simply click on "Patient Portal" and then log into your account. If you would like to receive a full copy of your medical records, please contact the [facility] Medical Records Department by calling [phone], Thursday through Thursday between 8 a.m. and 4:30 p.m. HOW TO SAFELY DISPOSE OF PRESCRIPTION MEDICATIONS Please use one of the following methods to safely dispose of your unused medications. 1.Use a drug disposal kit: the drug disposal pouch allows you to safely discard your old and unuseddrugs. Ask your nurse to give you one when you are discharged.2.Visit a local take-back location: Many local pharmacies and police departments have programs that collect old and unwanted prescriptiondrugs. Call your local pharmacy or go to [email or web address]/[email or web address] to find one close to you.3.Make use of household items: Use cat litter or old coffee grounds to dispose medications if other options arenot available. Mix your drugs with these household products, seal them in an airtight container andthrow it into the garbage. Call [facility]: [phone] to be sure your drugs can be disposed of in this way. Some medicines may require a different approach.4.Never flush your medications down the toilet. IF YOU HAVE BEEN PRESCRIBED AN OPIOID FOR PAIN If you have been prescribed an opioid (such as hydrocodone, oxycodone or morphine), it is critical to understand the possible side effects and risks of opioid pain medications. Even when taken as directed, opioids can have several side effects including: Tolerance, meaning you might need to take more of a medication for the same pain relief. Nausea, vomiting and/or constipation. Sleepiness, dizziness, dry mouth, confusion, depression or itching. Physical dependence, meaning you have withdrawal symptoms when a medication is stopped, can develop within a few days. KNOW YOUR RESPONSIBILITIES It is important to know exactly how much and how often to take the opioid pain medications you are prescribed. Never take opioids in higher amounts or more often than prescribed. Do not combine opioids with alcohol or other drugs that cause drowsiness, such as benzodiazepines, also known as benzos, including diazepam and alprazolam, muscle relaxants or sleep aids. Never sell or share prescription opioids. This is illegal. Store opioids in a secure place and out of reach of others (including children, family, friends and visitors). The last page of this document has been signed and retained as a CHART COPY. Signatures Patient Education Materials Complex Ankle Fracture How to Use Cold Therapy, Jzdq-ke-Uzvk General Anesthesia, Adult, Care After Medication Leaflets My discharge plan and instructions have been reviewed and explained to me and I,GINA GILMAN understand my current condition and have read and understand these discharge instructions. I have received a written copy of the plan/instructions. If I have questions, I am aware that I should contact my d octor. Patient/Geodetic Technician Signature: Date/Time: Relationship to Patient: Witness Name/Signature: Date/Time: [facility]05-26-2023 Note [facility] ADMISSION HISTORY AND PHYSICIAL CHIEF COMPLAINT: HISTORY OF PRESENT ILLNESS: REVIEW OF SYSTEMS: ACTIVE PROBLEMS: (2) Anxiety ([id number]) HTN (hypertension) ([id number]) MEDICATIONS: Active Inpt Meds: None Active PRN Meds: None One Time Meds: (Completed) acetaminophen (Ofirmev IVPB (ANES)) IV Piggyback, Once, Stop: 03/20/23 8:53:00 EDT (Completed) dexAMETHasone (Decadron (ANES)) IV Push, Once, Stop: 03/20/23 8:53:00 EDT (Completed) fentaNYL (Sublimaze (ANES)) IV Push, Once, Stop: 03/20/23 8:48:00 EDT (Completed) glycopyrrolate (glycopyrrolate (ANES)) IV Push, Once, Stop: 03/20/23 8:48:00 EDT (Completed) lidocaine (Xylocaine 2% 5 mL syringe (ANES) (ANES)) IV Push, Once, Stop: 03/20/23 8:48:00 EDT (Completed) midazolam (Versed (ANES)) IV Push, Once, Stop: 03/20/23 8:48:00 EDT (Completed) ondansetron (Zofran (ANES)) IV Push, Once, Stop: 03/20/23 8:53:00 EDT (Completed) propofol (propofol (ANES)) IV Push, Once, Stop: 03/20/23 8:48:00 EDT Active IV Meds: Lactated Ringers Infusion 1,000 mL (LR 1,000 mL) Start: 03/20/23 7:06:00 EDT, Rate: 125 mL/hr, 03/20/23 7:06:00 EDT ALLERGIES: (1) No Known Medication Allergies FAMILY HISTORY: SOCIAL HISTORY: PHYSICAL EXAM: VITALS: IbbmhvRmcoREDqhjqBFGnF6FRX6MkmlLv(kg) 03/20 09:15----113--98--50366.8 03/20 09:10----64--98-- 03/20 09:05----63--98-- 03/20 09:00----59--98-- 03/20 08:55----59--98-- 24 Hr Tmax: 36.3 at 03/20 07:15 36 Hr Tmax: 36.3 at 03/20 07:15 Vital Signs are the last 5 in the past 48 hours. Weights display the last 5 within 7 days. Initial Wt: 03/20 131.8 kg 290 lb Current Wt: 03/20 131.8 kg 290 lb GENERAL: HEENT: CARDIOVASCULAR: RESPIRATORY: ABDOMEN: EXREMETIES: NEUROLOGICAL: PSYCHIATRIC: LABS: No 36hr Lab Data DIAGNOSTICS: IMPRESSION: PLAN: History and Physical Update I have examined the patient; reviewed the H&P and there are no changes to the H&P unless noted below. Digitally Signed by GUSTAVO PLATA DPM on 03/20/2023 09:26 AM [facility]05-26-2023 Anesthesiology Consult note Patient: GINA GILMAN Age: 32 years Sex: Male : 1990 Associated Diagnoses: None Author: LILIAN ORO APRN-ENVIRONMENTAL ENGINEER SCIENTIST Preoperative Information Anesthesia history Patient's history: negative. Family's history: negative. Health Status Allergies: Allergic Reactions (Selected) No Known Medication Allergies, Allergies (1) ActiveReaction No Known Medication AllergiesNone Documented Current medications: (Selected) Inpatient Medications Ordered LR 1000 mL: 125 mL/hr, Intravenous Documented Medications Documented ramipril 5 mg oral capsule: TAKE 1 CAPSULE BY MOUTH EVERY DAY, Medications (1) Active Scheduled: (0) Continuous: (1) Lactated Ringers Infusion 1000 mL 1,000 mL, Intravenous, 125 mL/hr PRN: (0) Problem list: Active Problems (2) Anxiety HTN (hypertension) Histories Past Medical History: No active or resolved past medical history items have been selected or recorded. Family History: Hypertension Mother Father Diabetes Mother Procedure history: Vasectomy ([id number]). Appendectomy (975090363). Tonsillectomy (257233828). Social History Social & Psychosocial Habits Alcohol 03/04/2023 Use: Never Substance Abuse 03/04/2023 Use: Never Tobacco 03/04/2023 Tobacco Use: Never (less than 100 in l Home/Environment 03/04/2023 Domestic Concerns None Living situation: Home/Independent . Physical Examination Vital Signs 03/20/2023 7:15 EDT Temperature Temporal Artery 36.3 DegC Apical Heart Rate 68 bpm Respiratory Rate 18 br/min Systolic Blood Pressure Non-Invasive 124 mmHg Diastolic Blood Pressure Non-Invasive 84 mmHg Vital Signs(last 24 hrs) Last Charted Resp Rate 18 br/min (MARCH 20 07:15) VNF571 mmHg (MARCH 20 07:15) DBP84 mmHg (MARCH 20 07:15) Measurements from flowsheet : Measurements 03/20/2023 7:15 EDT Height 185.4 cm Height in inches 73 inch(es) Admission Weight 131.8 kg Weight Lbs 290 lb Weight Method Stated [place] Body Weight 79.88 kg Admission Body Mass Index 38.34 m2 03/20/2023 7:13 EDT Admission Weight 131.8 kg (Modified) Body Mass Index 38.34 kg/m2 Body Mass Index 38.34 kg/m2 (Modified) Pain assessment: Pain Assessment 03/20/2023 7:15 EDT Primary Pain Intensity 0 Pain Scale Type 0-10 Pain scale . General: Alert and oriented. Airway: Normal temporomandibular joint mobility. Mallampati classification: II (soft palate, fauces, uvula visible). Dentition Evaluation: Denies loose/chipped teeth. Respiratory: Lungs are clear to auscultation, Respirations are non-labored. Cardiovascular: Normal rate, Regular rhythm. Neurologic: Alert, Oriented. Review / Management Results review: No qualifying data available , Lab results 03/20/2023 7:20 EDT [place] History and Physical 03/20/2023 7:15 EDT Height 185.4 cm Height in inches 73 inch(es) Admission Weight 131.8 kg Weight Lbs 290 lb Weight Method Stated [place] Body Weight 79.88 kg Admission Body Mass Index 38.34 m2 Temperature Temporal Artery 36.3 DegC Apical Heart Rate 68 bpm Respiratory Rate 18 br/min Systolic Blood Pressure Non-Invasive 124 mmHg Diastolic Blood Pressure Non-Invasive 84 mmHg Primary Pain Intensity 0 Pain Scale Type 0-10 Pain scale Monitor Alarms On and Limits Checked Heart Sounds ICU S1S2 Heart Rhythm Regular Oxygen Therapy Room air Oxygen Saturation 96 % Abdomen Description Non-distended, Soft Abdomen Palpation Non-Tender Bowel Sounds All Quadrants Present Urinary Elimination Voiding, no difficulties Skin Temperature Warm Skin Description Normal for ethnicity Skin Integrity Intact Skin Moisture General Dry Neurological Symptoms Patient denies Extremity Movement Equal Characteristics of Speech Clear Level of Consciousness Alert MARCO Yes Strength All Extremities Strong Tone All Extremities Normal Sensation All Extremities Intact Affect/Behavior Appropriate, Calm, Cooperative Orientation Oriented x 4 Allergies No Consent Form Signed Yes Patient Dressed In Hospital gown, No undergarments Pre-op Preparation Glasses removed CHG Preoperative Wash/Wipe Night before procedure, Day of procedure CHG Skin Prep Completed for Eligible Surgery History & Physical Update On Chart Yes History & Physical On Chart Yes Obstructive Sleep Apnea Assess Completed Yes Belongings At Bedside Cell phone, Pants, Shirt, Shoes, Undergarments, Wallet Activity Status ADL Ambulating in dasilva, Awake, Repositions self Assistive Device None NPO Status Maintained Standard Safety ID band on, Call device within reach, Bed in low position, Wheels locked, Precautions maintained Allergy Band on and Verified No Blood Band on and Verified No Patient ID Band on and Verified Yes Implants Verified Yes Pacemaker/AICD Verified Yes Anesthesia Consent Signed Yes Blood Consent Signed No Last Fluid Intake 03/19/2023 19:00 Last Food Intake 03/19/2023 17:00 Last Void 03/20/2023 7:00 03/20/2023 7:13 EDT Admission Weight 131.8 kg (Modified) Body Mass Index 38.34 kg/m2 Body Mass Index 38.34 kg/m2 (Modified) Infectious Disease Symptoms Patient states no symptoms Safety Brochure Information Reviewed Yes [facility] Video Viewed No Teaching Evaluation No further teaching needed Admission Note-Nursing Same Day Patient History (Modified) . Assessment and Plan [place] [employer] of Anesthesiologists (ASA) physical status classification: Class II. Anesthetic Preoperative Plan Anesthetic technique: General. Maintenance airway: Laryngeal mask airway. Postoperative pain management: Per surgeon. Risks discussed: nausea, vomiting, sore throat, dental injury, hypotension, allergic reaction, serious complications. Informed consent: signed by patient. Digitally Signed by LILIAN ORO on 03/20/2023 07:24 AM [facility]05-26-2023 Note [facility] ADMISSION HISTORY AND PHYSICIAL CHIEF COMPLAINT: HISTORY OF PRESENT ILLNESS: REVIEW OF SYSTEMS: ACTIVE PROBLEMS: (2) Anxiety ([id number]) HTN (hypertension) ([id number]) MEDICATIONS: Active Inpt Meds: None Active PRN Meds: None One Time Meds: None Active IV Meds: Lactated Ringers Infusion 1000 mL (LR 1000 mL) Start: 03/20/23 7:06:00 EDT, Rate: 125 mL/hr, 03/20/23 7:06:00 EDT ALLERGIES: (1) No Known Medication Allergies FAMILY HISTORY: SOCIAL HISTORY: PHYSICAL EXAM: VITALS: No Data Available 24 Hr Tmax: No Data Available 36 Hr Tmax: No Data Available Vital Signs are the last 5 in the past 48 hours. Weights display the last 5 within 7 days. Initial Wt: No Data Available Current Wt: No Data Available GENERAL: HEENT: CARDIOVASCULAR: RESPIRATORY: ABDOMEN: EXREMETIES: NEUROLOGICAL: PSYCHIATRIC: LABS: No 36hr Lab Data DIAGNOSTICS: IMPRESSION: PLAN: History and Physical Update I have examined the patient; reviewed the H&P and there are no changes to the H&P unless noted below. Digitally Signed by GUSTAVO PLATA DPM on 03/20/2023 07:20 AM [facility]12-14-2022 Miscellaneous Notes* Telephone Encounter - Alisia Montejo - 10/08/2022 7:45 AM EST Patient given results and verbalized understanding of instructions given. Alisia Montejo * Telephone Encounter - Denice Webb APRN.CENTRAL SUPPLY TECHNICIAN SUPERVISOR - 10/08/2022 7:35 AM EST Please notify of negative covid test. Please notify positive flu. Continue comfort measures for symptoms as discussed at visit yesterday Any worsening symptoms follow up with PCP or ER. Denice Webb APRN.CNP [facility] Instructions* Patient Instructions* Elyse Akbar PA-C - 10/07/2022 7:54 PM EST [facility] PATIENT INFO INFLUENZA INTRODUCTION Influenza (commonly called the flu) is a highly contagious illness that can occur in children or adults of any age. It occurs more often in the winter months because people spend more time in close contact with one another. The flu is spread easily from kmcjqh-wz-yilxpu by coughing, sneezing, or touching surfaces. Every year, complications of the flu require more than 200,000 people in the [place] to be hospitalized. Serious illness is more likely in the very young, older adults, women, and people who have certain health problems such as asthma or other forms of lung disease. There have been several widespread flu outbreaks (called pandemics), which led to the deaths of many people worldwide. These outbreaks occurred when new strains of influenza viruses formed (often from pigs or birds) and humans became infected because they had no immunity to these viruses. FLU SYMPTOMS Symptoms of seasonal flu can vary from person to person, but usually include: Fever (temperature higher than 100 F or 37.8 C) Headache and muscle aches Fatigue Cough and sore throat may also be present People with the flu usually have a fever for two to five days. This is different than fever caused by other upper respiratory viruses, which usually resolve after 24 to 48 hours. Some people have cold-like symptoms (runny nose, sore throat) during the flu while others have fever and muscle aches. Flu symptoms usually improve over two to five days, although the illness may last for a week or more. Weakness and fatigue may persist for several weeks Flu complications -- Complications of influenza occur in some people; pneumonia is the most common complication. Pneumonia is a serious infection of the lungs, and is more likely to occur in people over the age of 65, people who live in assistant terminal manager care facilities (nursing homes), and those with other illnesses such as diabetes or conditions affecting the heart or lungs. FLU DIAGNOSIS Influenza is usually diagnosed based on symptoms (fever, cough and muscle aches). Lab testing for influenza is performed in certain cases, such as during a new influenza outbreak in a community. FLU TREATMENT When to seek help -- Most people with the flu recover within one to two weeks without treatment. However, serious complications of the flu can occur. Call your doctor or nurse immediately if: You feel short of breath or have trouble breathing You have pain or pressure in your chest or stomach You have signs of being dehydrated, such as dizziness when standing or not passing urine You feel confused You cannot stop vomiting or you cannot drink enough fluids There are several groups of people who are at increased risk for flu complications. These include women, young children (<5 years of age, and especially <2 years of age), people ?65 years of age, and people with certain diseases such as chronic lung disease (such as asthma), heart disease, diabetes, immunosuppressing conditions (such as HIV infection or transplantation), and some other diseases. If you or your child has flu symptoms and is at increased risk of flu complications, you should call your healthcare provider. Treat symptoms -- Treating the symptoms of influenza can help you to feel better, but will not makethe flu go away faster. Rest until the flu is fully resolved, especially if the illness has been severe Fluids -- Drink enough fluids so that you do not become dehydrated. One way to freight booker if you are drinking enough is to look at the color of your urine. Normally, urine should be light yellow to nearlycolorless. If you are drinking enough, you should pass urine every three to five hours. Acetaminophen (such as Tylenol and other brands) can relieve fever, headache, and muscle aches. Aspirin, and medicines that include aspirin (eg, bismuth subsalicylate; PeptoBismol), are not recommended for children under 18 because aspirin can lead to a serious disease called Radha syndrome. Cough medicines are not usually helpful; cough usually resolves without treatment. We do not recommend cough or cold medicine for children under age six years. Antiviral treatment -- Antiviral medicines can be used to treat or prevent influenza. When used as a treatment, the medicine does not eliminate flu symptoms, although it can reduce the severity and duration of symptoms by about one day. Not every person with influenza needs an antiviral medicine; the decision is based upon your risk of developing complications of influenza. Antiviral treatment is most effective for seasonal influenza when it is taken within the first 48 hours of flu symptoms. Side effects -- Zanamivir and oseltamivir can cause mild side effects, including nausea and vomiting; zanamivir, which is inhaled, can cause difficulty breathing in some cases. Most people are able to continue the medicine despite the side effects. Antibiotics -- Antibiotics are NOT useful for treating viral illnesses such as influenza. Antibiotics should only used if there is a bacterial complication of the flu such as bacterial pneumonia, earinfection, or sinusitis. Antibiotics can cause side effects and lead to development of antibiotic resistance. [facility] History of Present illness Narrative* Elsye Akbar PA-C - 10/07/2022 7:47 PM EST Subjective HPI HPI Gina Gilman is a 32 year old male who presents today for CC of nausea/vomiting, fevers, "lungs burning," intense cough since Thursday. Tmax 102. Slightly SOB. No hx of asthma of underlying lung disease. Pt has tried dayquil and advil. BP 136/86 Pulse 102 Temp 37.4 C (99.4 F) Resp 16 Wt (!) 139.7 kg (308 lb) SpO2 96% ALLERGIES No Known Allergies There is no problem list on file for this patient. Family History Problem Relation Age of Onset Diabetes Mother Hypertension Father Psychiatry Mother Social History Tobacco Use Smoking status: Former Packs/day: 0.50 Types: Cigarettes Quit date: 01/02/2013 Years since quittin.7 Smokeless tobacco: Never Substance Use Topics Alcohol use: No Drug use: No Review of Systems Constitutional: Positive for malaise/fatigue. Negative for chills and fever. HENT: Positive for congestion and sore throat. Negative for ear pain and sinus pain. Respiratory: Positive for cough, shortness of breath and wheezing. Negative for sputum production. Cardiovascular: Negative for chest pain. Gastrointestinal: Positive for nausea and vomiting. Negative for abdominal pain, blood in stool, constipation, diarrhea, heartburn and melena. Genitourinary: Negative for dysuria, flank pain, frequency, hematuria and urgency. Skin: Negative for rash. Neurological: Negative for dizziness and headaches. Psychiatric/Behavioral: The patient is not nervous/anxious. Objective BP 136/86 Pulse 102 Temp 37.4 C (99.4 F) Resp 16 Wt (!) 139.7 kg (308 lb) SpO2 96% Physical Exam Vitals and nursing note reviewed. Constitutional: General: He is not in acute distress. Appearance: He is well-developed. He is ill-appearing (Mild; Generally fatigued appearance.). He isnot toxic-appearing. HENT: Head: Normocephalic and atraumatic. Right Ear: Tympanic membrane, ear canal and external ear normal. No middle ear effusion. Tympanic membrane is not injected, perforated, erythematous, retracted or bulging. Left Ear: Tympanic membrane, ear canal and external ear normal. No middle ear effusion. Tympanic membrane is not injected, perforated, erythematous, retracted or bulging. Nose: No mucosal edema or rhinorrhea. Right Sinus: No maxillary sinus tenderness or frontal sinus tenderness. Left Sinus: No maxillary sinus tenderness or frontal sinus tenderness. Mouth/Throat: Pharynx: Uvula midline. No oropharyngeal exudate or posterior oropharyngeal erythema. Tonsils: No tonsillar abscesses. Cardiovascular: Rate and Rhythm: Normal rate and regular rhythm. Heart sounds: Normal heart sounds. Pulmonary: Effort: Pulmonary effort is normal. Breath sounds: Normal breath sounds. No decreased breath sounds, wheezing, rhonchi or rales. Musculoskeletal: Cervical back: Normal range of motion. Lymphadenopathy: Head: Right side of head: No submental, submandibular, tonsillar, preauricular, posterior auricular or occipital adenopathy. Left side of head: No submental, submandibular, tonsillar, preauricular, posterior auricular or occipital adenopathy. Cervical: No cervical adenopathy. Right cervical: No superficial or posterior cervical adenopathy. Left cervical: No superficial or posterior cervical adenopathy. Skin: General: Skin is warm and dry. Neurological: Mental Status: He is alert and oriented to person, place, and time. Psychiatric: Mood and Affect: Affect normal. Behavior: Behavior is cooperative. ASSESSMENT/PLAN: 1. Flu-like symptoms - ICD9: 780.99, ICD10: R68.89 (primary diagnosis) Suspect flu based on clinical presentation. Covid and flu testing ordered; Results will be released to [facility] in 24-48 hours. Discussed quarantine, social distancing, hand washing/proper hygiene. Rest, fluids, OTC medications discussed. - COVID WITH FLUA+B, ROUTINE - PROMETHAZINE-DM 6.25 MG-15 MG/5 ML ORAL SYRUP - PREDNISONE 20 MG TABLET 2. SOB (shortness of breath) - ICD9: 786.05, ICD10: R06.02 Rxes for prednisone burst (advised to start tomorrow in the AM) and albuterol inhaler - advised scheduled dosing of inhaler Q4-6 hours PRN. Promethazine DM to assist nighttime cough and nausea. Discussed medication indications, proper use, and potential adverse effects. All questions and concerns addressed to patient satisfaction. - COVID WITH FLUA+B, ROUTINE - PROMETHAZINE-DM 6.25 MG-15 MG/5 ML ORAL SYRUP Pt advised to see PCP if symptoms persist or progress. Reviewed red flags with patient and when to seek care sooner. The patient indicates understanding of these issues and agrees with the plan. Elyse Akbar PA-C [facility] Plan note Future Appointments [facility] Evaluation noteNo assessment information available [facility] Work Phone: Evaluation note* Diagnosis Flu-like symptoms- Primary Other general symptoms SOB (shortness of breath) Shortness of breath documented in this encounter [facility] note* Diagnosis Bacterial sinusitis- Primary Unspecified sinusitis (chronic) Eye drainage Redness or discharge of eye Sinus pressure Other diseases of nasal cavity and sinuses documented in this encounter [facility] note* Diagnosis Viral URI with cough- Primary Acute upper respiratory infections of unspecified site [facility] N[facility] No data available for this section [facility] Hospital Discharge instructions No data available for this section [facility] Progress note No data available for this section [facility] Reason for referral (narrative)No reason for referral information [facility] Work Phone: Chief Complaint and Reason for Visit Chief Complaint PCR COVID TEST/CARL Chief Complaint LEFT ANKLE PAIN Family History No Family History Records Found Relationship Condition Age at Onset Recorded Date/T partha mother Diabetes mellitus Unknown Hypertension Unknown father Hypertension Unknown Advance Directives No Advanced Directives Records Found Advance Directive Response Recorded Date/ Time Living Will No January 01, 2021 5:38pm Power of Cafe Or Restaurant Manager No January 01 5:38pm Advance Directive Response Recorded Date/ Time Living Will No January 01, 2021 4:38pm Power of Cafe Or Restaurant Manager No January 01 4:38pm Health Concerns Infection Onset Date Last Indicated Resolved Time COVID-19 Rule-Out 10/07/2022 10/07/2022 Infection Onset Date Last Indicated Resolved Time COVID-19 Rule-Out 10/07/2022 10/07/2022 10/08/2022 5:49 AM EST Summary Purpose Additional Source Comments Goals (unrecognized section and content) Goals may be documented in a n alternate sectionGoals may be documented in an alternate section No data available for this section No data available for this sectionGoals may be documented in an alternate sectionGoals may be documented in an alternate section Source Comments (unrecognize d section and content) In the event this informatio n is protected by the Federal Confidentiality of Alcohol and Drug Abuse Patient Records regulations: The Federal rules restrict any use of the information to criminally investigate or prosecute any alcohol or drug abuse patient.[facility] the event this information is protected by the Federal Confidentiality of Alcohol and Drug Abuse Patient Records regulations: The Federal rules restrict any use of the information to criminally investigate or prosecute any alcohol or drug abuse patient.[facility] the event this information is protected by the Federal Confidentiality of Alcohol and Drug Abuse Patient Records regulations: The Federal rules restrict any use of the information to criminally investigate or prosecute any alcohol or drug abuse patient.[facility] the event this information is protected by the Federal Confidentiality of Alcohol and Drug Abuse Patient Records regulations: The Federal rules restrict any use of the information to criminally investigate or prosecute any alcohol or drug abuse patient.[facility] Hospital[facility] the event this information is protected by the Federal Confidentiality of Alcohol and Drug Abuse Patient Records regulations: The Federal rules restrict any use of the information to criminally investigate or prosecute any alcohol or drug abuse patient.[facility] Hospital[facility] the event this information is protected by the Federal Confidentiality of Alcohol and Drug Abuse Patient Records regulations: The Federal rules restrict any use of the information to criminally investigate or prosecute any alcohol or drug abuse patient.[facility] Reason for Visit (unrecogniz ed section and content) Reason Comments Chest Congestion cough, nasal congest ion, bodyaches x 2 days Reason Comments Results Reason Comments Cough Congestion, eye disc harge, sinus issues.x1 mth Reason Comments Cough Cough, chest congest ion, bodyaches and RAE x 1 day Care Teams (unrecognized sec tion and content) Team Status: Active Member Role Status Dates No Primary Care Physician Family Provider Active Dr. Micah Mathis MD Primary Care Provider Active Team Status: Inactive Member Role Status Dates Dr. Micah Mathis MD Primary Care Provider Active Dr. Gustavo Plata DPM Attending Provider, Referring Fabby beard Active Team Status: Inactive Member Role Status Dates Dr. Micah Mathis MD Primary Care Provider, Attending Fabby beard Active Gsa Coordinator Relationship Specialty Start Date End Date Micah Mathis MD [address] [place] [address] PCP - General Family Medicine 11/06/23 Gsa Coordinator Relationship Specialty Start Date End Date Micah Mathis MD [address] [place] [address] PCP - General Family Medicine 11/06/23 Gsa Coordinator Relationship Specialty Start Date End Date Micah Mathis MD [address] [place] [address] PCP - General Family Medicine 11/06/23 Gsa Coordinator Relationship Specialty Start Date End Date Micah Mathis MD [address] [place] [address] PCP - General Family Medicine 11/06/23 Team Status: Inactive Member Role Status Dates Dr. Micah Mathis MD Primary Care Provider Active Start: March 23, 2025 End: March 23, 2025 Dr. Micah Mathis MD Attending Provider Active art: March 23, 2025 End: March 23, 2025 Dr. Micah Mathis MD Referring Provider Active St art: March 23, 2025 End: March 23, 2025 (unrecognized sect ion and content) No Status Records FoundNo Status Records FoundNo Status Records Found INFORMATION SOURCE (unrecogn ized section and content) DATE CREATED AUTHOR 04/07/2023 [facility] DATE CREATED AUTHOR AUTHOR'S ORGANIZ ATION 02/08/2025 [facility] DATE CREATED AUTHOR AUTHOR'S ORGANIZ ATION 03/29/2025 [facility] FOR RECORDS PERTAINING TO PATIENTS WHO ARE OR HAVE BEEN ENROLLED IN A CHEMICAL DEPENDENCY/SUBSTANCEABUSE PROGRAM, SOME INFORMATION MAY BE OMITTED. This clinical summary was aggregated from multiple sources. Caution should be exercised in using it in the provision of clinical care. This summary normalizes information from multiple sources, and as a consequence, information in this document may materially change the coding, format and clinical context of patient data. In addition, data may be omitted in some cases. CLINICAL DECISIONS SHOULD BE BASED ON THE PRIMARY CLINICAL RECORDS. [employer] provides no warranty or guarantee of the accuracy or completeness of information in this document.
--- NOTE | 2025-09-07 00:40 | CT_ITS ---
PROCEDURE: BRAIN/HEAD WITHOUT CONTRAST 09/07/2025 REASON FOR EXAM: HEAD INJURY none TECHNIQUE: Procedure Code: CTBR Modality: CT Procedure: BRAIN/HEAD WITHOUT CONTRAST Coronal and Sagittal reconstruction series were provided. One or more dose reduction techniques were used (e.g., Automated exposure control, adjustment of the mA and/or kV according to patient size, use of iterative reconstruction technique. RADIATION DOSE SUMMARY: CTDI Vol 44.99 mGy DLP :846.73 mGycm COMPARISON: none FINDINGS: The visualized brain parenchyma shows normal appearance. No focal parenchymal abnormalities are demonstrated. Pacheco-white matter differentiation is maintained. Normal CT appearance of the posterior fossa structures. No intracerebral or extra-axial hemorrhage. No midline shifts or deformity. Normal size and configuration of the cerebral ventricles. No definite calvarial fractures. The osseous structures in the skull base are unremarkable. Scanned paranasal sinuses show right maxillary focal mucosal thickening. CT/Brain/Head without Contrast IMPRESSION: No intracerebral or extra-axial hemorrhage. No acute cerebrovascular insult. If clinical symptoms persist, further evaluati on with MRI may be considered as clinically warranted. Reading Location[facility] [address]
--- NOTE | 2025-09-07 01:19 | EDS_ITS ---
HPI History of Present Illness Chief Complaint: Head Injury Informant: patient Narrative Narrative: Patient is a 34-year-old male who states around 1030 this morning he was at work. He was bending down and another coworker was trying to loosen a pipe. He states the wrench gave way and struck him in the back of the head just below his hard hat. He denies any loss of consciousness following the injury. He states however he did have a headache that came on quickly and 1 bout of vomiting. He states since that injury he has had persistent headache with nausea and light sensitivity. He he denies any history of bleeding disorder or blood thinner use. As his symptoms have not resolved over time he presents for evaluation [facility] Medical History (Updated 09/07/25 @ 02:[address] Nilesh Davies DO) Epididymitis Encounter for sterilization Home Medications Medication Instructions Recorded Last Taken Type escitalopram oxalate 10 mg tablet 10 mg PO DAILY 09/06 Unknown History ramipril 10 mg capsule 10 mg PO DAILY 09/06/25 Unkn own History Allergy/AdvReac Type Severity Reaction Status Date / Time No Known Allergies Allergy Verified 09/06/25 18:38 Family History Mother Diabetes Hypertension Father Hypertension Surgical History S/P appendectomy S/P vasectomy History of tonsillectomy Social History Smoking Status: Former smoker alcohol intake: never ROS ROS ED Constitutional Constitutional ED: Denies chills or fever(s) Eyes Eyes: Reports other Details: Positive photophobia ENT ENT ED: Denies sore throat Cardiovascular Cardiovascular: Reports other Details: Negative syncope ; Denies chest pain Respiratory/Chest Respiratory/Chest: Denies cough or dyspnea Gastrointestinal Gastrointestinal: Reports nausea and vomiting; Denies abdominal pain or diarrhea Musculoskeletal Musculoskeletal: Denies neck pain Integumentary Denies Abrasions Neurologic Neurologic: Reports headache(s); Denies paresthesias or weakness Hematologic/Lymphatic Hematologic/Lymphatic: Denies easy bleeding or easy bruising EXAM Physical Exam Const Vital Signs: 09/06/25 18:38 09/06/25 23:40 09/06/25 23:41 Temperature 97 F L Temperature Source Oral Pulse Rate 83 74 Respiratory Rate 16 18 Blood Pressure 170/111 H Blood Pressure Mean 130 Pulse Ox 99 99 Oxygen Delivery Method Room Air Room Air 09/07/25 01:30 Temperature 97.8 F Temperature Source Pulse Rate 77 Respiratory Rate 18 Blood Pressure 156/60 H Blood Pressure Mean 92 Pulse Ox 99 Oxygen Delivery Method Positive well nourished, well developed and obese General Appearance ED: well developed; Negative for pallor Nutritional Appearance: obese HEENT HEENT Narrative: Normocephalic atraumatic No signs of depressed or basilar skull fracture No obvious abrasion or hematoma noted Eyes PERRL and EOMs intact bilaterally General Eye ED: Negative for scleral icterus Neck supple Neck Narrative: No bony deformity or step-off of the cervical spine No midline pain with palpation Patient can move his neck in all directions without pain Resp normal respiratory effort and clear to auscultation bilaterally Cardio regular rate and regular rhythm Extremity normal to inspection Neuro oriented x3, CN's II-XII intact bilaterally and no sensory deficits noted Neuro Narrative: GCS of 15 Cranial nerves II through XII are grossly intact there are no focal neurologic deficit No pronator drift no dysmetria no truncal ataxia NIH stroke scale score of 0 Sensorium / Orientation: alert Motor Exam: strength 5/5 throughout Psych mental status grossly normal Skin no rashes or lesions noted and no wounds General Skin Exam: Negative for jaundice or pallor MDM MDM MDM Narrative Medical decision making narrative: Patient arrived to the ER hypertensive but otherwise with stable vitals. He did a direct trauma to the occipital portion of his scalp roughly 12 hours ago. He does not have signs of depressed or basilar skull fracture but as he reports photophobia with headache and 1 bout of nausea vomiting there is concern for potential skull fracture versus subarachnoid or subdural hemorrhage. Therefore a noncontrast CT was obtained. This revealed no signs of acute injury. His history and exam is consistent with concussion following a closed head injury. However as he is neurologically intact without signs of internal trauma or open wounds there is no need for further intervention and he is otherwise safer discharge History & Record Review Discussion w/independent historian: Patient Radiography Diagnostic Testing: Clinical Impression(s) from Imaging Studies Brain CT 09/07/25 00:40 IMPRESSION: No intracerebral or extra-axial hemorrhage. No acute cerebrovascular insult. If clinical symptoms persist, further evaluation with MRI may be considered as clinically warranted. Reading [facility] Discharge Plan Triage Chief Complaint: Head Injury ED Provider: Nilesh Davies Dx/Rx/DC Orders Clinical Impression: Closed head injury, Concussion, Hypertension Instructions: Concussion Dc, ED Head Injury (Adult) Prescriptions: No Action ramipril 10 mg capsule 10 mg PO DAILY escitalopram oxalate 10 mg tablet 10 mg PO DAILY Primary Care Provider: Quintin Mathis Referrals: [facility] [Provider Group] Quintin Mtahis MD [Primary Care Provider, Family Practice] Activity Restrictions/Additional Instructions: Your CT scan showed no signs of skull fracture or brain bleed. Your history and exam indicate that you have a mild concussion. Please avoid bright flashing lights as this can stimulate headache and make symptoms worsen or last longer. Follow-up with your family doctor for repeat evaluation and/or the [facility] and return to the ER should you have any further concerns Print Language: Citizen [place] Disposition Disposition: Home, Self Care Discharge Date/Time: 09/07/25 01:30 D/C Safety Score for UGIB Assessment Anirudh-Blatchford Bleeding Score (GBS): Stratifies upper GI bleeding patients who are "low-risk" and candidates for outpatient management. Hemoglobin, BUN, Recent Vital Signs: Pulse Rate 77 Blood Pressure 156/60 Score Interpretation: Score of 0: A GBS of 0 is a “Low Risk” GI bleed, and is highly sensitive (99.6% in a 2007 retrospective study) for predicting which patients did not require any “medical intervention”: blood transfusion, endoscopy, or surgery. This was confirmed in a 2009 [facility] study where patients with a score of 0 were actually discharged and had no GI bleeding mortality at 6 month followup Score above 0: A GBS greater than zero suggests a “High Risk” GI bleed that is likely to require “medical intervention”: transfusion, endoscopy, or surgery. A higher GBS also correlated with a higher likelihood of needing intervention Scores >/= 6 are associated with >50% risk of needing intervention D/C Safety Score for LGIB Assessment Assessment Tool: Readmission and adverse event risk in patients with acute lower GI bleeding. Hemoglobin and Recent Vital Signs: Pulse Rate 77 09/07/25 01:30 Blood Pressure 156/60 09/07/25 01:30 Score Interpretation: Probability Percentage of safe discharge (absence of rebleeding, blood transfusion, therapeutic intervention, 28 day readmission, or ) Score of 8 or below: Consider discharge, with appropriate precautions. Score of 9 or above: Discharge NOT recommended. Consider admission with further workup and resuscitation as necessary.
[2025-09-07 01:30] VITALS: BP 156/60; PULSE 77; RESP 18; TEMP 36.6; O2SAT 99
== END 2025-09-07 01:30 | disposition home or self-care (01) ==
PROVIDERS: Emergency Provider Emergency Medicine; PCP Family Medicine; Visit Provider Emergency Medicine
DX: S06.0X0A Concussion without loss of consciousness, initial encounter (principal); I10 Essential (primary) hypertension; Z87.891 Personal history of nicotine dependence; Z79.899 Other long term (current) drug therapy; X58.XXXA Exposure to other specified factors, initial encounter
CPT/HCPCS: 70450; 99282